=== PATIENT | male | born 1965 | race Caucasian/White ===

== ENCOUNTER 2022-09-15 15:39 | Inpatient (IN) | payer MEDICARE, MEDICAID, SELFPAY ==
[2022-09-15 15:40] VITALS: BP 145/93; PULSE 87; RESP 16; TEMP 35.6; O2SAT 96; BMI 23.2
--- NOTE | 2022-09-15 15:55 | CT_ITS ---
EXAM: CT ABDOMEN AND PELVIS WITH INTRAVENOUS CONTRAST CLINICAL INDICATION: Pain TECHNIQUE: Helically acquired images were obtained of the abdomen and pelvis with intravenous contrast. This CT exam was performed using one or more of the following dose reduction techniques: automated exposure control, adjustment of the mA and/or kV according to patient size, and/or use of iterative reconstruction technique. This report was created using [employer] report generation technology. CONTRAST: IV 100mL Isovue-300 COMPARISON: None. FINDINGS: LOWER THORAX: Normal. Lung bases are clear. No cardiomegaly. No pericardial effusion. ABDOMEN: LIVER: Homogeneous. No focal mass. GALLBLADDER AND BILE DUCTS: Gallbladder is absent. No intra- or extrahepatic biliary ductal dilation. PANCREAS: Extensive changes of acute pancreatitis noted with 6 cm pseudocyst involving the neck and proximal body of the pancreas, prominent peripancreatic edema along the anterior pararenal space with extension into the duodenal ligament region. SPLEEN: Normal. Normal size without focal cystic or solid mass. ADRENALS: Normal. No nodules. KIDNEYS AND URETERS: 5.2 cm left renal cyst. Normal renal size and position. No hydronephrosis. STOMACH AND BOWEL: Gaseous distention of the transverse colon likely related to ileus from acute pancreatitis. PELVIS: APPENDIX: Surgical clips at the base of the cecum consistent with appendectomy. BLADDER: Normal. REPRODUCTIVE: Unremarkable as visualized. No mass. ABDOMEN and PELVIS: INTRAPERITONEAL SPACE: Small amount of ascites noted within the lesser sac. BONES/JOINTS: Normal. No suspicious lytic or blastic abnormality. SOFT TISSUES: Normal. No discrete abdominal or pelvic wall hernia. VASCULATURE: Normal. Abdominal aorta is non-dilated. LYMPH NODES: Fat stranding along the small bowel mesentery noted associated with mildly enlarged mesenteric lymph nodes consistent with panniculitis. CT/Abdomen/Pelvis W IV Cont ONLY IMPRESSION: Acute pancreatitis with 6 cm pseudocyst involving the neck and body of the pancreas. Electronically Signed: Jamel Johnston MD at 16:51 EST ,
--- NOTE | 2022-09-15 15:56 | ED.VIS.GI ---
HPI HPI - GI History of Present Illness Chief Complaint: Abd Pain Narrative Narrative: 56-year-old male presents with his because of abdominal pain and weight loss that he has had since August 28 18 days ago. They relate history that he had multiple issues going on at the time when he was transferred to [facility]. states that he had pancreatitis at the time, along with a bowel blockage. 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 They have placed him on medications, and he followed up with his seed packer yesterday. They state that he has had significant weight loss over the last few weeks. Additionally he has had continued abdominal pain, but states that it is getting worse. His past medical history does include diabetes and possibly coronary artery disease. Patient denies that ever since his discharge over a week ago that he has not had nausea or vomiting. No diarrhea, no problems with bowel movements. No dysuria or hematuria. No fevers or chills. He has continuous abdominal pain that he feels is getting worse. No exacerbating or alleviating factors. His states that the seed packer performed lab work yesterday, and he was told that his potassium was high but they were unsure if that was related to possible ongoing pancreatitis. [facility] Medical History (Updated 09/15/22 @ 18:[address] Lamberto Franco, DO) Hyperthyroidism Home Medications aspirin 81 mg chewable tablet 81 mg PO DAILY HEART HEALTH 09/15/22 [History Last Taken 09/15/22] atorvastatin 40 mg tablet 40 mg PO DAILY CHOLESTEROL 09/15/22 [History Last Taken 09/14/22] buspirone 5 mg tablet 5 mg PO TID ANXIETY 09/15/22 [History Last Taken 09/14/22] metformin 500 mg tablet 500 mg PO DAILY 09/15/22 [History Last Taken 09/14/22] methimazole 10 mg tablet 10 mg PO 5X/DAY thyroid 09/15/22 [History Last Taken 09/15/22] omeprazole 20 mg capsule,delayed release 20 mg PO DAILY ACID REFLUX 09/15/22 [History Last Taken Unknown] propranolol 40 mg tablet 40 mg PO 4X/DAY HEART 09/15/22 [History Last Taken 09/14/22] sertraline 100 mg tablet 200 mg PO DAILY depression/anxiety 09/15/22 [History Last Taken 09/14/22] trazodone 100 mg tablet 200 mg PO QHS PRN Insomnia 09/15/22 [History Last Taken 09/14/22] Allergy/AdvReac Type Severity Reaction Status Date / Time No Known Allergies Allergy Verified 09/15/22 15:42 Family History (Updated 09/15/22 @ 18:[address] Lamberto Franco DO) Father Graves disease Surgical History (Updated 09/15/22 @ 18:[address] Lamberto Franco DO) Hx of cholecystectomy Social History (Updated 09/15/22 @ 18:[address] Lamberto Franco DO) Smoking Status: Unknown if ever smoked alcohol intake: former substance use type: does not use ROS ROS ED ROS Narrative Constitutional: No fever, no chills. Significant weight loss over the last 3 weeks. HEENT: No sore throat. No neck pain. No loss of vision. No rhinorrhea. Cardiovascular: No chest pain. No palpitations. No pedal edema. Respiratory: No cough, no shortness of breath. Abdominal: Positive epigastric to periumbilical abdominal pain. No nausea. No vomiting. No diarrhea. Genitourinary: No dysuria. No hematuria. Musculoskeletal: No myalgias. No arthralgias. Neurologic: No headaches. No dizziness. No lightheadedness. Skin: No rash. No change in color. Psychiatric: No depression. No anxiety. EXAM Physical Exam Narrative Exam Narrative: Afebrile. Vital signs noted. HEENT: Normocephalic. Atraumatic. PERRL, EOMI. Neck soft and supple. No point tenderness or step off. Cardiovascular: Regular rate and rhythm. No murmurs, rubs, or gallops appreciated. Respiratory: No tachypnea. Lungs clear to auscultation bilaterally. Gastrointestinal: Abdomen soft, mild epigastric and periumbilical tenderness with normoactive bowel sounds. No rebound or guarding. Neurological: Awake. Alert. Nonfocal, nonlateralizing. Skin: No rash. Normal color. No pallor. Musculoskeletal: No pedal edema. Full range of motion extremities. Const Vital Signs: 09/15/22 15:40 09/15/22 18:00 09/15/22 18:00 Temperature 96.1 F L 98.8 F Temperature Source Temporal Temporal Pulse Rate 87 79 Respiratory Rate 16 16 Blood Pressure 145/93 H 127/66 H 127/66 H Blood Pressure Mean 110 86 86 Pulse Ox 96 98 Oxygen Delivery Method Room Air Room Air MDM MDM MDM Narrative Medical decision making narrative: Comprehensive work-up was pursued. He was bolused normal saline 1 L intravenously. I will obtain CBC, CMP, and lipase along with CT imaging and urinalysis. CBC shows leukocytosis of 28.9, hemoglobin normal at 12.7, hematocrit 38.6. CMP is consistent with dehydration with a hyponatremia of 123, mild hypokalemia 5.6. I do not feel that hyperkalemia protocol needs to be instituted. I did obtain an EKG and interpreted as normal sinus rhythm at 83 bpm without ectopy or acute ST changes. I do not see peaked T waves. I do not feel that calcium gluconate is currently indicated. Chloride is low at 88. He has a BUN of 47 and a slight elevation of his creatinine at 1.66. While glucose is elevated at 310, he has a normal anion gap of 10. AST and ALT are normal with a slightly elevated alk phos of 131. Lipase is elevated at 733. Urinalysis is negative for infection with 0-5 white cells. I do not feel antibiotics are indicated. His CT of the abdomen and pelvis with IV contrast shows acute pancreatitis with a 6 cm pseudocyst at the neck and body of the pancreas. At this point in time, I do feel that he requires admission. I discussed patient with Dr. Franco. Patient will be admitted to the PCU in stable condition. Lab Data Attestation: I reviewed the patient's lab results. Labs: Laboratory Results - last 24 hr 09/15/22 09/15/22 09/15/22 16:00 16:00 16:00 WBC 28.9 H RBC 4.51 Hgb 12.7 Hct 38.6 MCV 85.6 MCH 28.2 MCHC 32.9 RDW Std Deviation 38.7 RDW Coeff of Fili 12.3 Plt Count 343 MPV 11.6 Immature Gran % (Auto) 1.800 H Neut % (Auto) 88.2 H Lymph % (Auto) 5.3 L [place] % (Auto) 4.5 Eos % (Auto) 0.1 Baso % (Auto) 0.1 Absolute Neuts (auto) 25.5 H Absolute Lymphs (auto) 1.53 Nucleated RBC % 0 Differential Comment SCANNED Sodium 123 L Potassium 5.6 H Chloride 88 L Carbon Dioxide 25.0 Anion Gap 10 BUN 47 H Creatinine 1.66 H Estim Creat Clear Calc 38.83 Est GFR (MDRD) Af Amer 41 L Est GFR (MDRD) Non-Af 34 L BUN/Creatinine Ratio 28.3 H Glucose 310 H Calcium 9.3 Total Bilirubin 1.20 H AST 19 ALT 28 Alkaline Phosphatase 131 H Total Protein 8.2 Albumin 2.2 L Globulin 6.0 H Albumin/Globulin Ratio 0.4 L Lipase 733 H Free T4 2.60 H Urine Color Urine Clarity Urine pH Ur Specific [place] Urine Protein Urine Glucose (UA) Urine Ketones Urine Occult Blood Urine Nitrite Urine Bilirubin Urine Urobilinogen Ur Leukocyte Esterase Urine RBC Urine WBC Ur Squamous Epith Cells Urine Bacteria Hyaline Casts Fine Granular Casts Urine Mucus 09/15/22 16:40 WBC RBC Hgb Hct MCV MCH MCHC RDW Std Deviation RDW Coeff of Fili Plt Count MPV Immature Gran % (Auto) Neut % (Auto) Lymph % (Auto) [place] % (Auto) Eos % (Auto) Baso % (Auto) Absolute Neuts (auto) Absolute Lymphs (auto) Nucleated RBC % Differential Comment Sodium Potassium Chloride Carbon Dioxide Anion Gap BUN Creatinine Estim Creat Clear Calc Est GFR (MDRD) Af Amer Est GFR (MDRD) Non-Af BUN/Creatinine Ratio Glucose Calcium Total Bilirubin AST ALT Alkaline Phosphatase Total Protein Albumin Globulin Albumin/Globulin Ratio Lipase Free T4 Urine Color Rola Urine Clarity Cloudy Urine pH 5.0 Ur Specific [place] 1.020 Urine Protein 30 H Urine Glucose (UA) 250 H Urine Ketones 5 H Urine Occult Blood 25 H Urine Nitrite Negative Urine Bilirubin 1 H Urine Urobilinogen Normal Ur Leukocyte Esterase 25 H Urine RBC 0-5 SEEN Urine WBC 0-5 SEEN Ur Squamous Epith Cells 0-5 SEEN Urine Bacteria 4+ Hyaline Casts 0-5 SEEN Fine Granular Casts 0-5 SEEN Urine Mucus 0 SEEN Radiography Diagnostic Testing: Clinical Impression(s) from Imaging Studies Abdomen/Pelvis CT 09/15/22 15:55 IMPRESSION: Acute pancreatitis with 6 cm pseudocyst involving the neck and body of the pancreas. Electronically Signed: Jamel Johnston MD at 16:51 EST Reading Location ID and State: [facility] / [place] Tel , Service support , Discharge Plan Dx/Rx/DC Orders Clinical Impression: Pancreatitis, Pancreatic pseudocyst, Hyponatremia, Dehydration Disposition Disposition: Acute Care Hospital [facility] Discharge Date/Time: 09/15/22 21:51
[2022-09-15] MEDS: 0.9% Normal Saline 1,000 ML 1000 ML IV (16:04)
[2022-09-15 16:17] LABS: Absolute Lymphocyte Count 1.53 X10^3/uL (0.83-4.51); Absolute Neutrophil Count 25.5 X10^3/uL (2.0-7.7); Basophil# 0.04 X10^3/uL; Basophil% 0.1 % (0-1); Eosinophil# 0.03 X10^3/uL; Eosinophils% 0.1 % (0-5); Hematocrit 38.6 % (37-47); Hemoglobin 12.7 g/dL (12.0-15.0); Lymphocyte # 1.53 X10^3/ul (0.83-4.51); Lymphocyte % 5.3 % (19-41); Mean Corp Hgb Conc 32.9 g/dL (32-36); Mean Corpuscular Hgb 28.2 pg (27.0-32.0); Mean Corpuscular Volume 85.6 fL (81-99); Mean Platelet Vol. 11.6 fl (6.2-12.0); Monocyte# 1.29 X10^3/uL; Monocyte% 4.5 % (0-10); NRBC Flagged by Analyzer 0 % (0-5); Neutrophil # 25.49 X10^3/uL (2.7-7.7); Neutrophil % 88.2 % (47-70); POSITIVE DIFFERENTIAL YES; Platelet Count 343 K/mm3 (150-450); RBC Distribution Width CV 12.3 % (11.6-14.6); RBC Distribution Width SD 38.7 fl (35.1-43.9); Red Blood Count 4.51 M/mm3 (4.2-5.4); White Blood Count 28.9 K/mm3 (4.4-11.0)
[2022-09-15] MEDS: Morphine 4 MG/ML Syringe IV (16:17)
[2022-09-15 16:30] LABS: Differential Indicated SCAN CRITERIA MET
[2022-09-15 16:45] LABS: Mucous, Urine 0 SEEN /hpf (<or=2+)
[2022-09-15 16:46] LABS: Color, Urine Amber (Yellow); Glucose, Dipstick 250 mg/dl (Normal); Ketone-Dipstick 5 mg/dl (Negative); Leukocyte Esterase-Dipstick 25 /ul (Negative); Nitrite-Dipstick Negative (Negative); Occult Blood-Urine 25 /ul (Negative); Protein-Dipstick 30 mg/dl (Negative); Urine Clarity Cloudy (Clear); Urine Urobilinogen Normal (Normal)
[2022-09-15 16:47] LABS: Differential Comment SCANNED
[2022-09-15 16:50] LABS: ALB/GLOB Ratio 0.4 RATIO (0.9-2.4); AST(SGOT) 19 U/L (15-37); Alanine Aminotransfer ALT/SGPT 28 U/L (16-61); Albumin, Serum 2.2 g/dL (3.2-5.0); Alkaline Phosphatase 131 U/L (45-117); Anion Gap 10 (5-15); BUN 47 mg/dL (7-18); BUN/Creat Ratio 28.3 RATIO (10-20); Calcium,Total 9.3 mg/dL (8.5-10.1); Chloride 88 mmol/L (98-107); Creatinine, Serum 1.66 mg/dL (0.70-1.30); EST Glomerular Filtration Rate 34 mL/min (>60); Est Glom Filt Rate - Afr Amer 41 mL/min (>60); Estimated Creatinine Clearance 38.83 ml/min; Glucose 310 mg/dL (74-106); Lipase 733 U/L (73-393); Potassium 5.6 mmol/L (3.5-5.1); Protein, Total 8.2 g/dL (6.4-8.2); Sodium Level 123 mmol/L (136-145)
--- NOTE | 2022-09-15 16:56 | EKG12_ITS ---
Test Reason : ABD PAIN Blood Pressure : / mmHG Vent. Rate : 083 BPM Atrial Rate : 083 BPM P-R Int : 136 ms QRS Dur : 074 ms QT Int : 392 ms P-R-T Axes : 021 032 -32 degrees QTc Int : 460 ms Normal sinus rhythm Nonspecific ST and T wave abnormality Prolonged QT Abnormal ECG Confirmed by PETER DOBBS, ALICIA ([id number]), make up editor SHON DUBOIS ([id number]) on 09/16/2022 10:41:00 AM Referred By: Confirmed By:ALICIA GREEN MD
[2022-09-15 16:59] LABS: Urine Bilirubin Dipstick 1 mg/dL (Negative)
--- NOTE | 2022-09-15 17:10 | NURSING ---
NO OLD EKGS
[2022-09-15 17:15] LABS: Squamous Epithelial Cells - UA 0-5 SEEN /hpf (0-5); White Blood Cells 0-5 SEEN /hpf (0-5)
[2022-09-15 17:16] LABS: Bacteria 4+ /hpf (None Seen); Fine Granular Cast- Urine 0-5 SEEN /lpf (0-5); Hyaline Cast 0-5 SEEN /lpf (0-5)
[2022-09-15 17:17] LABS: Red Blood Cells-Urine 0-5 SEEN /hpf (0-5)
[2022-09-15 18:00] VITALS: BP 127/66; PULSE 79; RESP 16; TEMP 37.1; O2SAT 98
--- NOTE | 2022-09-15 18:01 | NURSING ---
MED SURG JOPPERI PANCREATITIS, HYPONATREMIA
--- NOTE | 2022-09-15 18:34 | MRI_ITS ---
EXAM: MR ABDOMEN WITHOUT INTRAVENOUS CONTRAST, MRCP PROTOCOL CLINICAL INDICATION: Pancreatitis TECHNIQUE: Multiplanar and multisequence MR images of the abdomen without intravenous contrast obtained with MRCP sequence. Three-dimensional post-processing reconstructions were performed. This report was created using [employer] report generation technology. COMPARISON: CT abdomen and pelvis 09/15/2022 FINDINGS: LOWER THORAX: Normal. No pleural effusion. LIVER: Edematous changes also extend along the hepatoduodenal ligament to the evert hepatis. GALLBLADDER AND BILE DUCTS: No dilatation of the biliary tree. Gallbladder is absent. No choledochal filling defect. PANCREAS: 6.6 cm pseudocyst again noted involving the head and uncinate process of the pancreas. Diffuse edema within the retroperitoneum adjacent to the pancreas. Pancreatic duct is nonvisualized. SPLEEN: Normal. Non-enlarged. ADRENALS: Normal. No nodules. KIDNEYS AND URETERS: 5 cm left renal cyst. Normal renal size and position. No hydronephrosis. INTRAPERITONEAL SPACE: Small volume ascites noted within the lesser sac engulfing the caudate lobe of the liver.. VASCULATURE: Normal. Abdominal aorta is non-dilated. LYMPH NODES: No enlarged lymph nodes. MRI/MRCP Abdomen without Contrast IMPRESSION: 1. 6.6 cm pseudocyst involving the head and uncinate process of the pancreas. 2. Peripancreatic edema consistent with acute pancreatitis with involvement of the evert hepatis and hepatoduodenal ligament. 3. Lesser sac ascites. 4. Normal biliary tree. Electronically Signed: Jamel Johnston MD at 11:06 EST ,
--- NOTE | 2022-09-15 18:34 | ECHOD_ITS ---
Reason For Study: Abn EKG Procedure This was a 2D Doppler, Color Flow transthoracic echocardiogram. Exam performed portable in patient room. Left Ventricle Normal left ventricle. The estimated ejection fraction is 55-60 %. Right Ventricle Normal right ventricle. Normal systolic function. Atria Normal left atrium. Normal right atrium. Mitral Valve The mitral valve is structurally normal. No prolapse or stenosis seen. Trivial mitral valve insufficiency. Tricuspid Valve Normal tricuspid valve. Mild eccentric tricuspid valve insufficiency. Trivial tricuspid valve insufficiency. Aortic Valve Normal aortic valve. Pulmonic Valve The pulmonic valve is not well visualized. Great Vessels Normal aortic root. Pericardium/Pleural No pericardial effusion. MMode/2D Measurements & Calculations LVIDd: 3.9 cm IVSd: 0.99 cm Ao root diam: 2.8 cm LVIDs: 2.1 cm LVPWd: 1.0 cm RVDd: 2.5 cm FS: 46.0 % LAV(MOD-bp): 19.5 ml LVAd ap4: 20.9 cm2 LVAd ap2: 22.3 cm2 LAV(MOD-bp) Indexed: 12.6 ml/m2 LVLd ap4: 7.4 cm LVLd ap2: 7.6 cm LAV(MOD-sp2): 15.3 ml EDV(MOD-sp4): 48.1 ml EDV(MOD-sp2): 55.2 ml LAV(MOD-sp4): 22.0 ml EDV(sp4-el): 49.8 ml EDV(sp2-el): 56.0 ml LVAs ap4: 10.3 cm2 LVAs ap2: 11.8 cm2 LVLs ap4: 6.2 cm LVLs ap2: 6.4 cm ESV(MOD-sp4): 14.9 ml ESV(MOD-sp2): 20.1 ml ESV(sp4-el): 14.4 ml ESV(sp2-el): 18.7 ml EF(MOD-sp4): 69.0 % EF(MOD-sp2): 63.5 % EF(sp4-el): 71.2 % SV(MOD-sp4): 33.2 ml SV(MOD-sp2): 35.0 ml SV(sp4-el): 35.5 ml LA dimension(2D): 2.7 cm LA A4 area: 11.6 cm2 RA A4 area: 8.5 cm2 Doppler Measurements & Calculations MV E max jose: 71.6 cm/sec Lat Peak E' Jose: 10.0 cm/sec Med Peak E' Jose: 9.8 cm/sec MV A max jose: 108.2 cm/sec E/E' lat: 7.2 E/E' med: 7.3 MV E/A: 0.66 Ao V2 max: 184.4 cm/sec LV V1 max: 131.7 cm/sec PA V2 max: 118.1 cm/sec Ao max P.6 mmHg LV V1 max P.9 mmHg ECHO/Echo Complete Interpretation Summary The estimated ejection fraction is 55-60 %. Over allNormal LV systolic function No previous study to compare Ordering Physician: Lamberto Franco Referring Physician: Cristopher Oliveros Performed By: Duyen Croft RDCS
--- NOTE | 2022-09-15 18:35 | PCM.HP.STD ---
HPI - General General Date of Admission: 09/15/22 Date of Service: 09/15/22 Chief Complaint: Abdominal pain HPI Narrative JAILYN HANNA, is a 56 M who presents with ongoing abdominal pain. Patient was admitted from August 28 through at [facility] for pancreatitis and thyroid storm. Patient has since been started on methimazole for his hyperthyroidism. Patient also had pancreatitis. Etiology of the pancreatitis was apparently not determined according the patient's spouse, who is at bedside. Since being discharged, patient has continued to have abdominal pain that goes into his back and. Since his hospitalization in August 28, the patient has lost 40 pounds. Patient has not drank alcohol in 4 years and has had his gallbladder removed. Patient while he was there was told he had a weak heart and was recommended follow-up with a last putter away as outpatient. The patient is a poor historian and the patient's spouse does not know what they did for his heart over there. [facility] Medical History (Updated 09/15/22 @ 18:[address] Lamberto Franco, ) Hyperthyroidism Home Medications aspirin 81 mg chewable tablet 81 mg PO DAILY HEART HEALTH 09/15/22 [History Last Taken 09/15/22] atorvastatin 40 mg tablet 40 mg PO DAILY CHOLESTEROL 09/15/22 [History Last Taken 09/14/22] buspirone 5 mg tablet 5 mg PO TID ANXIETY 09/15/22 [History Last Taken 09/14/22] metformin 500 mg tablet 500 mg PO DAILY 09/15/22 [History Last Taken 09/14/22] methimazole 10 mg tablet 10 mg PO 5X/DAY thyroid 09/15/22 [History Last Taken 09/15/22] omeprazole 20 mg capsule,delayed release 20 mg PO DAILY ACID REFLUX 09/15/22 [History Last Taken Unknown] propranolol 40 mg tablet 40 mg PO 4X/DAY HEART 09/15/22 [History Last Taken 09/14/22] sertraline 100 mg tablet 200 mg PO DAILY depression/anxiety 09/15/22 [History Last Taken 09/14/22] trazodone 100 mg tablet 200 mg PO QHS PRN Insomnia 09/15/22 [History Last Taken 09/14/22] Allergy/AdvReac Type Severity Reaction Status Date / Time No Known Allergies Allergy Verified 09/15/22 15:42 Family History (Updated 09/15/22 @ 18:[address] Lamberto Franco DO) Father Graves disease Surgical History (Updated 09/15/22 @ 18:[address] Lamberto Franco DO) Hx of cholecystectomy Social History (Updated 09/15/22 @ 18:[address] Lamberto Franco DO) Smoking Status: Unknown if ever smoked alcohol intake: former substance use type: does not use ROS ROS Narrative Patient is a poor historian and therefore much of the history is through the emergency room physician as well as the patient's spouse Vital Signs Vital Signs Vital Signs: 09/15/22 15:40 09/15/22 18:00 09/15/22 18:00 Temperature 35.6 C L 37.1 C Temperature Source Temporal Temporal Pulse Rate 87 79 Respiratory Rate 16 16 Blood Pressure 145/93 H 127/66 H 127/66 H Blood Pressure Mean 110 86 86 Pulse Ox 96 98 Oxygen Delivery Method Room Air Room Air Weight Weight: 57.606 kg Body Mass Index (BMI) 23.2 Physical Exam Const General Appearance: cooperative Orientation / Consciousness: confused HEENT normocephalic and head/scalp atraumatic Neck no lymphadenopathy Neck Narrative: Thyromegaly Resp normal respiratory effort, no retractions, no use of accessory muscles and clear to auscultation bilaterally Cardio regular rate, regular rhythm, S1 normal heart sound and S2 normal heart sound GI normal to inspection, nondistended, normoactive bowel sounds and non-distended GI Narrative: Epigastric abdominal pain Extremity normal to inspection and no clubbing, cyanosis or edema Neuro oriented x3 Results Lab / Micro Data Attestation: I reviewed the patient's lab results. Result Diagrams: 09/15/22 16:00 09/15/22 16:00 Labs: Laboratory Results - last 24 hr 09/15/22 16:00: WBC 28.9 H, RBC 4.51, Hgb 12.7, Hct 38.6, MCV 85.6, MCH 28.2, MCHC 32.9, RDW Std Deviation 38.7, RDW Coeff of Fili 12.3, Plt Count 343, MPV 11.6, Immature Gran % (Auto) 1.800 H, Neut % (Auto) 88.2 H, Lymph % (Auto) 5.3 L, [place] % (Auto) 4.5, Eos % (Auto) 0.1, Baso % (Auto) 0.1, Absolute Neuts (auto) 25.5 H, Absolute Lymphs (auto) 1.53, Nucleated RBC % 0, Differential Comment SCANNED 09/15/22 16:00: Sodium 123 L, Potassium 5.6 H, Chloride 88 L, Carbon Dioxide 25.0, Anion Gap 10, BUN 47 H, Creatinine 1.66 H, Estim Creat Clear Calc 38.83, Est GFR (MDRD) Af Amer 41 L, Est GFR (MDRD) Non-Af 34 L, BUN/Creatinine Ratio 28.3 H, Glucose 310 H, Calcium 9.3, Total Bilirubin 1.20 H, AST 19, ALT 28, Alkaline Phosphatase 131 H, Total Protein 8.2, Albumin 2.2 L, Globulin 6.0 H, Albumin/Globulin Ratio 0.4 L, Lipase 733 H 09/15/22 16:40: Urine Color Rola, Urine Clarity Cloudy, Urine pH 5.0, Ur Specific [place] 1.020, Urine Protein 30 H, Urine Glucose (UA) 250 H, Urine Ketones 5 H, Urine Occult Blood 25 H, Urine Nitrite Negative, Urine Bilirubin 1 H, Urine Urobilinogen Normal, Ur Leukocyte Esterase 25 H, Urine RBC 0-5 SEEN, Urine WBC 0-5 SEEN, Ur Squamous Epith Cells 0-5 SEEN, Urine Bacteria 4+, Hyaline Casts 0-5 SEEN, Fine Granular Casts 0-5 SEEN, Urine Mucus 0 SEEN EKG Initial EKG: Attestation: I personally reviewed and interpreted this EKG as follows: Prior EKG tracings: available for review EKG Rhythm Intrepretation: Sinus Rhythm (ST depressions in the anterior and lateral leads) Radiology Impression Abdomen/Pelvis CT 09/15/22 15:55 IMPRESSION: Acute pancreatitis with 6 cm pseudocyst involving the neck and body of the pancreas. Electronically Signed: Jamel Johnston MD at 16:51 EST , Assessment & Plan Assessment/Plan (1) Pancreatitis: QUALIFIERS: Acute pancreatitis complication: no infection or necrosis Chronicity: acute Pancreatitis type: unspecified pancreatitis type Qualified Code(s): K85.90 - Acute pancreatitis without necrosis or infection, unspecified PLAN: Patient is status postcholecystectomy and has not had alcohol in 4 years Has evidence of a pancreatic pseudocyst Plan is for an MRCP Consult gastroenterology for further recommendations. (2) Hyperthyroidism: PLAN: Patient had thyroid storm during his last hospitalization at [facility] this month Continue with methimazole Check TSH and free T4 (3) Abnormal EKG: PLAN: was told the patient has a cardiomyopathy during the last hospitalization but did not see cardiology. They were waiting on seeing cardiology as outpatient Patient does have ST depressions in the anterior lateral leads. Check echocardiogram (4) Hyperkalemia: PLAN: No EKG changes consistent with hyperkalemia IV fluids and monitor (5) Pancreatic pseudocyst: PLAN: Secondary to pancreatitis Cannot rule out being infected. Very concerning is the patient's white count is extremely high. Start meropenem check blood cultures (6) Weight loss: PLAN: Unclear etiology. showed me a picture of him before and patient. And a 40 pound weight loss that he is experienced over the past month appears not to be an exaggeration. He was obese at that time and now is very emaciated. Consult nutrition (7) Encephalopathy: PLAN: Unclear baseline. Check ammonia Also evaluate thyroid function PLAN: Plan VTE prophylaxis with enoxaparin Case discussed with the patient's at bedside. Charges/Coding Visit Charges Inpatient E&M: 20337 Init Hosp L3
[2022-09-15 18:49] VITALS: BP 127/66; PULSE 79; RESP 16; TEMP 37.1; O2SAT 98
[2022-09-15 19:15] LABS: Ammonia < 10.0 umol/L (11-32)
--- NOTE | 2022-09-15 20:17 | ED.RN ---
Pt in MRI unable to lay flat. 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 TORB. Dr. Franco 0.5mg Dilaudid IV.
[2022-09-15] MEDS: HYDROmorphone 0.5 MG/0.5 ML SYRINGE IV (20:26)
[2022-09-15] MEDS: 0.9% Normal Saline 1,000 ML 150 ML IV (21:47)
--- NOTE | 2022-09-15 21:51 | ED.RN ---
declines pain meds at this time
[2022-09-15] MEDS: Acetaminophen 500 MG Tablet 1000 MG PO (22:15)
[2022-09-15 22:18] VITALS: BMI 22.3
[2022-09-15 22:25] VITALS: BP 151/80; PULSE 83; RESP 20; TEMP 36.6; O2SAT 100
[2022-09-15 22:59] VITALS: PULSE 88
[2022-09-15 23:09] LABS: Troponin-I HS 11 pg/mL (3.0-78.0)
[2022-09-16] VITALS (14 sets, daily range): BP systolic 147–179; BP diastolic 89–103; PULSE 86–107; RESP 16–19; TEMP 36.4–37.2; O2SAT 96–100
[2022-09-16] MEDS: Acetaminophen 500 MG Tablet 1000 MG PO ×3 (05:31→21:56)
[2022-09-16] MEDS: oxyCODONE 5 MG Tablet PO ×3 (05:31→14:04)
[2022-09-16 05:58] LABS: Absolute Lymphocyte Count 1.24 X10^3/uL (0.83-4.51); Absolute Neutrophil Count 22.6 X10^3/uL (2.0-7.7); Basophil# 0.04 X10^3/uL; Basophil% 0.2 % (0-1); Eosinophil# 0.02 X10^3/uL; Eosinophils% 0.1 % (0-5); Hematocrit 33.4 % (40-54); Hemoglobin 10.9 g/dL (13.0-16.5); Lymphocyte # 1.24 X10^3/ul (0.83-4.51); Lymphocyte % 4.9 % (19-41); Mean Corp Hgb Conc 32.6 g/dL (32-36); Mean Corpuscular Hgb 28.2 pg (27.0-32.0); Mean Corpuscular Volume 86.3 fL (80-94); Mean Platelet Vol. 11.2 fl (6.2-12.0); Monocyte# 1.18 X10^3/uL; Monocyte% 4.7 % (0-10); NRBC Flagged by Analyzer 0 % (0-5); Neutrophil # 22.56 X10^3/uL (2.7-7.7); Neutrophil % 88.8 % (47-70); POSITIVE DIFFERENTIAL YES; Platelet Count 255 K/mm3 (150-450); RBC Distribution Width CV 12.2 % (11.6-14.6); RBC Distribution Width SD 38.8 fl (35.1-43.9); Red Blood Count 3.87 M/mm3 (4.6-6.2); White Blood Count 25.4 K/mm3 (4.4-11.0)
[2022-09-16 06:03] LABS: Differential Indicated SCAN CRITERIA MET
[2022-09-16 06:20] LABS: Differential Comment SCANNED
[2022-09-16 06:57] LABS: ALB/GLOB Ratio 0.3 RATIO (0.9-2.4); AST(SGOT) 16 U/L (15-37); Alanine Aminotransfer ALT/SGPT 23 U/L (16-61); Albumin, Serum 1.8 g/dL (3.2-5.0); Alkaline Phosphatase 103 U/L (45-117); Anion Gap 9 (5-15); BUN 41 mg/dL (7-18); Calcium,Total 8.9 mg/dL (8.5-10.1); Chloride 95 mmol/L (98-107); Creatinine, Serum 1.08 mg/dL (0.70-1.30); EST Glomerular Filtration Rate 75 mL/min (>60); Est Glom Filt Rate - Afr Amer 91 mL/min (>60); Estimated Creatinine Clearance 59.68 ml/min; Globulin 5.2 g/dL (2.2-4.2); Glucose 219 mg/dL (74-106); Potassium 4.7 mmol/L (3.5-5.1); Sodium Level 124 mmol/L (136-145); Thyroid Stim Hormone (TSH) < 0.01 uIU/mL (0.358-3.74)
--- NOTE | 2022-09-16 07:53 | PCM.PN.HOSP ---
Subjective Subjective Follow-up for acute pancreatitis Patient is a poor historian and for most part of the history, abdominal pain he is not specific and not descriptive Objective Data Objective Data Vital Signs: Vital Signs Temp Pulse Resp BP Pulse Ox O2 Del Method 97.8 F 86 18 166/89 H 97 Room Air 09/16/22 05:34 09/16/22 05:34 09/16/22 05:34 09/16/22 05:34 09/16/22 05:34 09/16/22 05:34 Oxygen Delivery Method Room Air Weight: 122 lb 2.177 oz Body Mass Index (BMI) 22.3 Intake & Output: Intake and Output for Last 24 Hours 09/14/22 09/15/22 09/16/22 23:59 23:59 23:59 Intake Total 1000 / 1000 1360 / 1360 Output Total 300 / 300 Balance 1000 / 1000 1060 / 1060 Lab / Micro Data Result Diagrams: 09/16/22 05:49 09/16/22 05:49 Labs: Laboratory Results - last 24 hr 09/15/22 16:00: WBC 28.9 H, RBC 4.51, Hgb 12.7, Hct 38.6, MCV 85.6, MCH 28.2, MCHC 32.9, RDW Std Deviation 38.7, RDW Coeff of Fili 12.3, Plt Count 343, MPV 11.6, Immature Gran % (Auto) 1.800 H, Neut % (Auto) 88.2 H, Lymph % (Auto) 5.3 L, [place] % (Auto) 4.5, Eos % (Auto) 0.1, Baso % (Auto) 0.1, Absolute Neuts (auto) 25.5 H, Absolute Lymphs (auto) 1.53, Nucleated RBC % 0, Differential Comment SCANNED 09/15/22 16:00: Sodium 123 L, Potassium 5.6 H, Chloride 88 L, Carbon Dioxide 25.0, Anion Gap 10, BUN 47 H, Creatinine 1.66 H, Estim Creat Clear Calc 38.83, Est GFR (MDRD) Af Amer 41 L, Est GFR (MDRD) Non-Af 34 L, BUN/Creatinine Ratio 28.3 H, Glucose 310 H, Calcium 9.3, Total Bilirubin 1.20 H, AST 19, ALT 28, Alkaline Phosphatase 131 H, Total Protein 8.2, Albumin 2.2 L, Globulin 6.0 H, Albumin/Globulin Ratio 0.4 L, Lipase 733 H 09/15/22 16:00: Free T4 2.60 H 09/15/22 16:40: Urine Color Rola, Urine Clarity Cloudy, Urine pH 5.0, Ur Specific [place] 1.020, Urine Protein 30 H, Urine Glucose (UA) 250 H, Urine Ketones 5 H, Urine Occult Blood 25 H, Urine Nitrite Negative, Urine Bilirubin 1 H, Urine Urobilinogen Normal, Ur Leukocyte Esterase 25 H, Urine RBC 0-5 SEEN, Urine WBC 0-5 SEEN, Ur Squamous Epith Cells 0-5 SEEN, Urine Bacteria 4+, Hyaline Casts 0-5 SEEN, Fine Granular Casts 0-5 SEEN, Urine Mucus 0 SEEN 09/15/22 18:40: Ammonia < 10.0 L 09/15/22 22:35: Troponin I High Sens 11 09/16/22 05:49: WBC 25.4 H, RBC 3.87 L, Hgb 10.9 L, Hct 33.4 L, MCV 86.3, MCH 28.2, MCHC 32.6, RDW Std Deviation 38.8, RDW Coeff of Fili 12.2, Plt Count 255, MPV 11.2, Immature Gran % (Auto) 1.300 H, Neut % (Auto) 88.8 H, Lymph % (Auto) 4.9 L, [place] % (Auto) 4.7, Eos % (Auto) 0.1, Baso % (Auto) 0.2, Absolute Neuts (auto) 22.6 H, Absolute Lymphs (auto) 1.24, Nucleated RBC % 0, Differential Comment SCANNED 09/16/22 05:49: Sodium 124 L, Potassium 4.7, Chloride 95 L, Carbon Dioxide 20.0 L, Anion Gap 9, BUN 41 H, Creatinine 1.08, Estim Creat Clear Calc 59.68, Est GFR (MDRD) Af Amer 91, Est GFR (MDRD) Non-Af 75, BUN/Creatinine Ratio 38.0 H, Glucose 219 H, Calcium 8.9, Total Bilirubin 0.90, AST 16, ALT 23, Alkaline Phosphatase 103, Total Protein 7.0, Albumin 1.8 L, Globulin 5.2 H, Albumin/Globulin Ratio 0.3 L, TSH < 0.01 L Radiography Diagnostic Testing: Radiology Impression Abdomen/Pelvis CT 09/15/22 15:55 IMPRESSION: Acute pancreatitis with 6 cm pseudocyst involving the neck and body of the pancreas. Electronically Signed: Jamel Johnston MD at 16:51 EST , Physical Exam Narrative Physical exam General: Alert, Oriented x3, Cooperative HEENT: Atraumatic, PERRLA, EOMI, Normocephalic Oral: No Gingival or Mucosal Lesions/ Ulcerations Neck: Supple, No JVD, Negative Carotid Bruits Lungs: Air entry diminished in bilateral lung bases. No crepitation/rhonchi Cardiovascular: Regular rate, Regular Rhythm, Normal S1, Normal S2, No murmurs Abdomen: Mild tenderness present around the central abdomen, umbilical area. Bowel Sounds Present, Soft, Non-Distended : No renal angle tenderness. No suprapubic tenderness. Extremities: No edema, Capillary Refill Less than 3 Seconds Skin: No rashes, No breakdown Musculoskeletal: No Tenderness to Palpation of Joints or Extremities Neurological: Cranial nerves II-XII grossly intact, DTR 2+/4 and Symmetrical, Neuro grossly intact Psych/Mental Status: Normal Affect, Appropriate. Assessment & Plan Assessment/Plan (1) Pancreatitis: QUALIFIERS: Acute pancreatitis complication: no infection or necrosis Chronicity: acute Pancreatitis type: unspecified pancreatitis type Qualified Code(s): K85.90 - Acute pancreatitis without necrosis or infection, unspecified PLAN: 56-year-old is being admitted with abdominal pain and weight loss since August 28, 18 days ago. Patient was admitted between August 28 to in [facility] record pancreatitis was diagnosed with bowel blockage as per . He was discharged about a week ago with patient continued to have constant abdominal pain and weight loss about 40 pounds since August 28. Patient is status postcholecystectomy and has not had alcohol in 4 years. MRCP shows 6.6 cm pseudocyst involving head and uncinate process of pancreas. Peripancreatic edema consistent with acute pancreatitis involving evert hepatis and hepatoduodenal ligament. Lesser sac ascites. Normal biliary tree. CT abdomen earlier also showed pseudocyst. Liver chemistry at admission shows mildly elevated alkaline phosphatase and TB 1.2 which today became normal. Consult gastroenterology for further recommendations. Clinical Impression(s) from Imaging Studies Abdomen/Pelvis CT 09/15/22 15:55 IMPRESSION: Acute pancreatitis with 6 cm pseudocyst involving the neck and body of the pancreas. MRCP 09/15/22 18:34 IMPRESSION: 1. 6.6 cm pseudocyst involving the head and uncinate process of the pancreas. 2. Peripancreatic edema consistent with acute pancreatitis with involvement of the evert hepatis and hepatoduodenal ligament. 3. Lesser sac ascites. 4. Normal biliary tree. (2) Hyperthyroidism: PLAN: Patient had thyroid storm during his last hospitalization at [place] this month Continue with methimazole TSH less than 0.01. Free T4 2.6 high. I will increase the dose of methimazole Laboratory Results 09/15/22 16:00: WBC 28.9 H, RBC 4.51, Hgb 12.7, Hct 38.6, MCV 85.6, MCH 28.2, MCHC 32.9, RDW Std Deviation 38.7, RDW Coeff of Fili 12.3, Plt Count 343, MPV 11.6, Immature Gran % (Auto) 1.800 H, Neut % (Auto) 88.2 H, Lymph % (Auto) 5.3 L, [place] % (Auto) 4.5, Eos % (Auto) 0.1, Baso % (Auto) 0.1, Absolute Neuts (auto) 25.5 H, Absolute Lymphs (auto) 1.53, Nucleated RBC % 0, Differential Comment SCANNED 09/15/22 16:00: Sodium 123 L, Potassium 5.6 H, Chloride 88 L, Carbon Dioxide 25.0, Anion Gap 10, BUN 47 H, Creatinine 1.66 H, Estim Creat Clear Calc 38.83, Est GFR (MDRD) Af Amer 41 L, Est GFR (MDRD) Non-Af 34 L, BUN/Creatinine Ratio 28.3 H, Glucose 310 H, Calcium 9.3, Total Bilirubin 1.20 H, AST 19, ALT 28, Alkaline Phosphatase 131 H, Total Protein 8.2, Albumin 2.2 L, Globulin 6.0 H, Albumin/Globulin Ratio 0.4 L, Lipase 733 H 09/15/22 16:00: Free T4 2.60 H 09/15/22 16:40: Urine Color Rola, Urine Clarity Cloudy, Urine pH 5.0, Ur Specific [place] 1.020, Urine Protein 30 H, Urine Glucose (UA) 250 H, Urine Ketones 5 H, Urine Occult Blood 25 H, Urine Nitrite Negative, Urine Bilirubin 1 H, Urine Urobilinogen Normal, Ur Leukocyte Esterase 25 H, Urine RBC 0-5 SEEN, Urine WBC 0-5 SEEN, Ur Squamous Epith Cells 0-5 SEEN, Urine Bacteria 4+, Hyaline Casts 0-5 SEEN, Fine Granular Casts 0-5 SEEN, Urine Mucus 0 SEEN 09/15/22 18:40: Ammonia < 10.0 L 09/15/22 22:35: Troponin I High Sens 11 09/16/22 05:49: WBC 25.4 H, RBC 3.87 L, Hgb 10.9 L, Hct 33.4 L, MCV 86.3, MCH 28.2, MCHC 32.6, RDW Std Deviation 38.8, RDW Coeff of Fili 12.2, Plt Count 255, MPV 11.2, Immature Gran % (Auto) 1.300 H, Neut % (Auto) 88.8 H, Lymph % (Auto) 4.9 L, [place] % (Auto) 4.7, Eos % (Auto) 0.1, Baso % (Auto) 0.2, Absolute Neuts (auto) 22.6 H, Absolute Lymphs (auto) 1.24, Nucleated RBC % 0, Differential Comment SCANNED 09/16/22 05:49: Sodium 124 L, Potassium 4.7, Chloride 95 L, Carbon Dioxide 20.0 L, Anion Gap 9, BUN 41 H, Creatinine 1.08, Estim Creat Clear Calc 59.68, Est GFR (MDRD) Af Amer 91, Est GFR (MDRD) Non-Af 75, BUN/Creatinine Ratio 38.0 H, Glucose 219 H, Calcium 8.9, Total Bilirubin 0.90, AST 16, ALT 23, Alkaline Phosphatase 103, Total Protein 7.0, Albumin 1.8 L, Globulin 5.2 H, Albumin/Globulin Ratio 0.3 L, TSH < 0.01 L (3) Abnormal EKG: PLAN: was told the patient has a cardiomyopathy during the last hospitalization but did not see cardiology. They were waiting on seeing cardiology as outpatient Patient does have ST depressions in the anterior lateral leads. Echo is completed not reported yet (4) Hyperkalemia: PLAN: No EKG changes consistent with hyperkalemia IV fluids and monitor (5) Pancreatic pseudocyst: PLAN: Secondary to pancreatitis Cannot rule out being infected. Very concerning is the patient's white count is extremely high. Patient on IV meropenem. (6) Weight loss: PLAN: Unclear etiology. showed me a picture of him before and patient. And a 40 pound weight loss that he is experienced over the past month appears not to be an exaggeration. He was obese at that time and now is very emaciated. Consult nutrition (7) Encephalopathy: PLAN: Unclear baseline. Ammonia level normal. I think patient is chronically mental health problem rather than acute. PLAN: Plan VTE prophylaxis with enoxaparin Case discussed with the patient's at bedside. Charges/Coding Visit Charges Inpatient E&M: 21964 Subs Hosp L2
[2022-09-16] MEDS: Enoxaparin 40 MG/0.4 ML Syringe SC (09:36)
[2022-09-16] MEDS: 0.9% Normal Saline 1,000 ML 100 ML IV (10:48)
--- NOTE | 2022-09-16 12:45 | CM.UR ---
MARCK FLORES Assessment: Face to Face with pt for initial transition planning/care coordination assessment. RN MARK introduced self and role at [facility], pt voices understanding and consents to assessment. Pt in bed. Family into the room after assessment. Pt is A/O and answers all questions appropriately at this time. Care providers, pharmacy, and demographics verified/updated. Admitting Dx: Pancreatitis. PCP: [facility]. Specialists: None. Preferred Pharmacy: [facility]. Insurance: Medicare Part A B, Medicaid [employer]. Prescription Benefit: Yes. LW/HPOA: Pt denies having a LW/DPOA and denies need for info regarding AD. LNOK: Patti Jones- . Living Arrangements: Pt lives with his and two children in a mobile home. Pt can't recall the number of steps, with a railing, to enter. Pt reports difficulty sometimes navigating the stairs. Pt calls his live-in dtr to assist. Pt reports being I of ADL's. Pt states he hasn't drank since April 20, four years ago. Pt stopped smoking cigarettes this month. Transportation: Pt's and [id number] transport. DME/HHC/SNF: Pt reports having a walker and shower chair. Pt denies any HHC currently or in the past. Pt denies any SNF stays. Pt states he may need HHC upon DC but he wants to see how he's doing closer to DC. CM to follow. Advised pt to ask CM if any further question/concerns/needs arise, voices understanding. Pt Goal: Home. Open to HHC if needed. Plan:?TBD.
[2022-09-16] MEDS: Propranolol 40 MG Tablet PO ×2 (16:42→22:00)
--- NOTE | 2022-09-16 17:01 | CON.PCM.GI_ITS ---
HPI Consult Data Date of Consult: 09/16/22 HPI Narrative Reason for Consultation: Pancreatitis HPI Narrative: JAILYN HANNA, is a 56 M who presents from home with worsening abdominal pain.? Patient was admitted from August 28 through at [place] for pancreatitis and thyroid storm.? Patient has since been started on methimazole for his hyperthyroidism.? Patient also had pancreatitis.? Etiology of the pancreatitis was apparently not determined according the patient's spouse, who is at bedside. ? Since being discharged, patient has continued to have abdominal pain that goes into his back and.? Since his hospitalization in August 28, the patient has lost 40 pounds.? Patient has not drank alcohol in 4 years and has had his gal lbladder removed.? After talking to him it really seems like he had a real issue with alcohol. His son said that if he did not stop drinking he was not going to talk to them anymore. The patient is a poor historian. He does not know if he has had pancreatitis in the past. His biochemical profile did show an elevated amylase lipase and mildly elevated white blood cell count. His bilirubin was mildly elevated at 1.2 which was unfractionated. His alkaline phosphatase was normal at 75, AST 16 and ALT of 60. CT scan of the abdomen and pelvis: GALLBLADDER AND BILE DUCTS:? Gallbladder is absent.? No intra- or extrahepatic biliary ductal dilation. PANCREAS:? Extensive changes of acute pancreatitis noted with 6 cm pseudocyst involving the neck and proximal body of the pancreas, prominent peripancreatic edema along the anterior pararenal space with extension into the duodenal ligament region. MRCP: 6.6 cm pseudocyst involving the head and uncinate process of the pancreas. ? Peripancreatic edema consistent with acute pancreatitis with involvement of the evert hepatis and hepatoduodenal ligament. ? Lesser sac ascites. ? REPLACED BY [facility] Medical History (Updated 09/15/22 @ 18:[address] Lamberto Franco, DO) Hyperthyroidism Home Medications aspirin 81 mg chewable tablet 81 mg PO DAILY HEART HEALTH 09/15/22 [History Last Taken 09/15/22] atorvastatin 40 mg tablet 40 mg PO DAILY CHOLESTEROL 09/15/22 [History Last Taken 09/14/22] buspirone 5 mg tablet 5 mg PO TID ANXIETY 09/15/22 [History Last Taken 09/14/22] metformin 500 mg tablet 500 mg PO DAILY 09/15/22 [History Last Taken 09/14/22] methimazole 10 mg tablet 10 mg PO 5X/DAY thyroid 09/15/22 [History Last Taken 09/15/22] omeprazole 20 mg capsule,delayed release 20 mg PO DAILY ACID REFLUX 09/15/22 [History Last Taken Unknown] propranolol 40 mg tablet 40 mg PO 4X/DAY HEART 09/15/22 [History Last Taken 09/14/22] sertraline 100 mg tablet 200 mg PO DAILY depression/anxiety 09/15/22 [History Last Taken 09/14/22] trazodone 100 mg tablet 200 mg PO QHS PRN Insomnia 09/15/22 [History Last Taken 09/14/22] Allergy/AdvReac Type Severity Reaction Status Date / Time No Known Allergies Allergy Verified 09/15/22 15:42 Family History (Updated 09/15/22 @ 18:[address] Lamberto Franco DO) Father Graves disease Surgical History (Updated 09/15/22 @ 18:[address] Lamberto Franco DO) Hx of cholecystectomy Social History (Updated 09/15/22 @ 18:[address] Lamberto Franco DO) Smoking Status: Former smoker alcohol intake: former substance use type: does not use ROS ROS Narrative Patient is a poor historian and therefore much of the history is through the emergency room physician as well as the patient's spouse Physical Exam Narrative Physical exam General: Alert, Oriented x3, Cooperative HEENT: Atraumatic, PERRLA, EOMI, Normocephalic Oral: No Gingival or Mucosal Lesions/ Ulcerations Neck: Supple, No JVD, Negative Carotid Bruits Lungs: Air entry diminished in bilateral lung bases. No crepitation/rhonchi Cardiovascular: Regular rate, Regular Rhythm, Normal S1, Normal S2, No murmurs Abdomen: Mild tenderness present around the central abdomen, umbilical area. Bowel Sounds Present, Soft, Non-Distended : No renal angle tenderness. No suprapubic tenderness. Extremities: No edema, Capillary Refill Less than 3 Seconds Skin: No rashes, No breakdown Musculoskeletal: No Tenderness to Palpation of Joints or Extremities Neurological: Cranial nerves II-XII grossly intact, DTR 2+/4 and Symmetrical, Neuro grossly intact Psych/Mental Status: Normal Affect, Appropriate. Medical Records Data Medical Nutrition Assessment Dietitian: Malnutrition Criteria Met Start: 09/16/22 14:13 Freq: Status: Active Protocol: Document 09/16/22 14:13 RIN (Rec: 09/16/22 14:13 [id number]) Nutrition Malnutrition Evidence of Malnutrition Exists Yes Malnutrition (severe): Acute Illness/Injury Evidenced By Suboptimal Energy Intake ( Severe),Weight Loss (Severe), Physical Changes (Severe) Clinical Problem Acute Disease or Injury Related Malnutrition Etiology severe, acute malnutrition related to inadequate energy intake d/t GI dysfunction Signs/Symptoms as evidenced by unintentional 45#/27% wt loss < 1 month; estimated PO intake meeting < 50% of estimated energy needs >5 days; severe muscle wasting /fat loss per physical exam Status Active Problem Recommendation Dietitian Recommendations/Changes recommend advance diet as tolerated to regular/fat restricted; will add 8oz ensure clear w/ meals and d/c ensure compact Lab / Micro Data Result Diagrams: 09/16/22 05:49 09/16/22 05:49 Labs: Laboratory Results - last 24 hr 09/15/22 16:00: Free T4 2.60 H 09/15/22 16:40: Urine RBC 0-5 SEEN, Urine WBC 0-5 SEEN, Ur Squamous Epith Cells 0-5 SEEN, Urine Bacteria 4+, Hyaline Casts 0-5 SEEN, Fine Granular Casts 0-5 SEEN, Urine Mucus 0 SEEN 09/15/22 18:40: Ammonia < 10.0 L 09/15/22 22:35: Troponin I High Sens 11 09/16/22 05:49: WBC 25.4 H, RBC 3.87 L, Hgb 10.9 L, Hct 33.4 L, MCV 86.3, MCH 28.2, MCHC 32.6, RDW Std Deviation 38.8, RDW Coeff of Fili 12.2, Plt Count 255, MPV 11.2, Immature Gran % (Auto) 1.300 H, Neut % (Auto) 88.8 H, Lymph % (Auto) 4.9 L, [place] % (Auto) 4.7, Eos % (Auto) 0.1, Baso % (Auto) 0.2, Absolute Neuts (auto) 22.6 H, Absolute Lymphs (auto) 1.24, Nucleated RBC % 0, Differential Comment SCANNED 09/16/22 05:49: Sodium 124 L, Potassium 4.7, Chloride 95 L, Carbon Dioxide 20.0 L, Anion Gap 9, BUN 41 H, Creatinine 1.08, Estim Creat Clear Calc 59.68, Est GFR (MDRD) Af Amer 91, Est GFR (MDRD) Non-Af 75, BUN/Creatinine Ratio 38.0 H, Glucos e 219 H, Calcium 8.9, Total Bilirubin 0.90, AST 16, ALT 23, Alkaline Phosphatase 103, Total Protein 7.0, Albumin 1.8 L, Globulin 5.2 H, Albumin/Globulin Ratio 0.3 L, TSH < 0.01 L Radiology Impression MRCP 09/15/22 18:34 IMPRESSION: 1. 6.6 cm pseudocyst involving the head and uncinate process of the pancreas. 2. Peripancreatic edema consistent with acute pancreatitis with involvement of the evert hepatis and hepatoduodenal ligament. 3. Lesser sac ascites. 4. Normal biliary tree. Electronically Signed: Jamel Johnston MD at 11:06 EST , Assessment & Plan Assessment/Plan (1) Pancreatitis: QUALIFIERS: Chronicity: acute Pancreatitis type: unspecified pancreatitis type Acute pancreatitis complication: no infection or necrosis Qualified Code(s): K85.90 - Acute pancreatitis without necrosis or infection, unspecified PLAN: Acute pancreatitis unlikely chronic pancreatitis due to the fact that he has pseudocyst. He could be experiencing signs of gastric outlet obstruction secondary to inflammation in the pancreas and enlarged pancreatic head with a pseudocyst. Since he does not drink any alcohol his risk for recurrent pancreatitis would be chronic pancreatitis, weight loss, less likely autoimmune pancreatitis or medications. Recommendations continue IV fluids at current dosage and pain medication at current interval. He can have his diet advanced tomorrow. I would make sure he can tolerate a diet in that he is not having any signs of obstruction. He is experiencing some signs of pancreatitis associated ileus which is to be expected. He may need Reglan therapy on a scheduled basis over the next 7 days along with PPI therapy and protein supplementation. (2) Pancreatic pseudocyst: PLAN: It takes like 6 weeks to form a pseudocyst in the pancreas. So I suspect this is not the first time this happened to him. I cannot see any parenchymal changes consistent with chronic pancreatitis on the current imaging modalities that we have ordered for him. He will need endoscopic ultrasound. After this bout of pancreatitis is over we can check a CA 19-9 and get an endoscopic ultrasound. Charges/Coding Visit Charges Inpatient E&M: 86196 Init Hosp L3
[2022-09-16] MEDS: Methimazole 5 MG Tablet 20 MG PO (21:56)
[2022-09-16] MEDS: Atorvastatin Calcium 40 MG Tablet PO (22:00)
[2022-09-17] VITALS (11 sets, daily range): BP systolic 138–164; BP diastolic 69–85; PULSE 71–86; RESP 16–19; TEMP 36.4–36.7; O2SAT 97–99
[2022-09-17] MEDS: 0.9% Normal Saline 1,000 ML 125 ML IV ×2 (02:25→16:47)
[2022-09-17] MEDS: Acetaminophen 500 MG Tablet 1000 MG PO ×3 (05:03→20:53)
[2022-09-17] MEDS: Methimazole 5 MG Tablet 20 MG PO (05:03)
[2022-09-17] MEDS: Propranolol 40 MG Tablet PO ×3 (05:07→20:53)
[2022-09-17] MEDS: busPIRone 5 MG Tablet PO (09:03)
[2022-09-17] MEDS: Enoxaparin 40 MG/0.4 ML Syringe SC (09:03)
[2022-09-17] MEDS: oxyCODONE 5 MG Tablet PO ×2 (09:03→14:27)
[2022-09-17] MEDS: Sertraline 100 MG Tablet PO (09:03)
[2022-09-17] MEDS: Aspirin 81 MG TAB.CHEW PO (09:03)
[2022-09-17] MEDS: Pantoprazole Sodium 40 MG Tablet PO (09:03)
[2022-09-17] MEDS: Metoclopramide 5 MG TABLET PO ×2 (12:21→16:46)
[2022-09-17] MEDS: methIMAzole 10 MG TABLET 20 MG PO ×2 (15:37→20:52)
--- NOTE | 2022-09-17 16:25 | PN.HOSP_ITS ---
Subjective Subjective Follow-up for nausea vomiting and abdominal pain. Patient on clear liquid. Abdominal pain is much improved, 3 is 2/10 intensity. Objective Data Objective Data Vital Signs: Vital Signs Temp Pulse Resp BP Pulse Ox O2 Del Method 97.7 F L 78 18 164/74 H 97 Room Air 09/17/22 14:25 09/17/22 15:54 09/17/22 14:25 09/17/22 14:25 09/17/22 14:25 09/17/22 14:25 Oxygen Delivery Method Room Air Weight: 122 lb 2.177 oz Body Mass Index (BMI) 22.3 Intake & Output: Intake and Output for Last 24 Hours 09/15/22 09/16/22 09/17/22 23:59 23:59 23:59 Intake Total 1000 / 1000 3200.00 / 3200.00 1240.00 / 1240.00 Output Total 550 / 550 Balance 1000 / 1000 2650.00 / 2650.00 1240.00 / 1240.00 Medical Nutrition Assessment Dietitian: Malnutrition Criteria Met Start: 09/16/22 14:13 Freq: Status: Active Protocol: Document 09/16/22 14:13 AG (Rec: 09/16/22 14:13 AG [id number]) Nutrition Malnutrition Evidence of Malnutrition Exists Yes Malnutrition (severe): Acute Illness/Injury Evidenced By Suboptimal Energy Intake ( Severe),Weight Loss (Severe), Physical Changes (Severe) Clinical Problem Acute Disease or Injury Related Malnutrition Etiology severe, acute malnutrition related to inadequate energy intake d/t GI dysfunction Signs/Symptoms as evidenced by unintentional 45#/27% wt loss < 1 month; estimated PO intake meeting < 50% of estimated energy needs >5 days; severe muscle wasting /fat loss per physical exam Status Active Problem Recommendation Dietitian Recommendations/Changes recommend advance diet as tolerated to regular/fat restricted; will add 8oz ensure clear w/ meals and d/c ensure compact Lab / Micro Data Result Diagrams: 09/16/22 05:49 09/16/22 05:49 Radiography Diagnostic Testing: Radiology Impression Echocardiogram 09/15/22 18:34 Interpretation Summary The estimated ejection fraction is 55-60 %. Over allNormal LV systolic function No previous study to compare Ordering Physician: Lamberto Franco Referring Physician: Cristopher Oliveros Performed By: Duyen Croft, JOVANNA Physical Exam Narrative Physical exam General: Alert, Oriented x3, Cooperative HEENT: Atraumatic, PERRLA, EOMI, Normocephalic Oral: No Gingival or Mucosal Lesions/ Ulcerations Neck: Supple, No JVD, Negative Carotid Bruits Lungs: Air entry diminished in bilateral lung bases. No crepitation/rhonchi Cardiovascular: Regular rate, Regular Rhythm, Normal S1, Normal S2, No murmurs Abdomen: No tenderness. Bowel Sounds Present, Soft, Non-Distended : No renal angle tenderness. No suprapubic tenderness. Extremities: No edema, Capillary Refill Less than 3 Seconds Skin: No rashes, No breakdown Musculoskeletal: No Tenderness to Palpation of Joints or Extremities Neurological: Cranial nerves II-XII grossly intact, DTR 2+/4 and Symmetrical, Neuro grossly intact Psych/Mental Status: Flat affect. Assessment & Plan Assessment/Plan (1) Pancreatitis: QUALIFIERS: Chronicity: acute Pancreatitis type: unspecified pancreatitis type Acute pancreatitis complication: no infection or necrosis Qualified Code(s): K85.90 - Acute pancreatitis without necrosis or infection, unspecified PLAN: 56-year-old is being admitted with abdominal pain and weight loss since August 28, 18 days ago. Patient was admitted between August 28 to in [facility] record pancreatitis was diagnosed with bowel blockage as per wi fe. He was discharged about a week ago with patient continued to have constant abdominal pain and weight loss about 40 pounds since August 28. Patient is status postcholecystectomy and has not had alcohol in 4 years. MRCP shows 6.6 cm pseudocyst involving head and uncinate process of pancreas. Peripancreatic edema consistent with acute pancreatitis involving evert hepatis and hepatoduodenal ligament. Lesser sac ascites. Normal biliary tree. CT abdomen earlier also showed pseudocyst. Liver chemistry at admission shows mildly elevated alkaline phosphatase and TB 1.2 which today became normal. 09/17: Patient has about 6.5 cm pseudocyst which might be pressing gastric outlet/duodenal causing gastric outlet obstruction. Patient on clear liquid diet advanced to full liquid as per tolerated. If patient tolerates diet can be discharged. Leukocytosis improving.As patient is still in mild pain therefore I would not discharge today but continue IV fluid to correct hyponatremia and d ehydration and possible discharge tomorrow. Clinical Impression(s) from Imaging Studies Abdomen/Pelvis CT 09/15/22 15:55 IMPRESSION: Acute pancreatitis with 6 cm pseudocyst involving the neck and body of the pancreas. MRCP 09/15/22 18:34 IMPRESSION: 1. 6.6 cm pseudocyst involving the head and uncinate process of the pancreas. 2. Peripancreatic edema consistent with acute pancreatitis with involvement of the evert hepatis and hepatoduodenal ligament. 3. Lesser sac ascites. 4. Normal biliary tree. (2) Hyperthyroidism: PLAN: Patient had thyroid storm during his last hospitalization at [facility] this month Continue with methimazole TSH less than 0.01. Free T4 2.6 high. I will increase the dose of methimazole (3) Abnormal EKG: PLAN: was told the patient has a cardiomyopathy during the last hospitalization but did not see cardiology. They were waiting on seeing cardiology as outpatient Patient does have ST depressions in the anterior lateral leads. Echo is completed not reported yet (4) Hyperkalemia: PLAN: No EKG changes consistent with hyperkalemia IV fluids and monitor (5) Pancreatic pseudocyst: PLAN: Secondary to pancreatitis Cannot rule out being infected. Very concerning is the patient's white count is extremely high. Patient on IV meropenem. (6) Weight loss: PLAN: Unclear etiology. showed me a picture of him before and patient. And a 40 pound weight loss that he is experienced over the past month appears not to be an exaggeration. He was obese at that time and now is very emaciated. Consult nutrition (7) Encephalopathy: PLAN: Unclear baseline. Ammonia level normal. I think patient is chronically mental health problem rather than acute. PLAN: Plan VTE prophylaxis with enoxaparin Case discussed with the patient's at bedside. Charges/Coding Visit Charges Inpatient E&M: 45346 Subs Hosp L2
--- NOTE | 2022-09-17 16:34 | PN_ITS ---
Subjective Subjective Patient is not eating much and still having some epigastric pain radiating to the back. He denied any fever or chills. He denies any night sweats. He does have some nausea. But it is better than yesterday. Objective Data Objective Data Vital Signs: Vital Signs Temp Pulse Resp BP Pulse Ox O2 Del Method 97.7 F L 78 18 164/74 H 97 Room Air 09/17/22 14:25 09/17/22 15:54 09/17/22 14:25 09/17/22 14:25 09/17/22 14:25 09/17/22 14:25 Oxygen Delivery Method Room Air Weight: 122 lb 2.177 oz Body Mass Index (BMI) 22.3 Intake & Output: Intake and Output for Last 24 Hours 09/15/22 09/16/22 09/17/22 23:59 23:59 23:59 Intake Total 1000 / 1000 3200.00 / 3200.00 1240.00 / 1240.00 Output Total 550 / 550 Balance 1000 / 1000 2650.00 / 2650.00 1240.00 / 1240.00 Medical Nutrition Assessment Dietitian: Malnutrition Criteria Met Start: 09/16/22 14:13 Freq: Status: Active Protocol: Document 09/16/22 14:13 AG (Rec: 09/16/22 14:13 [id number]) Nutrition Malnutrition Evidence of Malnutrition Exists Yes Malnutrition (severe): Acute Illness/Injury Evidenced By Suboptimal Energy Intake ( Severe),Weight Loss (Severe), Physical Changes (Severe) Clinical Problem Acute Disease or Injury Related Malnutrition Etiology severe, acute malnutrition related to inadequate energy intake d/t GI dysfunction Signs/Symptoms as evidenced by unintentional 45#/27% wt loss < 1 month; estimated PO intake meeting < 50% of estimated energy needs >5 days; severe muscle wasting /fat loss per physical exam Status Active Problem Recommendation Dietitian Recommendations/Changes recommend advance diet as tolerated to regular/fat restricted; will add 8oz ensure clear w/ meals and d/c ensure compact Lab / Micro Data Result Diagrams: 09/16/22 05:49 09/16/22 05:49 Radiography Diagnostic Testing: Radiology Impression Echocardiogram 09/15/22 18:34 Interpretation Summary The estimated ejection fraction is 55-60 %. Over allNormal LV systolic function No previous study to compare Ordering Physician: Lamberto Franco Referring Physician: Cristopher Oliveros Performed By: Duyen Croft RDCS Physical Exam Const alert, oriented x3, no apparent distress, healthy appearing and well nourished General Appearance: cooperative, comfortable, well kempt and well developed Orientation / Consciousness: awake and oriented to person HEENT Head and Scalp: normocephalic and atraumatic Face and Sinus: normal facial exam Mouth: oral and palatal mucosa normal Eyes General Eye: normal appearance of both eyes Neck full ROM Lymph Lymphatic: no lymphadenopathy noted Chest inspection of chest normal Resp normal respiratory effort and no use of accessory muscles Cardio regular rate and regular rhythm GI normal to inspection, nondistended, normoactive bowel sounds, soft to palpation, non-tender, non-distended and no masses Auscultation: normoactive bowel sounds Palpation: soft Percussion: normal to percussion Rectal Exam: visual inspection normal and normal sphincter tone no CVA tenderness Back/Spine no CVA tenderness and normal ROM Extremity normal to inspection Peripheral Pulses: Yes pulses 2+ throughout Skin no rashes or lesions noted General Skin Exam: no breakdown, elasticity normal and turgor normal Neuro oriented x3 Motor Exam: strength 5/5 throughout Psych mental status grossly normal Appearance: grossly normal Attitude: calm Activity / Motor Behavior: appropriate eye contact Speech: normal speech Thought Process: normal thought process Thought Content: normal thought content Attention / Concentration: attention grossly intact Memory / Cognition: memory grossly intact Insight: insight good Judgement: judgement good Assessment & Plan Assessment/Plan (1) Weight loss: PLAN: I think his weight loss is likely secondary to a partial outlet obstructi on and possible chronic pancreatitis. He should be on pancreatic enzymes with each meal. (2) Pancreatitis: QUALIFIERS: Chronicity: acute Pancreatitis type: unspecified pancreatitis type Acute pancreatitis complication: no infection or necrosis Qualified Code(s): K85.90 - Acute pancreatitis without necrosis or infection, unspecified PLAN: Acute pancreatitis unlikely chronic pancreatitis due to the fact that he has pseudocyst.? He could be experiencing signs of gastric outlet obstruction secondary to inflammation in the pancreas and enlarged pancreatic head with a pseudocyst.? Since he does not drink any alcohol his risk for recurrent pancreatitis would be chronic pancreatitis, weight loss, less likely autoimmune pancreatitis or medications.? Recommendations continue IV fluids at current dosage and pain medication at current interval.? He can have his diet advanced tomorrow.? I would make sure he can tolerate a diet in that he is not having any signs of obstruction.? He is experiencing some signs of pancreatitis associated ileus which is to be expected.? Continue Reglan therapy on a scheduled basis over the next 7 days along with PPI therapy and protein supplementation. I do not suspect he has pancreatic necrosis at this time however I will repeat the CT scan abdomen pelvis to see if there is any progression of his pancreatitis that would contribute to his white blood cell count being so high. (3) Pancreatic pseudocyst: PLAN: It takes like 6 weeks to form a pseudocyst in the pancreas.? So I suspect this is not the first time this happened to him.? I cannot see any parenchymal changes consistent with chronic pancreatitis on the current imaging modalities that we have ordered for him.? He will need endoscopic ultrasound.? After this bout of pancreatitis is over we can check a CA 19-9 and get an endoscopic ultrasound. Charges/Coding Visit Charges Inpatient E&M: 01175 Subs Hosp L3
--- NOTE | 2022-09-17 16:36 | CT_ITS ---
We are attempting to reach an attending provider to discuss findings. An addendum with communication details will be sent when the communication is complete. STUDY: CT ABDOMEN AND PELVIS WITH CONTRAST REASON FOR EXAM: Male, 56 years old. pancreatitis RADIATION DOSAGE (If Supplied By Facility): CTDIvol = ( 12.82 ) mGy, DLP = ( 496.81 ) mGycm TECHNIQUE: Transaxial images were obtained from the dome of the diaphragm to the symphysis pubis without oral contrast. IV 100mL Isovue-370 was administered. Sagittal and coronal images were reconstructed. Individualized dose optimization techniques were used for this CT. COMPARISON: 09/15/2022 FINDINGS: Small bilateral pleural effusions with bibasilar atelectasis. The visualized portions of the heart are within normal limits. Normal liver. There is non-visualization of the gallbladder, which may be secondary to either contraction or a prior cholecystectomy. Normal spleen. There is diffuse enlargement of the pancreas with chuy-pancreatic edema suggesting acute pancreatitis. No change in the surrounding inflammation extending into the evert hepatis. Also no change in the 6 cm fluid collection of the neck of the pancreas consistent with a pseudocyst or abscess. The remainder the pancreas demonstrates intact contrast enhancement. There are filling defects within the portal vein consistent with partial thrombosis. There is an increase in the ill-defined fluid within the retroperitoneum anterior to the left renal vein consistent with phlegmon. Normal bilateral adrenal glands. Normal right kidney. 5 cm cyst midsection left kidney. Normal visualized stomach. Normal small intestine. Normal colon. There are surgical clips in the region of the appendix consistent with a prior appendectomy. Normal abdominal aorta. Normal inferior vena cava. Normal retroperitoneum. Normal urinary bladder. Small amount of ascites in the pelvis. Normal abdominal wall. Normal osseous structures. CT/Abdomen/Pelvis W IV Cont ONLY IMPRESSION: Continued pancreatitis with a 6 cm pseudocyst or abscess with worsening phlegmon extending into the evert hepatis in the retroperitoneum and development of the small bilateral pleural effusions. Some thrombus noted in the portal vein. Electronically Signed: Jose Ag MD at 18:05 EST ,
--- NOTE | 2022-09-17 16:55 | CASEMGMT ---
MARCK FLORES NOTE: PT/OT notes have been reviewed. Additional therapy recommended and state pt can go home w/help. MARCK FLORES to room to discuss discharge planning. Pt states he is active w/HHC, but he is not sure of agency. He asked MARCK FLORES to call his . Call placed to pt's , Patti. Patti states pt is active w/[facility]. She would like pt to discharge home w/Resumption of service w/[facility] and she declines wanting list of other HHC choices. She states she just picked up a shower chair for pt this week and pt has a walker. She declines having any other discharge planning needs or concerns at this time. Call to Parvez, @ [facility], corporate. She was notified of pt admission to [facility]. She confirms pt is active w/them for SN and PT/OT. JOSE ANTONIO order placed. Green sheet placed on chart w/instructions for HHC JOSE ANTONIO, should pt discharge home over the weekend. Katya TOLLIVER RN, CM
[2022-09-17 17:10] LABS: Absolute Lymphocyte Count 1.35 X10^3/uL (0.83-4.51); Absolute Neutrophil Count 14.2 X10^3/uL (2.0-7.7); Basophil# 0.02 X10^3/uL; Basophil% 0.1 % (0-1); Eosinophil# 0.07 X10^3/uL; Eosinophils% 0.4 % (0-5); Hematocrit 29.7 % (40-54); Lymphocyte # 1.35 X10^3/ul (0.83-4.51); Mean Corp Hgb Conc 33.7 g/dL (32-36); Mean Corpuscular Hgb 29.3 pg (27.0-32.0); Mean Corpuscular Volume 87.1 fL (80-94); Mean Platelet Vol. 10.8 fl (6.2-12.0); Monocyte# 1.03 X10^3/uL; Monocyte% 6.1 % (0-10); NRBC Flagged by Analyzer 0 % (0-5); Neutrophil # 14.24 X10^3/uL (2.7-7.7); Neutrophil % 84.8 % (47-70); Platelet Count 251 K/mm3 (150-450); RBC Distribution Width CV 12.5 % (11.6-14.6); RBC Distribution Width SD 40.2 fl (35.1-43.9); Red Blood Count 3.41 M/mm3 (4.6-6.2); White Blood Count 16.8 K/mm3 (4.4-11.0)
[2022-09-17 17:43] LABS: ALB/GLOB Ratio 0.3 RATIO (0.9-2.4); AST(SGOT) 35 U/L (15-37); Alanine Aminotransfer ALT/SGPT 23 U/L (16-61); Albumin, Serum 1.6 g/dL (3.2-5.0); Alkaline Phosphatase 152 U/L (45-117); Anion Gap 6 (5-15); BUN 29 mg/dL (7-18); BUN/Creat Ratio 34.9 RATIO (10-20); Calcium,Total 8.3 mg/dL (8.5-10.1); Chloride 100 mmol/L (98-107); Creatinine, Serum 0.83 mg/dL (0.70-1.30); EST Glomerular Filtration Rate 102 mL/min (>60); Est Glom Filt Rate - Afr Amer 123 mL/min (>60); Estimated Creatinine Clearance 77.66 ml/min; Globulin 4.6 g/dL (2.2-4.2); Glucose 236 mg/dL (74-106); Potassium 4.3 mmol/L (3.5-5.1); Protein, Total 6.2 g/dL (6.4-8.2); Sodium Level 129 mmol/L (136-145)
[2022-09-17] MEDS: Atorvastatin Calcium 40 MG Tablet PO (20:54)
[2022-09-18] VITALS (14 sets, daily range): BP systolic 116–151; BP diastolic 70–100; PULSE 70–87; RESP 18; TEMP 36.4–36.7; O2SAT 97–100
[2022-09-18] MEDS: 0.9% Normal Saline 1,000 ML 125 ML IV (03:48)
[2022-09-18] MEDS: Acetaminophen 500 MG Tablet 1000 MG PO ×3 (05:16→21:00)
[2022-09-18] MEDS: methIMAzole 10 MG TABLET 20 MG PO ×3 (05:27→21:00)
[2022-09-18] MEDS: Propranolol 40 MG Tablet PO ×3 (05:27→21:01)
[2022-09-18 05:41] LABS: Absolute Lymphocyte Count 1.15 X10^3/uL (0.83-4.51); Absolute Neutrophil Count 10.7 X10^3/uL (2.0-7.7); Basophil# 0.01 X10^3/uL; Basophil% 0.1 % (0-1); Eosinophil# 0.04 X10^3/uL; Eosinophils% 0.3 % (0-5); Hematocrit 31.9 % (40-54); Hemoglobin 9.7 g/dL (13.0-16.5); Lymphocyte # 1.15 X10^3/ul (0.83-4.51); Lymphocyte % 8.9 % (19-41); Mean Corp Hgb Conc 30.4 g/dL (32-36); Mean Corpuscular Volume 91.9 fL (80-94); Monocyte# 0.84 X10^3/uL; Monocyte% 6.5 % (0-10); NRBC Flagged by Analyzer 0 % (0-5); Neutrophil % 83.1 % (47-70); Platelet Count 241 K/mm3 (150-450); RBC Distribution Width CV 12.7 % (11.6-14.6); RBC Distribution Width SD 42.1 fl (35.1-43.9); Red Blood Count 3.47 M/mm3 (4.6-6.2); White Blood Count 12.9 K/mm3 (4.4-11.0)
[2022-09-18 06:11] LABS: ALB/GLOB Ratio 0.3 RATIO (0.9-2.4); AST(SGOT) 32 U/L (15-37); Alanine Aminotransfer ALT/SGPT 22 U/L (16-61); Albumin, Serum 1.4 g/dL (3.2-5.0); Alkaline Phosphatase 147 U/L (45-117); Anion Gap 7 (5-15); BUN 23 mg/dL (7-18); BUN/Creat Ratio 29.5 RATIO (10-20); Calcium,Total 8.3 mg/dL (8.5-10.1); Chloride 100 mmol/L (98-107); Creatinine, Serum 0.78 mg/dL (0.70-1.30); EST Glomerular Filtration Rate 110 mL/min (>60); Est Glom Filt Rate - Afr Amer 133 mL/min (>60); Estimated Creatinine Clearance 82.64 ml/min; Globulin 4.7 g/dL (2.2-4.2); Glucose 203 mg/dL (74-106); Potassium 4.9 mmol/L (3.5-5.1); Protein, Total 6.1 g/dL (6.4-8.2); Sodium Level 130 mmol/L (136-145)
[2022-09-18] MEDS: Metoclopramide 5 MG TABLET PO ×3 (06:22→16:12)
[2022-09-18] MEDS: Sertraline 100 MG Tablet PO (09:26)
[2022-09-18] MEDS: Pantoprazole Sodium 40 MG Tablet PO (09:26)
[2022-09-18] MEDS: Aspirin 81 MG TAB.CHEW PO (09:26)
[2022-09-18] MEDS: Enoxaparin 40 MG/0.4 ML Syringe SC (09:26)
[2022-09-18 13:41] LABS: Partial Thromboplast Time 44.4 Seconds (24.1-36.2)
[2022-09-18] MEDS: oxyCODONE 5 MG Tablet PO ×2 (13:54→18:05)
[2022-09-18] MEDS: HEPARIN/D5w 25,000 UNITS 25,000 UNITS/250 ML IV.SOLN. 8 UNITS CONT INF (13:56)
[2022-09-18] MEDS: Heparin Injection (Vial) 5,000 UNIT/ML VIAL 4000 UNIT IV (14:07)
--- NOTE | 2022-09-18 16:46 | PN.HOSP_ITS ---
Subjective Subjective Reports feeling possibly slightly better today, tolerating food somewhat better. CT yesterday did show extension of phlegmon and thrombosis and portal vein. Denied other complaints at this time Objective Data Objective Data Vital Signs: Vital Signs Temp Pulse Resp BP Pulse Ox O2 Del Method 97.9 F 70 18 125/70 H 99 Room Air 09/18/22 16:05 09/18/22 16:05 09/18/22 16:05 09/18/22 16:05 09/18/22 16:05 09/18/22 16:05 Oxygen Delivery Method Room Air Weight: 55.4 kg Body Mass Index (BMI) 22.3 Intake & Output: Intake and Output for Last 24 Hours 09/16/22 09/17/22 09/18/22 23:59 23:59 23:59 Intake Total 3200.00 / 3200.00 2142.08 / 2142.08 1477.92 / 1477.92 Output Total 550 / 550 325 / 325 Balance 2650.00 / 2650.00 2142.08 / 2142.08 1152.92 / 1152.92 Medical Nutrition Assessment Dietitian: Malnutrition Criteria Met Start: 09/16/22 14:13 Freq: Status: Active Protocol: Document 09/16/22 14:13 AG (Rec: 09/16/22 14:13 AG [id number]) Nutrition Malnutrition Evidence of Malnutrition Exists Yes Malnutrition (severe): Acute Illness/Injury Evidenced By Suboptimal Energy Intake ( Severe),Weight Loss (Severe), Physical Changes (Severe) Clinical Problem Acute Disease or Injury Related Malnutrition Etiology severe, acute malnutrition related to inadequate energy intake d/t GI dysfunction Signs/Symptoms as evidenced by unintentional 45#/27% wt loss < 1 month; estimated PO intake meeting < 50% of estimated energy needs >5 days; severe muscle wasting /fat loss per physical exam Status Active Problem Recommendation Dietitian Recommendations/Changes recommend advance diet as tolerated to regular/fat restricted; will add 8oz ensure clear w/ meals and d/c ensure compact Lab / Micro Data Result Diagrams: 09/18/22 05:00 09/18/22 05:00 Labs: Laboratory Results - last 24 hr 09/17/22 16:40: WBC 16.8 H, RBC 3.41 L, Hgb 10.0 L, Hct 29.7 L, MCV 87.1, MCH 29.3, MCHC 33.7, RDW Std Deviation 40.2, RDW Coeff of Fili 12.5, Plt Count 251, MPV 10.8, Immature Gran % (Auto) 0.600, Neut % (Auto) 84.8 H, Lymph % (Auto) 8.0 L, [place] % (Auto) 6.1, Eos % (Auto) 0.4, Baso % (Auto) 0.1, Absolute Neuts (auto) 14.2 H, Absolute Lymphs (auto) 1.35, Nucleated RBC % 0 09/17/22 16:40: Sodium 129 L, Potassium 4.3, Chloride 100, Carbon Dioxide 23.0, Anion Gap 6, BUN 29 H, Creatinine 0.83, Estim Creat Clear Calc 77.66, Est GFR (MDRD) Af Amer 123, Est GFR (MDRD) Non-Af 102, BUN/Creatinine Ratio 34.9 H, Glucose 236 H, Calcium 8.3 L, Total Bilirubin 0.70, AST 35, ALT 23, Alkaline Phosphatase 152 H, Total Protein 6.2 L, Albumin 1.6 L, Globulin 4.6 H, Albumin/Globulin Ratio 0.3 L 09/18/22 05:00: WBC 12.9 H, RBC 3.47 L, Hgb 9.7 L, Hct 31.9 L, MCV 91.9 D, MCH 28.0, MCHC 30.4 L D, RDW Std Deviation 42.1, RDW Coeff of Fili 12.7, Plt Count 241, MPV 11.0, Immature Gran % (Auto) 1.100 H, Neut % (Auto) 83.1 H, Lymph % (Auto) 8.9 L, [place] % (Auto) 6.5, Eos % (Auto) 0.3, Baso % (Auto) 0.1, Absolute Neuts (auto) 10.7 H, Absolute Lymphs (auto) 1.15, Nucleated RBC % 0 09/18/22 05:00: Sodium 130 L, Potassium 4.9, Chloride 100, Carbon Dioxide 23.0, Anion Gap 7, BUN 23 H, Creatinine 0.78, Estim Creat Clear Calc 82.64, Est GFR (MDRD) Af Amer 133, Est GFR (MDRD) Non-Af 110, BUN/Creatinine Ratio 29.5 H, Glucose 203 H, Calcium 8.3 L, Total Bilirubin 0.70, AST 32, ALT 22, Alkaline Phosphatase 147 H, Total Protein 6.1 L, Albumin 1.4 L, Globulin 4.7 H, Albumin/Globulin Ratio 0.3 L 09/18/22 13:21: APTT 44.4 H Micro: Microbiology 09/15/22 21:55 Blood Culture (Wb) - Right Forearm Blood Culture - Preliminary No growth in 48 hours. 09/15/22 21:44 Blood Culture (Wb) - Anticubital Right Blood Culture - Preliminary No growth in 48 hours. Radiography Diagnostic Testing: Radiology Impression Abdomen/Pelvis CT 09/17/22 16:36 IMPRESSION: Continued pancreatitis with a 6 cm pseudocyst or abscess with worsening phlegmon extending into the evert hepatis in the retroperitoneum and development of the small bilateral pleural effusions. Some thrombus noted in the portal vein. Electronically Signed: Jose Ag MD at 18:05 EST , ADDENDUM: 09/17/22 1830 IMPRESSION: Continued pancreatitis with a 6 cm pseudocyst or abscess with worsening phlegmon extending into the evert hepatis in the retroperitoneum and development of the small bilateral pleural effusions. Some thrombus noted in the portal vein. N.B. : The above Results were Read Back by Jose Ag MD to Lorrie Agosto MD, and understanding confirmed on 09/17/2022 18:23:29 (ET). Electronically Signed: Jose Ag MD at 18:05 EST , Physical Exam Const Constitutional Narrative: Awake, answers questions mostly appropriately but still seems somewhat confused HEENT normocephalic and head/scalp atraumatic Eyes Eyes Narrative: EOM grossly intact Neck supple Resp normal respiratory effort and clear to auscultation bilaterally Cardio regular rate and regular rhythm GI soft to palpation GI Narrative: Is somewhat tender on palpation but no rebound, guarding, rigidity Extremity Extremity Narrative: No edema appreciated Neuro moves all extremities Neuro Narrative: No overt focal deficits appreciated Psych Psych Narrative: Cooperative Assessment & Plan Assessment/Plan (1) Pancreatitis: QUALIFIERS: Acute pancreatitis complication: no infection or necrosis Chronicity: acute Pancreatitis type: unspecified pancreatitis type Qualified Code(s): K85.90 - Acute pancreatitis without necrosis or infection, unspecified (2) Hyperthyroidism: (3) Abnormal EKG: (4) Hyperkalemia: (5) Pancreatic pseudocyst: (6) Weight loss: (7) Encephalopathy: PLAN: Plan #Acute pancreatitis MRCP showed 6.6 cm pseudocyst involving head and uncinate process of the pancreas and there was pancreatic edema consistent with acute pancreatitis involving the evert hepatis and hepatoduodenal ligament Pain is improving slowly tolerating p.o. GI following and obtained repeat CT which read as the 6 cm pseudocyst versus abscess with worsening phlegmon extending into the evert hepatis and retrop eritoneum and a portal vein thrombus. Discussed with GI, he is on Merrem On heparin drip, short acting agent given to monitor the risk for hemorrhagic transformation Ensure clear 3 times daily Pain control #Hypothyroidism Had recent hospitalization at [facility] for thyroid storm Continue methimazole, this dosage was increased on admission due to TSH less than 0.01 and free T4 of 2.6 #Abnormal EKG Planning on seeing cardiology as an outpatient Echo obtained and EF 55 to 60% with overall normal LV systolic function #DVT ppx: On heparin drip Elizabeth Roger MD Charges/Coding Visit Charges Inpatient E&M: 40433 Subs Hosp L2
[2022-09-18] MEDS: Ensure Clear 120 ML Liquid PO (17:23)
[2022-09-18] MEDS: 0.9% Normal Saline 1,000 ML 75 ML IV (18:36)
[2022-09-18 20:44] LABS: Partial Thromboplast Time 56.1 Seconds (24.1-36.2)
[2022-09-18] MEDS: MELATONIN 10 MG TABLET PO (21:00)
[2022-09-18] MEDS: Atorvastatin Calcium 40 MG Tablet PO (21:01)
[2022-09-18] MEDS: traZODone 100 MG Tablet 200 MG PO (21:01)
[2022-09-18] MEDS: busPIRone 5 MG Tablet PO (21:02)
[2022-09-19] VITALS (14 sets, daily range): BP systolic 99–132; BP diastolic 55–101; PULSE 64–87; RESP 18; TEMP 36.5–36.7; O2SAT 94–100
[2022-09-19 02:04] LABS: Absolute Lymphocyte Count 0.88 X10^3/uL (0.83-4.51); Absolute Neutrophil Count 7.5 X10^3/uL (2.0-7.7); Basophil# 0.02 X10^3/uL; Basophil% 0.2 % (0-1); Eosinophil# 0.02 X10^3/uL; Eosinophils% 0.2 % (0-5); Hematocrit 28.5 % (40-54); Hemoglobin 9.1 g/dL (13.0-16.5); Lymphocyte # 0.88 X10^3/ul (0.83-4.51); Lymphocyte % 9.6 % (19-41); Mean Corp Hgb Conc 31.9 g/dL (32-36); Mean Corpuscular Hgb 28.3 pg (27.0-32.0); Mean Corpuscular Volume 88.5 fL (80-94); Mean Platelet Vol. 10.7 fl (6.2-12.0); Monocyte% 6.6 % (0-10); NRBC Flagged by Analyzer 0 % (0-5); Neutrophil # 7.51 X10^3/uL (2.7-7.7); Neutrophil % 82.2 % (47-70); Platelet Count 217 K/mm3 (150-450); RBC Distribution Width CV 12.6 % (11.6-14.6); RBC Distribution Width SD 40.9 fl (35.1-43.9); Red Blood Count 3.22 M/mm3 (4.6-6.2); White Blood Count 9.1 K/mm3 (4.4-11.0)
[2022-09-19 02:20] LABS: Partial Thromboplast Time 55.2 Seconds (24.1-36.2)
[2022-09-19 02:28] LABS: ALB/GLOB Ratio 0.3 RATIO (0.9-2.4); AST(SGOT) 38 U/L (15-37); Alanine Aminotransfer ALT/SGPT 25 U/L (16-61); Albumin, Serum 1.4 g/dL (3.2-5.0); Alkaline Phosphatase 189 U/L (45-117); Anion Gap 7 (5-15); BUN 22 mg/dL (7-18); BUN/Creat Ratio 26.6 RATIO (10-20); Calcium,Total 7.7 mg/dL (8.5-10.1); Chloride 102 mmol/L (98-107); Creatinine, Serum 0.83 mg/dL (0.70-1.30); EST Glomerular Filtration Rate 102 mL/min (>60); Est Glom Filt Rate - Afr Amer 124 mL/min (>60); Estimated Creatinine Clearance 77.66 ml/min; Globulin 4.2 g/dL (2.2-4.2); Glucose 222 mg/dL (74-106); Potassium 4.3 mmol/L (3.5-5.1); Protein, Total 5.6 g/dL (6.4-8.2); Sodium Level 131 mmol/L (136-145)
[2022-09-19] MEDS: Acetaminophen 500 MG Tablet 1000 MG PO ×2 (05:16→13:56)
[2022-09-19] MEDS: methIMAzole 10 MG TABLET 20 MG PO ×3 (05:16→22:28)
[2022-09-19] MEDS: Propranolol 40 MG Tablet PO ×3 (05:16→22:28)
[2022-09-19] MEDS: Metoclopramide 5 MG TABLET PO ×3 (06:05→16:08)
[2022-09-19 08:56] LABS: Partial Thromboplast Time 67.1 Seconds (24.1-36.2)
[2022-09-19] MEDS: Ensure Clear 120 ML Liquid PO ×2 (09:43→11:24)
[2022-09-19] MEDS: Pantoprazole Sodium 40 MG Tablet PO (09:44)
[2022-09-19] MEDS: Aspirin 81 MG TAB.CHEW PO (09:44)
[2022-09-19] MEDS: Sertraline 100 MG Tablet PO (09:44)
[2022-09-19] MEDS: 0.9% Normal Saline 1,000 ML 75 ML IV (13:52)
[2022-09-19] MEDS: oxyCODONE 5 MG Tablet PO (13:56)
[2022-09-19 15:06] LABS: Partial Thromboplast Time 66.8 Seconds (24.1-36.2)
--- NOTE | 2022-09-19 16:17 | PN.HOSP_ITS ---
Subjective Subjective Today he was able to tell me he was 2021 and that he was in the hospital, slightly better than yesterday though still tired. Some diffuse abdominal tenderness which he reports is unchanged from yesterday. Did not voice other complaints this morning Objective Data Objective Data Vital Signs: Vital Signs Temp Pulse Resp BP Pulse Ox O2 Del Method 97.9 F 64 18 107/73 95 Room Air 09/19/22 16:15 09/19/22 16:15 09/19/22 16:15 09/19/22 16:15 09/19/22 16:15 09/19/22 16:15 Oxygen Delivery Method Room Air Weight: 55.4 kg Body Mass Index (BMI) 22.3 Intake & Output: Intake and Output for Last 24 Hours 09/17/22 09/18/22 09/19/22 23:59 23:59 23:59 Intake Total 2142.08 / 2142.08 3070.34 / 3070.34 1342.13 / 1342.13 Output Total 525 / 625 325 / 325 Balance 2142.08 / 2142.08 2545.34 / 2445.34 1017.13 / 1017.13 Medical Nutrition Assessment Dietitian: Malnutrition Criteria Met Start: 09/16/22 14:13 Freq: Status: Active Protocol: Document 09/16/22 14:13 AG (Rec: 09/16/22 14:13 AG [id number]) Nutrition Malnutrition Evidence of Malnutrition Exists Yes Malnutrition (severe): Acute Illness/Injury Evidenced By Suboptimal Energy Intake ( Severe),Weight Loss (Severe), Physical Changes (Severe) Clinical Problem Acute Disease or Injury Related Malnutrition Etiology severe, acute malnutrition related to inadequate energy intake d/t GI dysfunction Signs/Symptoms as evidenced by unintentional 45#/27% wt loss < 1 month; estimated PO intake meeting < 50% of estimated energy needs >5 days; severe muscle wasting /fat loss per physical exam Status Active Problem Recommendation Dietitian Recommendations/Changes recommend advance diet as tolerated to regular/fat restricted; will add 8oz ensure clear w/ meals and d/c ensure compact Lab / Micro Data Result Diagrams: 09/19/22 02:00 09/19/22 02:00 Labs: Laboratory Results - last 24 hr 09/18/22 20:10: APTT 56.1 H 09/19/22 02:00: WBC 9.1, RBC 3.22 L, Hgb 9.1 L, Hct 28.5 L, MCV 88.5, MCH 28.3, MCHC 31.9 L, RDW Std Deviation 40.9, RDW Coeff of Fili 12.6, Plt Count 217, MPV 10.7, Immature Gran % (Auto) 1.200 H, Neut % (Auto) 82.2 H, Lymph % (Auto) 9.6 L , [place] % (Auto) 6.6, Eos % (Auto) 0.2, Baso % (Auto) 0.2, Absolute Neuts (auto) 7.5, Absolute Lymphs (auto) 0.88, Nucleated RBC % 0 09/19/22 02:00: Sodium 131 L, Potassium 4.3, Chloride 102, Carbon Dioxide 22.0, Anion Gap 7, BUN 22 H, Creatinine 0.83, Estim Creat Clear Calc 77.66, Est GFR (MDRD) Af Amer 124, Est GFR (MDRD) Non-Af 102, BUN/Creatinine Ratio 26.6 H, Glucose 222 H, Calcium 7.7 L, Total Bilirubin 0.60, AST 38 H, ALT 25, Alkaline Phosphatase 189 H, Total Protein 5.6 L, Albumin 1.4 L, Globulin 4.2, Albumin/Globulin Ratio 0.3 L 09/19/22 02:00: Ammonia 19.0 09/19/22 02:00: APTT 55.2 H 09/19/22 08:21: APTT 67.1 H 09/19/22 14:45: APTT 66.8 H Micro: Microbiology 09/15/22 21:55 Blood Culture (Wb) - Right Forearm Blood Culture - Preliminary No growth in 48 hours. 09/15/22 21:44 Blood Culture (Wb) - Anticubital Right Blood Culture - Preliminary No growth in 48 hours. Physical Exam Const Constitutional Narrative: Awake, slightly tired, unable to answer that it was 2021 and he was in the hospital HEENT normocephalic and head/scalp atraumatic Eyes Eyes Narrative: EOM grossly intact Neck supple Resp normal respiratory effort and clear to auscultation bilaterally Cardio regular rate and regular rhythm GI soft to palpation GI Narrative: Is somewhat tender diffusely on palpation but no rebound, guarding, rigidity Extremity Extremity Narrative: No edema appreciated Neuro moves all extremities Neuro Narrative: No overt focal deficits appreciated Psych Psych Narrative: Cooperative Assessment & Plan Assessment/Plan (1) Pancreatitis: QUALIFIERS: Chronicity: acute Pancreatitis type: unspecified pancreatitis type Acute pancreatitis complication: no infection or necrosis Qualified Code(s): K85.90 - Acute pancreatitis without necrosis or infection, unspecified (2) Hyperthyroidism: (3) Abnormal EKG: (4) Hyperkalemia: (5) Pancreatic pseudocyst: (6) Weight loss: (7) Encephalopathy: PLAN: Plan #Acute pancreatitis MRCP showed 6.6 cm pseudocyst involving head and uncinate process of the pancreas and there was pancreatic edema consistent with acute pancreatitis involving the evert hepatis and hepatoduodenal ligament Pain is improving slowly tolerating p.o. GI following and obtained repeat CT which read as the 6 cm pseudocyst versus abscess with worsening phlegmon extending into the evert hepatis and retroperitoneum and a portal vein thrombus. Discussed with GI, he is on Merrem On heparin drip, short acting agent given to monitor the risk for hemorrhagic transformation Ensure clear 3 times daily Pain control 09/19: Still some tenderness, on fluids and Merrem. White blood cell count has normalized. Has had 2 contrasted [address]s and want to avoid overuse but pending progress/clinical status tomorrow we will consider repeating CT with contrast for reevaluation #Portal vein thrombosis On heparin drip, discussed with GI and they recommended short acting agent for 72 hours to monitor for hemorrhagic conversion prior to long-acting agent #Change in mental status reports he is not close to baseline, seems to be waxing and waning Ammonia is not elevated, only 19 at this time Was hyponatremic on admission and this has gradually been improving Suspect there could be hypoactive delirium Melatonin nightly, will try nonpharmacologic management first but can consider small dose of Abilify if compatible with other medications if he remains unchanged We will also decrease bedtime trazodone dose in the event that this is co ntributing ESR and CRP also ordered #Hypothyroidism Had recent hospitalization at [facility] for thyroid storm Continue methimazole, this dosage was increased on admission due to TSH less than 0.01 and free T4 of 2.6 #Abnormal EKG Planning on seeing cardiology as an outpatient Echo obtained and EF 55 to 60% with overall normal LV systolic function #DVT ppx: On heparin drip Elizabeth Roger MD Charges/Coding Visit Charges Inpatient E&M: 15917 Subs Hosp L2
--- NOTE | 2022-09-19 17:24 | PN_ITS ---
Subjective Subjective Patient complains of a little bit of abdominal pain. He has some mild nausea. He denies any chest pain or shortness of breath. Objective Data Objective Data Vital Signs: Vital Signs Temp Pulse Resp BP Pulse Ox O2 Del Method 97.9 F 64 18 107/73 95 Room Air 09/19/22 16:15 09/19/22 16:15 09/19/22 16:15 09/19/22 16:15 09/19/22 16:15 09/19/22 16:15 Oxygen Delivery Method Room Air Weight: 122 lb 2.177 oz Body Mass Index (BMI) 22.3 Intake & Output: Intake and Output for Last 24 Hours 09/17/22 09/18/22 09/19/22 23:59 23:59 23:59 Intake Total 2142.08 / 2142.08 3070.34 / 3070.34 1342.13 / 1342.13 Output Total 525 / 625 325 / 325 Balance 2142.08 / 2142.08 2545.34 / 2445.34 1017.13 / 1017.13 Medical Nutrition Assessment Dietitian: Malnutrition Criteria Met Start: 09/16/22 14:13 Freq: Status: Active Protocol: Document 09/16/22 14:13 AG (Rec: 09/16/22 14:13 AG [id number]) Nutrition Malnutrition Evidence of Malnutrition Exists Yes Malnutrition (severe): Acute Illness/Injury Evidenced By Suboptimal Energy Intake ( Severe),Weight Loss (Severe), Physical Changes (Severe) Clinical Problem Acute Disease or Injury Related Malnutrition Etiology severe, acute malnutrition related to inadequate energy intake d/t GI dysfunction Signs/Symptoms as evidenced by unintentional 45#/27% wt loss < 1 month; estimated PO intake meeting < 50% of estimated energy needs >5 days; severe muscle wasting /fat loss per physical exam Status Active Problem Recommendation Dietitian Recommendations/Changes recommend advance diet as tolerated to regular/fat restricted; will add 8oz ensure clear w/ meals and d/c ensure compact Lab / Micro Data Result Diagrams: 09/19/22 02:00 09/19/22 02:00 Labs: Laboratory Results - last 24 hr 09/18/22 20:10: APTT 56.1 H 09/19/22 02:00: WBC 9.1, RBC 3.22 L, Hgb 9.1 L, Hct 28.5 L, MCV 88.5, MCH 28.3, MCHC 31.9 L, RDW Std Deviation 40.9, RDW Coeff of Fili 12.6, Plt Count 217, MPV 10.7, Immature Gran % (Auto) 1.200 H, Neut % (Auto) 82.2 H, Lymph % (Auto) 9.6 L , [place] % (Auto) 6.6, Eos % (Auto) 0.2, Baso % (Auto) 0.2, Absolute Neuts (auto) 7.5, Absolute Lymphs (auto) 0.88, Nucleated RBC % 0 09/19/22 02:00: Sodium 131 L, Potassium 4.3, Chloride 102, Carbon Dioxide 22.0, Anion Gap 7, BUN 22 H, Creatinine 0.83, Estim Creat Clear Calc 77.66, Est GFR (MDRD) Af Amer 124, Est GFR (MDRD) Non-Af 102, BUN/Creatinine Ratio 26.6 H, Glucose 222 H, Calcium 7.7 L, Total Bilirubin 0.60, AST 38 H, ALT 25, Alkaline Phosphatase 189 H, Total Protein 5.6 L, Albumin 1.4 L, Globulin 4.2, Albumin/Globulin Ratio 0.3 L 09/19/22 02:00: Ammonia 19.0 09/19/22 02:00: APTT 55.2 H 09/19/22 08:21: APTT 67.1 H 09/19/22 14:45: APTT 66.8 H Micro: Microbiology 09/15/22 21:55 Blood Culture (Wb) - Right Forearm Blood Culture - Preliminary No growth in 48 hours. 09/15/22 21:44 Blood Culture (Wb) - Anticubital Right Blood Culture - Preliminary No growth in 48 hours. Physical Exam HEENT normocephalic and head/scalp atraumatic Eyes Eyes Narrative: EOM grossly intact Neck supple Resp normal respiratory effort and clear to auscultation bilaterally Cardio regular rate and regular rhythm GI soft to palpation GI Narrative: Tender in the epigastric region and left upper quadrant Extremity Extremity Narrative: No edema appreciated Neuro moves all extremities Neuro Narrative: No overt focal deficits appreciated Psych Psych Narrative: Cooperative Assessment & Plan Assessment/Plan (1) Pancreatitis: QUALIFIERS: Chronicity: acute Pancreatitis type: unspecified pancreatitis type Acute pancreatitis complication: no infection or necrosis Qualified Code(s): K85.90 - Acute pancreatitis without necrosis or infection, unspecified PLAN: Severe acute and possibly recurrent pancreatitis. Possible chronic pancreatitis. Recommend repeat CT scan abdomen pelvis tomorrow on 07/21/2022. Agree with checking ESR and CRP. Would also add LDH, lactate, INR, PT and PTT. Would encourage pancreatic enzymes. Continue scheduled Reglan therapy as he likely has a mild paralytic ileus with pancreatitis induced gastroparesis. Charges/Coding Visit Charges Inpatient E&M: 30256 Subs Hosp L2
[2022-09-19] MEDS: HEPARIN/D5w 25,000 UNITS 25,000 UNITS/250 ML IV.SOLN. 8 UNITS CONT INF (21:19)
[2022-09-19] MEDS: Atorvastatin Calcium 40 MG Tablet PO (22:28)
[2022-09-19] MEDS: Acetaminophen 500 MG Tablet PO (22:28)
[2022-09-19] MEDS: MELATONIN 10 MG TABLET PO (22:28)
[2022-09-20] VITALS (9 sets, daily range): BP systolic 100–126; BP diastolic 60–73; PULSE 68–83; RESP 14–18; TEMP 36.2–36.6; O2SAT 98–100
[2022-09-20] MEDS: methIMAzole 10 MG TABLET 20 MG PO ×3 (05:31→23:04)
[2022-09-20] MEDS: Propranolol 40 MG Tablet PO ×3 (05:31→23:05)
[2022-09-20] MEDS: Acetaminophen 500 MG Tablet PO ×3 (05:35→23:04)
[2022-09-20] MEDS: Metoclopramide 5 MG TABLET PO ×3 (06:30→16:05)
[2022-09-20 06:53] LABS: Erythrocyte Sedimentation Rate 65 mm/hr (0-20)
[2022-09-20 06:54] LABS: Absolute Lymphocyte Count 0.98 X10^3/uL (0.83-4.51); Absolute Neutrophil Count 4.6 X10^3/uL (2.0-7.7); Basophil# 0.02 X10^3/uL; Basophil% 0.3 % (0-1); Eosinophil# 0.04 X10^3/uL; Eosinophils% 0.6 % (0-5); Hematocrit 30.5 % (40-54); Hemoglobin 9.3 g/dL (13.0-16.5); Lymphocyte # 0.98 X10^3/ul (0.83-4.51); Lymphocyte % 15.8 % (19-41); Mean Corp Hgb Conc 30.5 g/dL (32-36); Mean Corpuscular Hgb 27.8 pg (27.0-32.0); Mean Platelet Vol. 10.8 fl (6.2-12.0); Monocyte# 0.53 X10^3/uL; Monocyte% 8.5 % (0-10); NRBC Flagged by Analyzer 0 % (0-5); Neutrophil # 4.57 X10^3/uL (2.7-7.7); Neutrophil % 73.7 % (47-70); POSITIVE MORPHOLOGY YES; Platelet Count 199 K/mm3 (150-450); RBC Distribution Width CV 12.7 % (11.6-14.6); RBC Distribution Width SD 41.9 fl (35.1-43.9); Red Blood Count 3.35 M/mm3 (4.6-6.2); White Blood Count 6.2 K/mm3 (4.4-11.0)
[2022-09-20 06:57] LABS: Differential Indicated SCAN CRITERIA MET
[2022-09-20 07:24] LABS: ALB/GLOB Ratio 0.3 RATIO (0.9-2.4); AST(SGOT) 37 U/L (15-37); Alanine Aminotransfer ALT/SGPT 27 U/L (16-61); Albumin, Serum 1.3 g/dL (3.2-5.0); Alkaline Phosphatase 191 U/L (45-117); Anion Gap 9 (5-15); BUN 17 mg/dL (7-18); Calcium,Total 7.7 mg/dL (8.5-10.1); Chloride 101 mmol/L (98-107); Creatinine, Serum 0.65 mg/dL (0.70-1.30); EST Glomerular Filtration Rate 134 mL/min (>60); Est Glom Filt Rate - Afr Amer 162 mL/min (>60); Estimated Creatinine Clearance 99.17 ml/min; Ferritin 1166 ng/mL (26-388); Globulin 4.5 g/dL (2.2-4.2); Glucose 204 mg/dL (74-106); Iron 20 ug/dL (65-175); Iron Binding Capacity,Total 246 ug/dL (250-450); Potassium 3.7 mmol/L (3.5-5.1); Protein, Total 5.8 g/dL (6.4-8.2); Sodium Level 130 mmol/L (136-145); T4 Free Direct 1.43 ng/dL (0.76-1.46); Thyroid Stim Hormone (TSH) < 0.01 uIU/mL (0.358-3.74)
--- NOTE | 2022-09-20 07:56 | CT_ITS ---
INDICATION: portal thrombosis, worsening pancreatitis EXAMINATION: CTA Abdomen and Pelvis WO/W Contrast Injection TECHNIQUE: Helically acquired images were obtained of the abdomen and pelvis after IV contrast. A radiation dose optimization technique was used for this scan. IV Contrast dosage and agent: 100 CC ISOVUE 370 Oral contrast: None. COMPARISON: 09/17/2022 FINDINGS: Visualized lung bases: Increased now moderate right and trace left pleural effusions. Liver: No change from prior. Gallbladder: Not visualized. Spleen: Enlarged measuring 14 cm in craniocaudal dimension. Pancreas: Redemonstration of enlarged and inflamed pancreas with multiple areas of necrosis. There are multiple acute necrotic collections, one of which is within the head/neck of the pancreas and is stable in size. There are several peripancreatic acute necrotic collections throughout the retroperitoneum as well as the right pararenal space which have slightly increased in size when compared to prior 3 days ago. For example, a 2.2 x 3.3 cm collection in the right lower abdominal quadrant (image 120, series 2), previously measuring 1.6 x 2.7 cm. Adrenal Glands: No change from prior. Kidneys: No change from prior. Vasculature: Due to inadequate opacification of the portal venous system, cannot assess for portal venous thrombosis. Moderate aortoiliac atherosclerotic disease. GI Tract: Scattered diverticula throughout the colon without evidence of inflammation. Lymphadenopathy: Extensive retroperitoneal lymphadenopathy. Peritoneum: See above. Bladder: Unremarkable Reproductive organs: Unremarkable Bones/Soft tissues: Mild scattered degenerative changes of the visualized spine. CT/CT ANGIO ABD&PEL W/O&W/DYE IMPRESSION: Due to inadequate opacification of the portal venous system, cannot assess for portal venous thrombosis. Redemonstration of acute necrotic pancreatitis with increase in size of peripancreatic acute necrotic collections extending inferiorly through the retroperitoneum and involving the right pararenal space and evert hepatis. Increased now moderate right and trace left pleural effusions. Mild splenomegaly. No other change from prior. Electronically Signed: Gee Roa MD at 17:48 EST ,
[2022-09-20 08:40] LABS: Prothrombin Time (Protime)PT. 15.4 SECONDS (11.7-14.9)
[2022-09-20 08:41] LABS: International Normalized Ratio 1.3
[2022-09-20 08:47] LABS: Amylase 170 U/L (25-115); LDH 168 U/L (87-241); Lipase 321 U/L (73-393)
[2022-09-20 09:15] LABS: Partial Thromboplast Time 59.7 Seconds (24.1-36.2)
[2022-09-20] MEDS: Aspirin 81 MG TAB.CHEW PO (09:49)
[2022-09-20] MEDS: Ensure Clear 120 ML Liquid PO (09:49)
[2022-09-20] MEDS: Pantoprazole Sodium 40 MG Tablet PO (09:54)
[2022-09-20] MEDS: Sertraline 100 MG Tablet PO (09:56)
[2022-09-20] MEDS: 0.9% Normal Saline 1,000 ML 75 ML IV (10:02)
[2022-09-20 10:03] LABS: Lactic Acid 1.6 mmol/L (0.4-1.9)
--- NOTE | 2022-09-20 14:47 | PCM.PROGNOTE ---
Subjective Subjective Patient is somewhat lethargic. He is not eating. He denies any chest pain or shortness of breath. He still complains of a little bit of abdominal pain in the epigastric region. He rates it at a 4 out of 10. Objective Data Objective Data Vital Signs: Vital Signs Temp Pulse Resp BP Pulse Ox O2 Del Method 97.8 F 75 18 100/60 100 Room Air 09/20/22 10:12 09/20/22 10:12 09/20/22 10:12 09/20/22 10:12 09/20/22 10:12 09/20/22 10:20 Oxygen Delivery Method Room Air Weight: 122 lb 2.177 oz Body Mass Index (BMI) 22.3 Intake & Output: Intake and Output for Last 24 Hours 09/18/22 09/19/22 09/20/22 23:59 23:59 23:59 Intake Total 3070.34 / 3070.34 2190.08 / 2190.08 1028.75 / 1028.75 Output Total 525 / 625 325 / 325 200 / 200 Balance 2545.34 / 2445.34 1865.08 / 1865.08 828.75 / 828.75 Medical Nutrition Assessment Dietitian: Malnutrition Criteria Met Start: 09/16/22 14:13 Freq: Status: Active Protocol: Document 09/16/22 14:13 RIN (Rec: 09/16/22 14:13 AG [id number]) Nutrition Malnutrition Evidence of Malnutrition Exists Yes Malnutrition (severe): Acute Illness/Injury Evidenced By Suboptimal Energy Intake ( Severe),Weight Loss (Severe), Physical Changes (Severe) Clinical Problem Acute Disease or Injury Related Malnutrition Etiology severe, acute malnutrition related to inadequate energy intake d/t GI dysfunction Signs/Symptoms as evidenced by unintentional 45#/27% wt loss < 1 month; estimated PO intake meeting < 50% of estimated energy needs >5 days; severe muscle wasting /fat loss per physical exam Status Active Problem Recommendation Dietitian Recommendations/Changes recommend advance diet as tolerated to regular/fat restricted; will add 8oz ensure clear w/ meals and d/c ensure compact Lab / Micro Data Result Diagrams: 09/20/22 06:19 09/20/22 06:19 Labs: Laboratory Results - last 24 hr 09/19/22 14:45: APTT 66.8 H 09/20/22 06:19: WBC 6.2, RBC 3.35 L, Hgb 9.3 L, Hct 30.5 L, MCV 91.0, MCH 27.8, MCHC 30.5 L, RDW Std Deviation 41.9, RDW Coeff of Fili 12.7, Plt Count 199, MPV 10.8, Immature Gran % (Auto) 1.100 H, Neut % (Auto) 73.7 H, Lymph % (Auto) 15.8 L, Reynolds % (Auto) 8.5, Eos % (Auto) 0.6, Baso % (Auto) 0.3, Absolute Neuts (auto) 4.6, Absolute Lymphs (auto) 0.98, Nucleated RBC % 0, ESR 65 H 09/20/22 06:19: Sodium 130 L, Potassium 3.7, Chloride 101, Carbon Dioxide 20.0 L, Anion Gap 9, BUN 17, Creatinine 0.65 L, Estim Creat Clear Calc 99.17, Est GFR (MDRD) Af Amer 162, Est GFR (MDRD) Non-Af 134, BUN/Creatinine Ratio 26.0 H, Glucose 204 H, Calcium 7.7 L, Iron 20 L, TIBC 246 L, Ferritin 1166 H, Total Bilirubin 0.50, AST 37, ALT 27, Alkaline Phosphatase 191 H, C-React Prot Ext Range 220.00 H, Total Protein 5.8 L, Albumin 1.3 L, Globulin 4.5 H, Albumin/Globulin Ratio 0.3 L, TSH < 0.01 L, Free T4 1.43 09/20/22 06:19: Ammonia 20.0 09/20/22 06:19: Lactate Dehydrogenase 168, Amylase 170 H, Lipase 321 09/20/22 06:53: APTT 59.7 H 09/20/22 06:53: PT 15.4 H, INR 1.3 09/20/22 09:32: Lactic Acid 1.6 Micro: Microbiology 09/15/22 21:55 Blood Culture (Wb) - Right Forearm Blood Culture - Preliminary No growth in 48 hours. 09/15/22 21:44 Blood Culture (Wb) - Anticubital Right Blood Culture - Preliminary No growth in 48 hours. Physical Exam HEENT normocephalic and head/scalp atraumatic Eyes Eyes Narrative: EOM grossly intact Neck supple Resp normal respiratory effort and clear to auscultation bilaterally Cardio regular rate and regular rhythm GI soft to palpation GI Narrative: Tender in the epigastric region and left upper quadrant Extremity Extremity Narrative: No edema appreciated Neuro moves all extremities Neuro Narrative: No overt focal deficits appreciated Psych Psych Narrative: Cooperative Assessment & Plan Assessment/Plan (1) Portal vein thrombosis: PLAN: Awaiting results of his CTA. Continue current management with anticoagulation. His hemoglobin seems stable at this time.? He will likely need an upper endoscopy on Tuesday pending his CT angiography of the abdomen pelvis to look for any signs of varices in his stomach.? IF there is any sign of ascites I would stop anticoagulation because that could indicate hemorrhagic ascites or hemorrhagic transformation of his pancreatitis.? (2) Pancreatitis: QUALIFIERS: Chronicity: acute Pancreatitis type: unspecified pancreatitis type Acute pancreatitis complication: no infection or necrosis Qualified Code(s): K85.90 - Acute pancreatitis without necrosis or infection, unspecified PLAN: Severe idiopathic pancreatitis with possible pancreatic necrosis in the setting of possible chronic pancreatitis or acute recurrent pancreatitis with pseudocyst formation. Awaiting repeat CT scan of the abdomen pelvis. Repeat ESR, CRP, amylase, lipase, lactate, LDH. Continue Reglan therapy. Encourage protein supplementation. Charges/Coding Visit Charges Inpatient E&M: 40121 Subs Hosp L3
--- NOTE | 2022-09-20 18:37 | PCM.PN.HOSP ---
Subjective Subjective Reports feeling roughly the same, abdominal pain mild to moderate and he reports this is possibly better than it had been, has had some pain in his back. Has not had a bowel movement yet today. Trying to increase his oral intake. Denied other complaints today Objective Data Objective Data Vital Signs: Vital Signs Temp Pulse Resp BP Pulse Ox O2 Del Method 97.9 F 76 14 104/62 98 Room Air 09/20/22 16:10 09/20/22 16:10 09/20/22 16:10 09/20/22 16:10 09/20/22 16:10 09/20/22 16:10 Oxygen Delivery Method Room Air Weight: 55.4 kg Body Mass Index (BMI) 22.3 Intake & Output: Intake and Output for Last 24 Hours 09/18/22 09/19/22 09/20/22 23:59 23:59 23:59 Intake Total 3070.34 / 3070.34 2190.08 / 2190.08 2331.25 / 2331.25 Output Total 525 / 625 325 / 325 200 / 200 Balance 2545.34 / 2445.34 1865.08 / 1865.08 2131.25 / 2131.25 Medical Nutrition Assessment Dietitian: Malnutrition Criteria Met Start: 09/16/22 14:13 Freq: Status: Active Protocol: Document 09/20/22 14:55 RMA (Rec: 09/20/22 14:55 RMA [id number]) Nutrition Malnutrition Evidence of Malnutrition Exists Yes Malnutrition (severe): Acute Illness/Injury Evidenced By Suboptimal Energy Intake ( Severe),Weight Loss (Severe), Physical Changes (Severe) Clinical Problem Acute Disease or Injury Related Malnutrition Etiology severe, acute malnutrition related to inadequate energy intake d/t GI dysfunction Signs/Symptoms as evidenced by unintentional 45#/27% wt loss < 1 month; estimated PO intake meeting < 50% of estimated energy needs >5 days; severe muscle wasting /fat loss per physical exam Status Active Problem Recommendation Dietitian Recommendations/Changes Recommend advance diet as tolerated to regular/fat restricted. Will d/c 8oz ensure clear w/ meals and d/c ensure clear with medpass. Will add 120 ml ensure plus high protein TID w/ meals for tolerance. Adjust ONS as needed to optimize oral intake at meals and promote weight gain. Lab / Micro Data Result Diagrams: 09/20/22 06:19 09/20/22 06:19 Labs: Laboratory Results - last 24 hr 09/20/22 06:19: WBC 6.2, RBC 3.35 L, Hgb 9.3 L, Hct 30.5 L, MCV 91.0, MCH 27.8, MCHC 30.5 L, RDW Std Deviation 41.9, RDW Coeff of Fili 12.7, Plt Count 199, MPV 10.8, Immature Gran % (Auto) 1.100 H, Neut % (Auto) 73.7 H, Lymph % (Auto) 15.8 L, [place] % (Auto) 8.5, Eos % (Auto) 0.6, Baso % (Auto) 0.3, Absolute Neuts (auto) 4.6, Absolute Lymphs (auto) 0.98, Nucleated RBC % 0, ESR 65 H 09/20/22 06:19: Sodium 130 L, Potassium 3.7, Chloride 101, Carbon Dioxide 20.0 L, Anion Gap 9, BUN 17, Creatinine 0.65 L, Estim Creat Clear Calc 99.17, Est GFR (MDRD) Af Amer 162, Est GFR (MDRD) Non-Af 134, BUN/Creatinine Ratio 26.0 H, Glucose 204 H, Calcium 7.7 L, Iron 20 L, TIBC 246 L, Ferritin 1166 H, Total Bilirubin 0.50, AST 37, ALT 27, Alkaline Phosphatase 191 H, C-React Prot Ext Range 220.00 H, Total Protein 5.8 L, Albumin 1.3 L, Globulin 4.5 H, Albumin/Globulin Ratio 0.3 L, TSH < 0.01 L, Free T4 1.43 09/20/22 06:19: Ammonia 20.0 09/20/22 06:19: Lactate Dehydrogenase 168, Amylase 170 H, Lipase 321 09/20/22 06:53: APTT 59.7 H 09/20/22 06:53: PT 15.4 H, INR 1.3 09/20/22 09:32: Lactic Acid 1.6 Micro: Microbiology 09/15/22 21:55 Blood Culture (Wb) - Right Forearm Blood Culture - Preliminary No growth in 48 hours. 09/15/22 21:44 Blood Culture (Wb) - Anticubital Right Blood Culture - Preliminary No growth in 48 hours. Radiography Diagnostic Testing: Radiology Impression Abdomen/Pelvis CTA 09/20/22 07:56 IMPRESSION: Due to inadequate opacification of the portal venous system, cannot assess for portal venous thrombosis. Redemonstration of acute necrotic pancreatitis with increase in size of peripancreatic acute necrotic collections extending inferiorly through the retroperitoneum and involving the right pararenal space and evert hepatis. Increased now moderate right and trace left pleural effusions. Mild splenomegaly. No other change from prior. Electronically Signed: Gee Roa MD at 17:48 EST , Physical Exam Const Constitutional Narrative: More awake and up in chair HEENT normocephalic and head/scalp atraumatic Eyes Eyes Narrative: EOM grossly intact Neck supple Resp normal respiratory effort and clear to auscultation bilaterally Cardio regular rate and regular rhythm GI soft to palpation GI Narrative: Still somewhat tender diffusely on palpation but no rebound, guarding, rigidity Extremity Extremity Narrative: No edema appreciated Neuro moves all extremities Neuro Narrative: No overt focal deficits appreciated Psych Psych Narrative: Cooperative Assessment & Plan Assessment/Plan (1) Pancreatitis: QUALIFIERS: Chronicity: acute Pancreatitis type: unspecified pancreatitis type Acute pancreatitis complication: no infection or necrosis Qualified Code(s): K85.90 - Acute pancreatitis without necrosis or infection, unspecified (2) Hyperthyroidism: (3) Abnormal EKG: (4) Hyperkalemia: (5) Pancreatic pseudocyst: (6) Weight loss: (7) Encephalopathy: PLAN: Plan #Acute pancreatitis MRCP showed 6.6 cm pseudocyst involving head and uncinate process of the pancreas and there was pancreatic edema consistent with acute pancreatitis involving the evert hepatis and hepatoduodenal ligament Pain is improving slowly tolerating p.o. GI following and obtained repeat CT which read as the 6 cm pseudocyst versus abscess with worsening phlegmon extending into the evert hepatis and retroperitoneum and a portal vein thrombus. Discussed with GI, he is on Merrem On heparin drip, short acting agent given to monitor the risk for hemorrhagic transformation Ensure clear 3 times daily Pain control 09/19: Still some tenderness, on fluids and Merrem. White blood cell count has normalized. Has had 2 contrasted [address]s and want to avoid overuse but pending progress/clinical status tomorrow we will consider repeating CT with contrast for reevaluation 09/20: CTA obtained this morning resulted this evening, CT reported inadequate opacification of the portal venous system so unable to assess for thrombosis but it does redemonstrate what it reports is acute necrotic pancreatitis with increased size of peripancreatic acute necrotic collections extending inferiorly throughout the retroperitoneum and involving the right pararenal space and evert hepatis. Discussed with GI recs were to increase the fluids, add albumin, check lactate, and also for a surgery consult to be placed as well as an order for PICC as he may likely need TPN. We will continue Merrem. Will trend ESR and CRP as they are elevated. Of note his white count has improved and returned to normal, afebrile and vitals have remained stable. #Portal vein thrombosis On heparin drip, discussed with GI and they recommended short acting agent for 72 hours to monitor for hemorrhagic conversion prior to long-acting agent. Hemoglobin has remained stable #Change in mental status reports he is not close to baseline, seems to be waxing and waning Ammonia is not elevated, only 19 at this time Was hyponatremic on admission and this has gradually been improving Suspect there could be hypoactive delirium Melatonin nightly, will try nonpharmacologic management first but can consider small dose of Abilify if compatible with other medications if he remains unchanged We will also decrease bedtime trazodone dose in the event that this is contributing ESR and CRP also ordered 09/20/2022: Has seemed more awake and conversational though still somewhat confused, trending ESR and CRP #Hypothyroidism Had recent hospitalization at [place] for thyroid storm Continue methimazole, this dosage was increased on admission due to TSH less than 0.01 and free T4 of 2.6 #Abnormal EKG Planning on seeing cardiology as an outpatient Echo obtained and EF 55 to 60% with overall normal LV systolic function #DVT ppx: On heparin drip Elizabeth Roger MD Charges/Coding Visit Charges Inpatient E&M: 52100 Subs Hosp L2
[2022-09-20 19:32] LABS: Lactic Acid 1.6 mmol/L (0.4-1.9)
[2022-09-20] MEDS: 0.9% Normal Saline 1,000 ML 150 ML IV (21:05)
[2022-09-20] MEDS: MELATONIN 10 MG TABLET PO (23:05)
[2022-09-20] MEDS: Atorvastatin Calcium 40 MG Tablet PO (23:05)
[2022-09-20] MEDS: Insulin Lispro 100 UNIT/ML INSULN.PEN SC (23:10)
[2022-09-20 23:35] LABS: Bedside Glucose 267 mg/dL (74-106)
[2022-09-20] MEDS: Albumin Human 25% (100 mL) 25 GM/100 ML BAG IV (23:43)
[2022-09-21] VITALS (17 sets, daily range): BP systolic 97–142; BP diastolic 36–81; PULSE 66–87; RESP 16–18; TEMP 36.4–37.1; O2SAT 95–99
[2022-09-21] MEDS: HEPARIN/D5w 25,000 UNITS 25,000 UNITS/250 ML IV.SOLN. 8 UNITS CONT INF (01:28)
[2022-09-21] MEDS: 0.9% Normal Saline 1,000 ML 150 ML IV ×4 (03:30→21:20)
[2022-09-21] MEDS: Acetaminophen 500 MG Tablet PO ×3 (05:47→21:39)
[2022-09-21] MEDS: methIMAzole 10 MG TABLET 20 MG PO ×2 (05:47→21:38)
[2022-09-21] MEDS: Propranolol 40 MG Tablet PO ×3 (05:48→21:39)
[2022-09-21] MEDS: Metoclopramide 5 MG TABLET PO ×2 (05:48→17:00)
[2022-09-21] MEDS: Insulin Lispro 100 UNIT/ML INSULN.PEN SC ×3 (06:20→21:39)
[2022-09-21 06:45] LABS: Bedside Glucose 183 mg/dL (74-106)
[2022-09-21 07:11] LABS: Erythrocyte Sedimentation Rate 52 mm/hr (0-20)
[2022-09-21 07:13] LABS: Absolute Lymphocyte Count 0.95 X10^3/uL (0.83-4.51); Absolute Neutrophil Count 4.9 X10^3/uL (2.0-7.7); Basophil# 0.01 X10^3/uL; Basophil% 0.2 % (0-1); Eosinophil# 0.05 X10^3/uL; Eosinophils% 0.8 % (0-5); Hematocrit 29.4 % (40-54); Hemoglobin 9.1 g/dL (13.0-16.5); Lymphocyte # 0.95 X10^3/ul (0.83-4.51); Lymphocyte % 14.4 % (19-41); Mean Corpuscular Hgb 28.1 pg (27.0-32.0); Mean Corpuscular Volume 90.7 fL (80-94); Mean Platelet Vol. 10.7 fl (6.2-12.0); Monocyte# 0.55 X10^3/uL; Monocyte% 8.3 % (0-10); NRBC Flagged by Analyzer 0 % (0-5); Neutrophil # 4.94 X10^3/uL (2.7-7.7); Neutrophil % 74.5 % (47-70); POSITIVE MORPHOLOGY YES; Platelet Count 231 K/mm3 (150-450); RBC Distribution Width CV 12.7 % (11.6-14.6); RBC Distribution Width SD 41.9 fl (35.1-43.9); Red Blood Count 3.24 M/mm3 (4.6-6.2); White Blood Count 6.6 K/mm3 (4.4-11.0)
[2022-09-21 07:30] LABS: Differential Indicated SCAN CRITERIA MET
[2022-09-21 07:32] LABS: ALB/GLOB Ratio 0.4 RATIO (0.9-2.4); AST(SGOT) 43 U/L (15-37); Alanine Aminotransfer ALT/SGPT 29 U/L (16-61); Albumin, Serum 1.8 g/dL (3.2-5.0); Alkaline Phosphatase 257 U/L (45-117); Anion Gap 7 (5-15); BUN 10 mg/dL (7-18); BUN/Creat Ratio 15.8 RATIO (10-20); Calcium,Total 7.9 mg/dL (8.5-10.1); Chloride 104 mmol/L (98-107); Creatinine, Serum 0.63 mg/dL (0.70-1.30); EST Glomerular Filtration Rate 139 mL/min (>60); Est Glom Filt Rate - Afr Amer 168 mL/min (>60); Estimated Creatinine Clearance 102.31 ml/min; Globulin 4.2 g/dL (2.2-4.2); Glucose 168 mg/dL (74-106); Potassium 3.4 mmol/L (3.5-5.1); Sodium Level 133 mmol/L (136-145)
[2022-09-21 07:41] LABS: Thyroid Stim Hormone (TSH) < 0.01 uIU/mL (0.358-3.74)
[2022-09-21] MEDS: Pantoprazole Sodium 40 MG Tablet PO (08:16)
[2022-09-21] MEDS: Sertraline 100 MG Tablet PO (08:16)
[2022-09-21 08:53] LABS: Hemoglobin A1c 7.4 % (3.8-5.6)
[2022-09-21 09:24] LABS: Differential Comment SCANNED
--- NOTE | 2022-09-21 09:41 | CON.PCM.SX_ITS ---
Assessment & Plan Assessment/Plan (1) Pancreatitis: QUALIFIERS: Chronicity: acute Pancreatitis type: unspecified pancreatitis type Acute pancreatitis complication: no infection or necrosis Qualified Code(s): K85.90 - Acute pancreatitis without necrosis or infection, unspecified PLAN: This is a 56-year-old male, who appears clinically older than stated age, currently under treatment for diagnosis of pancreatic necrosis with pseudocyst. Patient reports symptomatic improvements with improved p.o. tolerance and more regular bowel function as well as decreased pain. Surgery was asked to consult on patient for additional clinical evaluation. With patient's reported improvements, I do not find cause for any acute surgical intervention. Agree with aggressive IV fluid resuscitation and encouraging p.o. intake. Should patient face a heightened clinical suspicion for gastric outlet obstruction, could consider endoscopically placed Dobbhoff tube. Alternatively, patient's pseudocyst abuts the posterior gastric wall and would be well positioned for cystgastrostomy. Unfortunately, I do not believe this institution has capabilities for endoscopic ultrasound so he may require transfer to a tertiary facility. Concerning patient's management with empiric IV antibiotic therapy, may consider discontinuation without clinical evidence for infected pancreatic necrosis so as to mitigate patient's risk for opportunistic infection. We will continue to follow. (2) Pancreatic pseudocyst: HPI Consult Data Date of Consult: 09/21/22 HPI Narrative HPI Narrative: JAILYN HANNA, is a 56 M who presented to [facility] on 09/15/2022 after abdominal pain he began experiencing that the beginning of the month failed to remit. Patient is somewhat of a poor historian, but I gather from the chart that he was previously admitted at [place] with pancreatitis, bowel obstruction, and thyroid storm. Since his hospitalization here in [place], GI has been on consult and providing clinical guidance recommending aggressive fluid resuscitation, anticoagulation, and IV antibiotic therapy. From his admitting CT, patient has been monitored for evolution of a pancreatic pseudocyst with evidence of pancreatic necrosis. Today patient reports that he is overall feeling better. He states that he has much less pain and has been able to tolerate some of his diet, but feels full quickly. He estimates that he is taking approximately 40% of his trays. Additionally, he reports that his bowels have been moving more reliably over the last couple of days. Patient admits to a history of alcohol abuse, but states that he will be 4 years abstinent in March 2023. He reports tobacco use up until his admission and estimates that he has 20 years at at least 10 cigarettes a day. He has a history of cholecystectomy, but is unsure of the year this was performed. Concerning a history of thyroid disease, patient reports awareness of his mother being diagnosed with Graves'. Personally, he reports fatigue leading up to his admission, occasional sweating, and occasional tremor. He additionally reports blurry vision and dry eyes. [facility] Medical History (Updated 09/19/22 @ 17:[address] Huber Magdaleno, ) Hyperthyroidism Home Medications aspirin 81 mg chewable tablet 81 mg PO DAILY HEART HEALTH 09/15/22 [History Last Taken 09/15/22] atorvastatin 40 mg tablet 40 mg PO DAILY CHOLESTEROL 09/15/22 [History Last Taken 09/14/22] buspirone 5 mg tablet 5 mg PO TID ANXIETY 09/15/22 [History Last Taken 09/14/22] metformin 500 mg tablet 500 mg PO DAILY 09/15/22 [History Last Taken 09/14/22] methimazole 10 mg tablet 10 mg PO 5X/DAY thyroid 09/15/22 [History Last Taken 09/15/22] omeprazole 20 mg capsule,delayed release 20 mg PO DAILY ACID REFLUX 09/15/22 [History Last Taken Unknown] propranolol 40 mg tablet 40 mg PO 4X/DAY HEART 09/15/22 [History Last Taken 09/14/22] sertraline 100 mg tablet 200 mg PO DAILY depression/anxiety 09/15/22 [History Last Taken 09/14/22] trazodone 100 mg tablet 200 mg PO QHS PRN Insomnia 09/15/22 [History Last Taken 09/14/22] Allergy/AdvReac Type Severity Reaction Status Date / Time No Known Allergies Allergy Verified 09/15/22 15:42 Family History (Updated 09/15/22 @ 18:[address] Lamberto Franco DO) Father Graves disease Surgical History (Updated 09/15/22 @ 18:[address] Lamberto Franco DO) Hx of cholecystectomy Social History (Updated 09/15/22 @ 18:[address] Lamberto Franco DO) Smoking Status: Former smoker alcohol intake: former substance use type: does not use Physical Exam Const alert General Appearance: frail and appears older than stated age Orientation / Consciousness: oriented to person and oriented to place Resp normal respiratory effort GI GI Narrative: Moderately distended, tender outpatient over the epigastrium, contusion to left lower quadrant Medical Records Data Medical Nutrition Assessment Dietitian: Malnutrition Criteria Met Start: 09/16/22 14:13 Freq: Status: Active Protocol: Document 09/20/22 14:55 RMA (Rec: 09/20/22 14:55 RMA [id number]) Nutrition Malnutrition Evidence of Malnutrition Exists Yes Malnutrition (severe): Acute Illness/Injury Evidenced By Suboptimal Energy Intake ( Severe),Weight Loss (Severe), Physical Changes (Severe) Clinical Problem Acute Disease or Injury Related Malnutrition Etiology severe, acute malnutrition related to inadequate energy intake d/t GI dysfunction Signs/Symptoms as evidenced by unintentional 45#/27% wt loss < 1 month; estimated PO intake meeting < 50% of estimated energy needs >5 days; severe muscle wasting /fat loss per physical exam Status Active Problem Recommendation Dietitian Recommendations/Changes Recommend advance diet as tolerated to regular/fat restricted. Will d/c 8oz ensure clear w/ meals and d/c ensure clear with medpass. Will add 120 ml ensure plus high protein TID w/ meals for tolerance. Adjust ONS as needed to optimize oral intake at meals and promote weight gain. Lab / Micro Data Result Diagrams: 09/21/22 05:20 09/21/22 05:20 Labs: Laboratory Results - last 24 hr 09/20/22 09:32: Lactic Acid 1.6 09/20/22 19:00: Lactic Acid 1.6 09/20/22 23:02: POC Glucose 267 H 09/21/22 05:20: APTT 47.0 H 09/21/22 05:20: WBC 6.6, RBC 3.24 L, Hgb 9.1 L, Hct 29.4 L, MCV 90.7, MCH 28.1, MCHC 31.0 L, RDW Std Deviation 41.9, RDW Coeff of Fili 12.7, Plt Count 231, MPV 10.7, Immature Gran % (Auto) 1.800 H, Neut % (Auto) 74.5 H, Lymph % (Auto) 14.4 L, [place] % (Auto) 8.3, Eos % (Auto) 0.8, Baso % (Auto) 0.2, Absolute Neuts (auto) 4.9, Absolute Lymphs (auto) 0.95, Nucleated RBC % 0, Differential Comment SCANNED, ESR 52 H 09/21/22 05:20: Sodium 133 L, Potassium 3.4 L, Chloride 104, Carbon Dioxide 22.0, Anion Gap 7, BUN 10, Creatinine 0.63 L, Estim Creat Clear Calc 102.31, Est GFR (MDRD) Af Amer 168, Est GFR (MDRD) Non-Af 139, BUN/Creatinine Ratio 15.8, Glucose 168 H, Calcium 7.9 L, Total Bilirubin 0.60, AST 43 H, ALT 29, Alkaline Phosphatase 257 H, C-React Prot Ext Range 149.00 H, Total Protein 6.0 L, Albumin 1.8 L, Globulin 4.2, Albumin/Globulin Ratio 0.4 L 09/21/22 05:20: TSH < 0.01 L 09/21/22 05:20: Hemoglobin A1c 7.4 H 09/21/22 06:19: POC Glucose 183 H Micro: Microbiology 09/15/22 21:55 Blood Culture (Wb) - Right Forearm Blood Culture - Final No growth in 5 days. 09/15/22 21:44 Blood Culture (Wb) - Anticubital Right Blood Culture - Final No growth in 5 days. Radiology Impression Abdomen/Pelvis CTA 09/20/22 07:56 IMPRESSION: Due to inadequate opacification of the portal venous system, cannot assess for portal venous thrombosis. Redemonstration of acute necrotic pancreatitis with increase in size of peripancreatic acute necrotic collections extending inferiorly through the retroperitoneum and involving the right pararenal space and evert hepatis. Increased now moderate right and trace left pleural effusions. Mild splenomegaly. No other change from prior. Electronically Signed: Gee Roa MD at 17:48 EST , Charges/Coding Visit Charges Inpatient E&M: 23382 Init Hosp L2
[2022-09-21] MEDS: Potassium Chloride Oral Tablet 20 MEQ 40 MEQ PO (09:42)
[2022-09-21] MEDS: oxyCODONE 5 MG Tablet PO ×2 (09:42→14:36)
[2022-09-21] MEDS: Albumin Human 25% (100 mL) 25 GM/100 ML BAG IV ×2 (10:57→21:24)
--- NOTE | 2022-09-21 11:36 | PN.HOSP_ITS ---
Subjective Subjective Still reports he is feeling his abdominal pain is better than it had been, has remained confused however. Did have EGD which showed erosive esophagitis and nonbleeding duodenal ulcer but no varices Objective Data Objective Data Vital Signs: Vital Signs Temp Pulse Resp BP Pulse Ox O2 Del Method 97.6 F L 71 18 142/81 H 98 Room Air 09/21/22 11:10 09/21/22 11:10 09/21/22 11:10 09/21/22 11:10 09/21/22 11:10 09/21/22 11:10 Oxygen Delivery Method Room Air Weight: 55.4 kg Body Mass Index (BMI) 22.3 Intake & Output: Intake and Output for Last 24 Hours 09/19/22 09/20/22 09/21/22 23:59 23:59 23:59 Intake Total 2190.08 / 2190.08 2698.75 / 2818.75 2776.63 / 2776.63 Output Total 325 / 325 200 / 350 150 / 150 Balance 1865.08 / 1865.08 2498.75 / 2468.75 2626.63 / 2626.63 Medical Nutrition Assessment Dietitian: Malnutrition Criteria Met Start: 09/16/22 14:13 Freq: Status: Active Protocol: Document 09/20/22 14:55 RMA (Rec: 09/20/22 14:55 RMA [id number]) Nutrition Malnutrition Evidence of Malnutrition Exists Yes Malnutrition (severe): Acute Illness/Injury Evidenced By Suboptimal Energy Intake ( Severe),Weight Loss (Severe), Physical Changes (Severe) Clinical Problem Acute Disease or Injury Related Malnutrition Etiology severe, acute malnutrition related to inadequate energy intake d/t GI dysfunction Signs/Symptoms as evidenced by unintentional 45#/27% wt loss < 1 month; estimated PO intake meeting < 50% of estimated energy needs >5 days; severe muscle wasting /fat loss per physical exam Status Active Problem Recommendation Dietitian Recommendations/Changes Recommend advance diet as tolerated to regular/fat restricted. Will d/c 8oz ensure clear w/ meals and d/c ensure clear with medpass. Will add 120 ml ensure plus high protein TID w/ meals for tolerance. Adjust ONS as needed to optimize oral intake at meals and promote weight gain. Lab / Micro Data Result Diagrams: 09/21/22 05:20 09/21/22 05:20 Labs: Laboratory Results - last 24 hr 09/20/22 19:00: Lactic Acid 1.6 09/20/22 23:02: POC Glucose 267 H 09/21/22 05:20: APTT 47.0 H 09/21/22 05:20: WBC 6.6, RBC 3.24 L, Hgb 9.1 L, Hct 29.4 L, MCV 90.7, MCH 28.1, MCHC 31.0 L, RDW Std Deviation 41.9, RDW Coeff of Fili 12.7, Plt Count 231, MPV 10.7, Immature Gran % (Auto) 1.800 H, Neut % (Auto) 74.5 H, Lymph % (Auto) 14.4 L, [place] % (Auto) 8.3, Eos % (Auto) 0.8, Baso % (Auto) 0.2, Absolute Neuts (auto) 4.9, Absolute Lymphs (auto) 0.95, Nucleated RBC % 0, Differential Comment SCANNED, ESR 52 H 09/21/22 05:20: Sodium 133 L, Potassium 3.4 L, Chloride 104, Carbon Dioxide 22.0, Anion Gap 7, BUN 10, Creatinine 0.63 L, Estim Creat Clear Calc 102.31, Est GFR (MDRD) Af Amer 168, Est GFR (MDRD) Non-Af 139, BUN/Creatinine Ratio 15.8, Glucose 168 H, Calcium 7.9 L, Total Bilirubin 0.60, AST 43 H, ALT 29, Alkaline Phosphatase 257 H, C-React Prot Ext Range 149.00 H, Total Protein 6.0 L, Albumin 1.8 L, Globulin 4.2, Albumin/Globulin Ratio 0.4 L 09/21/22 05:20: TSH < 0.01 L 09/21/22 05:20: Hemoglobin A1c 7.4 H 09/21/22 06:19: POC Glucose 183 H Micro: Microbiology 09/15/22 21:55 Blood Culture (Wb) - Right Forearm Blood Culture - Final No growth in 5 days. 09/15/22 21:44 Blood Culture (Wb) - Anticubital Right Blood Culture - Final No growth in 5 days. Radiography Diagnostic Testing: Radiology Impression Abdomen/Pelvis CTA 09/20/22 07:56 IMPRESSION: Due to inadequate opacification of the portal venous system, cannot assess for portal venous thrombosis. Redemonstration of acute necrotic pancreatitis with increase in size of peripancreatic acute necrotic collections extending inferiorly through the retroperitoneum and involving the right pararenal space and evert hepatis. Increased now moderate right and trace left pleural effusions. Mild splenomegaly. No other change from prior. Electronically Signed: Gee Roa MD at 17:48 EST , Physical Exam Const Constitutional Narrative: Resting comfortably in bed, still somewhat confused HEENT normocephalic and head/scalp atraumatic Eyes Eyes Narrative: EOM grossly intact Neck supple Resp normal respiratory effort and clear to auscultation bilaterally Cardio regular rate and regular rhythm GI soft to palpation GI Narrative: Still somewhat tender diffusely on palpation but no rebound, guarding, rigidity Extremity Extremity Narrative: No edema appreciated Neuro moves all extremities Neuro Narrative: No overt focal deficits appreciated Psych Psych Narrative: Cooperative Assessment & Plan Assessment/Plan (1) Pancreatitis: QUALIFIERS: Chronicity: acute Pancreatitis type: unspecified panc reatitis type Acute pancreatitis complication: no infection or necrosis Qualified Code(s): K85.90 - Acute pancreatitis without necrosis or infection, unspecified (2) Hyperthyroidism: (3) Abnormal EKG: (4) Hyperkalemia: (5) Pancreatic pseudocyst: (6) Weight loss: (7) Encephalopathy: PLAN: Plan #Acute pancreatitis MRCP showed 6.6 cm pseudocyst involving head and uncinate process of the pancreas and there was pancreatic edema consistent with acute pancreatitis involving the evert hepatis and hepatoduodenal ligament Pain is improving slowly tolerating p.o. GI following and obtained repeat CT which read as the 6 cm pseudocyst versus abscess with worsening phlegmon extending into the evert hepatis and retroperitoneum and a portal vein thrombus. Discussed with GI, he is on Merrem On heparin drip, short acting agent given to monitor the risk for hemorrhagic transformation Ensure clear 3 times daily Pain control 09/19: Still some tenderness, on fluids and Merrem. White blood cell count has normalized. Has had 2 contrasted [address]s and want to avoid overuse but pending progress/clinical status tomorrow we will consider repeating CT with contrast for reevaluation 09/20: CTA obtained this morning resulted this evening, CT reported inadequate opacification of the portal venous system so unable to assess for thrombosis but it does redemonstrate what it reports is acute necrotic pancreatitis with in creased size of peripancreatic acute necrotic collections extending inferiorly throughout the retroperitoneum and involving the right pararenal space and evert hepatis. Discussed with GI recs were to increase the fluids, add albumin, check lactate, and also for a surgery consult to be placed as well as an order for PICC as he may likely need TPN. We will continue Merrem. Will trend ESR and CRP as they are elevated. Of note his white count has improved and returned to normal, afebrile and vitals have remained stable. 09/21: EGD performed today by Dr. Magdaleno and showed esophagitis and nonbleeding duodenal ulcer but no varices. Also was evaluated by surgery today and given the fact that he has decreased pain surgery does not feel there needs to be any acute intervention. If intervention does need to be performed may need to be transferred to tertiary facility. Surgery also said to consider discontinuation of antibiotics if there is no clinical evidence of infected pancreatic necrosis. He did have white count of 25,000 prior to meropenem being started and it did improve white count from there, still given current status improvement will consider discontinuing #Portal vein thrombosis On heparin drip, discussed with GI and they recommended short acting agent for 72 hours to monitor for hemorrhagic conversion prior to long-acting agent. Hemoglobin has remained stable #Change in mental status reports he is not close to baseline, seems to be waxing and waning Ammonia is not elevated, only 19 at this time Was hyponatremic on admission and this has gradually been improving Suspect there could be hypoactive delirium Melatonin nightly, will try nonpharmacologic management first but can consider small dose of Abilify if compatible with other medications if he remains unchanged We will also decrease bedtime trazodone dose in the event that this is contributing ESR and CRP also ordered 09/20/2022: Has seemed more awake and conversational though still somewhat confused, trending ESR and CRP #Hypothyroidism Had recent hospitalization at [facility] for thyroid storm Continue methimazole, this dosage was increased on admission due to TSH less than 0.01 and free T4 of 2.6 #Abnormal EKG Planning on seeing cardiology as an outpatient Echo obtained and EF 55 to 60% with overall normal LV systolic function #DVT ppx: On heparin drip Elizabeth Roger MD Charges/Coding Visit Charges Inpatient E&M: 54457 Subs Hosp L2
[2022-09-21 11:40] LABS: Bedside Glucose 143 mg/dL (74-106)
--- NOTE | 2022-09-21 12:29 | OP.CCLET_ITS ---
09/21/2022 Cristopher Oliveros [address] [place] [address] Re : Upper GI endoscopy procedure for Hemant Jones Dear Dr. Oliveros This procedure was performed on Wednesday, September 21, 2022. My impressions and recommendations are as follows: Impressions : - LA Grade B erosive esophagitis. - Gastric antral vascular ectasia without bleeding. - One non-bleeding duodenal ulcer with no stigmata of bleeding. Biopsied. -There were no gastric varices seen as a result of the severe pancreatitis Recommendations : - [facility]. -Continue PPI therapy -Continue supportive care - Continue present medications. My findings are described in the full procedure note, which is enclosed. If I can be of further assistance, please feel free to contact me at . Sincerely, Huber Magdaleno, 09/21/2022 12:28:37 PM This report has been signed electronically.
--- NOTE | 2022-09-21 12:29 | OP.EGD_ITS ---
Patient Name: Hemant Jones Procedure Date: 09/21/2022 11:57 AM Date of : 1965 Age: 56 Procedure: Upper GI endoscopy Indications: Iron deficiency anemia, Failure to respond to medical treatment Providers: Huber Magdaleno DO Medicines: Monitored Anesthesia Care Patient Profile: This is a 56 year old male. Refer to note in patient chart for documentation of history and physical. Patient has symptoms of acute epigastric abdominal pain. Complications: No immediate complications. Procedure: Pre-Anesthesia Assessment: - Prior to the procedure, a History and Physical was performed, and patient medications and allergies were reviewed. The risks and benefits of the procedure and the sedation options and risks were discussed with the patient. All questions were answered and informed consent was obtained. Patient identification and proposed procedure were verified by the physician in the pre-procedure area. Mental Status Examination: alert and oriented. Airway Examination: normal oropharyngeal airway and neck mobility. Respiratory Examination: clear to auscultation. CV Examination: normal. Prophylactic Antibiotics: The patient does not require prophylactic antibiotics. Prior Anticoagulants: The patient has taken no previous anticoagulant or antiplatelet agents. ASA Grade Assessment: III - A patient with severe systemic disease. After reviewing the risks and benefits, the patient was deemed in satisfactory condition to undergo the procedure. The anesthesia plan was to use monitored anesthesia care (MAC). Immediately prior to administration of medications, the patient was re-assessed for adequacy to receive sedatives. The heart rate, respiratory rate, oxygen saturations, blood pressure, adequacy of pulmonary ventilation, and response to care were monitored throughout the procedure. The physical status of the patient was re-assessed after the procedure. After obtaining informed consent, the endoscope was passed under direct vision. Throughout the procedure, the patient's blood pressure, pulse, and oxygen saturations were monitored continuously. The gastroscope was introduced through the mouth, and advanced to the second part of duodenum. The upper GI endoscopy was accomplished without difficulty. The patient tolerated the procedure well. Scope In: 12:12:01 PM Scope Out: 12:16:39 PM Total Procedure Duration Time 0 hours 4 minutes 38 seconds Findings: LA Grade B (one or more mucosal breaks greater than 5 mm, not extending between the tops of two mucosal folds) esophagitis with no bleeding was found 37 to 39 cm from the incisors. Severe gastric antral vascular ectasia without bleeding was present in the gastric antrum. One non-bleeding cratered duodenal ulcer with no stigmata of bleeding was found in the third portion of the duodenum. The lesion was 6 mm in largest dimension. Biopsies were taken with a cold forceps for histology. Verification of patient identification for the specimen was done. Estimated blood loss was minimal. Impression: - LA Grade B erosive esophagitis. - Gastric antral vascular ectasia without bleeding. - One non-bleeding duodenal ulcer with no stigmata of bleeding. Biopsied. -There were no gastric varices seen as a result of the severe pancreatitis Recommendation: - [facility] care. -Continue PPI therapy -Continue supportive care - Continue present medications. Procedure Code(s): --- Professional --- 25290, Esophagogastroduodenoscopy, flexible, transoral; with biopsy, single or multiple CPT copyright 2017 [employer]. All rights reserved. The codes documented in this report are preliminary and upon production team leader review may be revised to meet current compliance requirements. Huber Magdaleno DO 09/21/2022 12:28:37 PM This report has been signed electronically. Number of Addenda: 0 Note Initiated On: 09/21/2022 11:57 AM
[2022-09-21] MEDS: rifAXIMin 550 MG Tablet PO ×2 (14:37→21:39)
[2022-09-21] MEDS: 0.9% Saline Lock 10 ML Syringe IV (14:37)
[2022-09-21] MEDS: Lactulose 20 GM/30 ML UDC PO ×2 (14:37→21:39)
--- NOTE | 2022-09-21 15:00 | EGD_PTH ---
PATIENT: JAILYN HANNA LOC: PCU U#:[id number] AGE/SX: 56/M ROOM: [facility] RE09/15/[address]: Dr. Josi Hernandez MD : 1965 BED: 1 DIS: 10/02/2022 SPEC #: [id number] RECD: 09/21/22 16:18 STATUS: KIRK SHEARER #: [id number] BEN: 09/21/22 15:[address]: Huber Magdaleno DEPT: SURGICAL PATHOLOGY RECD BY: Sharath Cope ENTERED: 09/22/22 12:30 SP TYPE: EGD BIOPSY OT DR: DO Dr. Cristopher Mott DO Dr. Michael Bortz, MD Dr. Prakash Chand, MD Dr. Paige Pierce, MD Tissues: Duodenum, NOS Procedures: Surgery Specimen Level IV HEADER OPERATION: EGD ([facility]), biopsy PRE-OP DIAGNOSIS: Portal vein thrombosis, pancreatitis TISSUE SUBMITTED: Duodenal ulcer biopsy MICROSCOPIC DIAGNOSIS Duodenal ulcer, biopsy: Mild nonspecific chronic inflammation. Fibrinopurulent material. AM:kristyn 09/23/2022 MICROSCOPIC DESCRIPTION Slides are reviewed. GROSS DESCRIPTION Received in fixative is one container labeled with the patient's name and designated duodenal ulcer biopsy. The specimen consists of multiple irregular fragments of light aggarwal soft tissue that in aggregate measure 0.8 x .3 x 0.1 cm. The specimen is totally submitted in one cassette. / MAGO:kristyn 09/22/2022 TC:2 CPT: 69649
[2022-09-21] MEDS: Creon 12,000 unit DR CapSULE 2 CAP PO (17:01)
[2022-09-21 17:30] LABS: Bedside Glucose 163 mg/dL (74-106)
[2022-09-21] MEDS: Atorvastatin Calcium 40 MG Tablet PO (21:39)
[2022-09-21] MEDS: MELATONIN 10 MG TABLET PO (21:39)
[2022-09-21 22:55] LABS: Bedside Glucose 156 mg/dL (74-106)
[2022-09-22] VITALS (10 sets, daily range): BP systolic 126–173; BP diastolic 69–79; PULSE 68–81; RESP 16–18; TEMP 36.5–36.7; O2SAT 94–98
[2022-09-22] MEDS: 0.9% Normal Saline 1,000 ML 150 ML IV ×2 (03:56→09:55)
[2022-09-22] MEDS: oxyCODONE 5 MG Tablet PO (05:14)
[2022-09-22] MEDS: Propranolol 40 MG Tablet PO ×2 (05:16→13:17)
[2022-09-22] MEDS: Lactulose 20 GM/30 ML UDC PO ×3 (05:17→21:06)
[2022-09-22] MEDS: methIMAzole 10 MG TABLET 20 MG PO ×3 (05:17→21:06)
[2022-09-22] MEDS: Acetaminophen 500 MG Tablet PO ×3 (05:18→21:06)
[2022-09-22] MEDS: Insulin Lispro 100 UNIT/ML INSULN.PEN SC ×3 (06:48→21:16)
[2022-09-22] MEDS: Metoclopramide 5 MG TABLET PO ×3 (06:48→16:43)
[2022-09-22 07:12] LABS: Absolute Lymphocyte Count 0.93 X10^3/uL (0.83-4.51); Absolute Neutrophil Count 6.3 X10^3/uL (2.0-7.7); Basophil# 0.01 X10^3/uL; Basophil% 0.1 % (0-1); Eosinophil# 0.04 X10^3/uL; Eosinophils% 0.5 % (0-5); Hematocrit 25.5 % (40-54); Hemoglobin 8.1 g/dL (13.0-16.5); Lymphocyte # 0.93 X10^3/ul (0.83-4.51); Lymphocyte % 11.7 % (19-41); Mean Corp Hgb Conc 31.8 g/dL (32-36); Mean Corpuscular Hgb 28.6 pg (27.0-32.0); Mean Corpuscular Volume 90.1 fL (80-94); Mean Platelet Vol. 10.2 fl (6.2-12.0); Monocyte# 0.64 X10^3/uL; NRBC Flagged by Analyzer 0 % (0-5); Neutrophil # 6.26 X10^3/uL (2.7-7.7); Neutrophil % 78.7 % (47-70); POSITIVE MORPHOLOGY YES; Platelet Count 221 K/mm3 (150-450); RBC Distribution Width CV 12.8 % (11.6-14.6); RBC Distribution Width SD 42.4 fl (35.1-43.9); Red Blood Count 2.83 M/mm3 (4.6-6.2)
[2022-09-22 07:19] LABS: Differential Indicated SCAN CRITERIA MET
[2022-09-22 07:20] LABS: Bedside Glucose 188 mg/dL (74-106)
[2022-09-22 07:22] LABS: Partial Thromboplast Time 60.3 Seconds (24.1-36.2)
[2022-09-22 08:08] LABS: Differential Comment SCANNED; Erythrocyte Sedimentation Rate 28 mm/hr (0-20)
[2022-09-22 08:14] LABS: ALB/GLOB Ratio 0.6 RATIO (0.9-2.4); AST(SGOT) 153 U/L (15-37); Alanine Aminotransfer ALT/SGPT 67 U/L (16-61); Alkaline Phosphatase 475 U/L (45-117); Anion Gap 9 (5-15); BUN 7 mg/dL (7-18); BUN/Creat Ratio 11.7 RATIO (10-20); Calcium,Total 7.6 mg/dL (8.5-10.1); Chloride 109 mmol/L (98-107); EST Glomerular Filtration Rate 148 mL/min (>60); Est Glom Filt Rate - Afr Amer 179 mL/min (>60); Estimated Creatinine Clearance 107.43 ml/min; Globulin 3.4 g/dL (2.2-4.2); Glucose 203 mg/dL (74-106); Potassium 3.4 mmol/L (3.5-5.1); Protein, Total 5.4 g/dL (6.4-8.2); Sodium Level 137 mmol/L (136-145)
--- NOTE | 2022-09-22 08:35 | NURSING ---
Emergency Documentation 09/22/2022 0700
[2022-09-22] MEDS: Albumin Human 25% (100 mL) 25 GM/100 ML BAG IV ×2 (09:50→21:17)
[2022-09-22] MEDS: 0.9% Saline Lock 10 ML Syringe IV (09:50)
[2022-09-22] MEDS: Sertraline 100 MG Tablet PO (09:51)
[2022-09-22] MEDS: Pantoprazole Sodium 40 MG Tablet PO (09:51)
[2022-09-22] MEDS: rifAXIMin 550 MG Tablet PO ×2 (09:51→21:06)
[2022-09-22] MEDS: Creon 12,000 unit DR CapSULE 2 CAP PO ×3 (09:52→16:43)
[2022-09-22] MEDS: Aspirin 81 MG TAB.CHEW PO (09:52)
--- NOTE | 2022-09-22 09:52 | PCM.PN.HOSP ---
Subjective Subjective Confused this morning but does feel like his abdomen is improving. Objective Data Objective Data Vital Signs: Vital Signs Temp Pulse Resp BP Pulse Ox O2 Del Method 98.0 F 68 16 136/79 H 96 Room Air 09/22/22 09:45 09/22/22 09:45 09/22/22 09:45 09/22/22 09:45 09/22/22 09:45 09/22/22 09:45 Oxygen Delivery Method Room Air Weight: 55.4 kg Body Mass Index (BMI) 22.3 Intake & Output: Intake and Output for Last 24 Hours 09/20/22 09/21/22 09/22/22 23:59 23:59 23:59 Intake Total 2698.75 / 2818.75 4596.63 / 4596.63 1560 / 1560 Output Total 200 / 350 150 / 150 Balance 2498.75 / 2468.75 4446.63 / 4446.63 1560 / 1560 Medical Nutrition Assessment Dietitian: Malnutrition Criteria Met Start: 09/16/22 14:13 Freq: Status: Active Protocol: Document 09/20/22 14:55 RMA (Rec: 09/20/22 14:55 RMA [id number]) Nutrition Malnutrition Evidence of Malnutrition Exists Yes Malnutrition (severe): Acute Illness/Injury Evidenced By Suboptimal Energy Intake ( Severe),Weight Loss (Severe), Physical Changes (Severe) Clinical Problem Acute Disease or Injury Related Malnutrition Etiology severe, acute malnutrition related to inadequate energy intake d/t GI dysfunction Signs/Symptoms as evidenced by unintentional 45#/27% wt loss < 1 month; estimated PO intake meeting < 50% of estimated energy needs >5 days; severe muscle wasting /fat loss per physical exam Status Active Problem Recommendation Dietitian Recommendations/Changes Recommend advance diet as tolerated to regular/fat restricted. Will d/c 8oz ensure clear w/ meals and d/c ensure clear with medpass. Will add 120 ml ensure plus high protein TID w/ meals for tolerance. Adjust ONS as needed to optimize oral intake at meals and promote weight gain. Lab / Micro Data Result Diagrams: 09/22/22 06:46 09/22/22 06:46 Labs: Laboratory Results - last 24 hr 09/21/22 11:10: POC Glucose 143 H 09/21/22 16:57: POC Glucose 163 H 09/21/22 21:38: POC Glucose 156 H 09/22/22 06:44: POC Glucose 188 H 09/22/22 06:46: WBC 8.0, RBC 2.83 L, Hgb 8.1 L, Hct 25.5 L, MCV 90.1, MCH 28.6, MCHC 31.8 L, RDW Std Deviation 42.4, RDW Coeff of Fili 12.8, Plt Count 221, MPV 10.2, Immature Gran % (Auto) 1.000 H, Neut % (Auto) 78.7 H, Lymph % (Auto) 11.7 L, [place] % (Auto) 8.0, Eos % (Auto) 0.5, Baso % (Auto) 0.1, Absolute Neuts (auto) 6.3, Absolute Lymphs (auto) 0.93, Nucleated RBC % 0, Differential Comment SCANNED, ESR 28 H 09/22/22 06:46: Sodium 137, Potassium 3.4 L, Chloride 109 H, Carbon Dioxide 19.0 L, Anion Gap 9, BUN 7, Creatinine 0.60 L, Estim Creat Clear Calc 107.43, Est GFR (MDRD) Af Amer 179, Est GFR (MDRD) Non-Af 148, BUN/Creatinine Ratio 11.7, Glucose 203 H, Calcium 7.6 L, Total Bilirubin 0.80, AST 153 H, ALT 67 H, Alkaline Phosphatase 475 H, C-React Prot Ext Range 130.00 H, Total Protein 5.4 L, Albumin 2.0 L, Globulin 3.4, Albumin/Globulin Ratio 0.6 L 09/22/22 06:46: APTT 60.3 H Micro: Microbiology 09/15/22 21:55 Blood Culture (Wb) - Right Forearm Blood Culture - Final No growth in 5 days. 09/15/22 21:44 Blood Culture (Wb) - Anticubital Right Blood Culture - Final No growth in 5 days. Physical Exam Const Constitutional Narrative: Pleasantly fused HEENT normocephalic and head/scalp atraumatic Eyes Eyes Narrative: EOM grossly intact Neck supple Resp normal respiratory effort and clear to auscultation bilaterally Cardio regular rate and regular rhythm GI soft to palpation GI Narrative: Minimal tenderness, no rebound, guarding, rigidity Extremity Extremity Narrative: No edema appreciated Neuro moves all extremities Neuro Narrative: No overt focal deficits appreciated Psych Psych Narrative: Cooperative Assessment & Plan Assessment/Plan (1) Pancreatitis: QUALIFIERS: Chronicity: acute Pancreatitis type: unspecified pancreatitis type Acute pancreatitis complication: no infection or necrosis Qualified Code(s): K85.90 - Acute pancreatitis without necrosis or infection, unspecified (2) Hyperthyroidism: (3) Abnormal EKG: (4) Hyperkalemia: (5) Pancreatic pseudocyst: (6) Weight loss: (7) Encephalopathy: PLAN: Plan #Acute pancreatitis MRCP showed 6.6 cm pseudocyst involving head and uncinate process of the pancreas and there was pancreatic edema consistent with acute pancreatitis involving the evert hepatis and hepatoduodenal ligament Pain is improving slowly tolerating p.o. GI following and obtained repeat CT which read as the 6 cm pseudocyst versus abscess with worsening phlegmon extending into the evert hepatis and retroperitoneum and a portal vein thrombus. Discussed with GI, he is on Merrem On heparin drip, short acting agent given to monitor the risk for hemorrhagic transformation Ensure clear 3 times daily Pain control 09/19: Still some tenderness, on fluids and Merrem. White blood cell count has normalized. Has had 2 contrasted [address]s and want to avoid overuse but pending progress/clinical status tomorrow we will consider repeating CT with contrast for reevaluation 09/20: CTA obtained this morning resulted this evening, CT reported inadequate opacification of the portal venous system so unable to assess for thrombosis but it does redemonstrate what it reports is acute necrotic pancreatitis with increased size of peripancreatic acute necrotic collections extending inferiorly throughout the retroperitoneum and involving the right pararenal space and evert hepatis. Discussed with GI recs were to increase the fluids, add albumin, check lactate, and also for a surgery consult to be placed as well as an order for PICC as he may likely need TPN. We will continue Merrem. Will trend ESR and CRP as they are elevated. Of note his white count has improved and returned to normal, afebrile and vitals have remained stable. 09/21: EGD performed today by Dr. Magdaleno and showed esophagitis and nonbleeding duodenal ulcer but no varices. Also was evaluated by surgery today and given the fact that he has decreased pain surgery does not feel there needs to be any acute intervention. If intervention does need to be performed may need to be transferred to tertiary facility. Surgery also said to consider discontinuation of antibiotics if there is no clinical evidence of infected pancreatic necrosis. He did have white count of 25,000 prior to meropenem being started and it did improve white count from there, still given current status improvement will consider discontinuing 09/22: Abdomen continues to improve, does have a bump in LFTs and ALP today but all inflammatory markers are downtrending. Given improvement in clinical status hopefully will be able to avoid surgery, GI following #Portal vein thrombosis On heparin drip, discussed with GI and they recommended short acting agent for 72 hours to monitor for hemorrhagic conversion prior to long-acting agent. Hemoglobin has remained stable #Change in mental status reports he is not close to baseline, seems to be waxing and waning Ammonia is not elevated, only 19 at this time Was hyponatremic on admission and this has gradually been improving Suspect there could be hypoactive delirium Melatonin nightly, will try nonpharmacologic management first but can consider small dose of Abilify if compatible with other medications if he remains unchanged We will also decrease bedtime trazodone dose in the event that this is contributing ESR and CRP also ordered 09/20/2022: Has seemed more awake and conversational though still somewhat confused, trending ESR and CRP 09/22: Confused, will attempt to reach out to 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
--- NOTE | 2022-09-22 11:08 | PCM.PN.SRG ---
Subjective Subjective Patient seen and examined at bedside. He reports just waking out of a nap. Being confused. Encouragingly he reports less abdominal pain and that he is having more regular bowel movements. He states that his diet intake is about the same with just under 50% of his trays. Objective Data Objective Data Vital Signs: Vital Signs Temp Pulse Resp BP Pulse Ox O2 Del Method 98.0 F 68 16 136/79 H 96 Room Air 09/22/22 09:45 09/22/22 09:45 09/22/22 09:45 09/22/22 09:45 09/22/22 09:59 09/22/22 09:59 Oxygen Delivery Method Room Air Weight: 122 lb 2.177 oz Body Mass Index (BMI) 22.3 Intake & Output: Intake and Output for Last 24 Hours 09/20/22 09/21/22 09/22/22 23:59 23:59 23:59 Intake Total 2698.75 / 2818.75 4596.63 / 4596.63 2577.5 / 2577.5 Output Total 200 / 350 150 / 150 Balance 2498.75 / 2468.75 4446.63 / 4446.63 2577.5 / 2577.5 Medical Nutrition Assessment Dietitian: Malnutrition Criteria Met Start: 09/16/22 14:13 Freq: Status: Active Protocol: Document 09/20/22 14:55 RMA (Rec: 09/20/22 14:55 RMA [id number]) Nutrition Malnutrition Evidence of Malnutrition Exists Yes Malnutrition (severe): Acute Illness/Injury Evidenced By Suboptimal Energy Intake ( Severe),Weight Loss (Severe), Physical Changes (Severe) Clinical Problem Acute Disease or Injury Related Malnutrition Etiology severe, acute malnutrition related to inadequate energy intake d/t GI dysfunction Signs/Symptoms as evidenced by unintentional 45#/27% wt loss < 1 month; estimated PO intake meeting < 50% of estimated energy needs >5 days; severe muscle wasting /fat loss per physical exam Status Active Problem Recommendation Dietitian Recommendations/Changes Recommend advance diet as tolerated to regular/fat restricted. Will d/c 8oz ensure clear w/ meals and d/c ensure clear with medpass. Will add 120 ml ensure plus high protein TID w/ meals for tolerance. Adjust ONS as needed to optimize oral intake at meals and promote weight gain. Lab / Micro Data Result Diagrams: 09/22/22 06:46 09/22/22 06:46 Labs: Laboratory Results - last 24 hr 09/21/22 11:10: POC Glucose 143 H 09/21/22 16:57: POC Glucose 163 H 09/21/22 21:38: POC Glucose 156 H 09/22/22 06:44: POC Glucose 188 H 09/22/22 06:46: WBC 8.0, RBC 2.83 L, Hgb 8.1 L, Hct 25.5 L, MCV 90.1, MCH 28.6, MCHC 31.8 L, RDW Std Deviation 42.4, RDW Coeff of Fili 12.8, Plt Count 221, MPV 10.2, Immature Gran % (Auto) 1.000 H, Neut % (Auto) 78.7 H, Lymph % (Auto) 11.7 L, [place] % (Auto) 8.0, Eos % (Auto) 0.5, Baso % (Auto) 0.1, Absolute Neuts (auto) 6.3, Absolute Lymphs (auto) 0.93, Nucleated RBC % 0, Differential Comment SCANNED, ESR 28 H 09/22/22 06:46: Sodium 137, Potassium 3.4 L, Chloride 109 H, Carbon Dioxide 19.0 L, Anion Gap 9, BUN 7, Creatinine 0.60 L, Estim Creat Clear Calc 107.43, Est GFR (MDRD) Af Amer 179, Est GFR (MDRD) Non-Af 148, BUN/Creatinine Ratio 11.7, Glucose 203 H, Calcium 7.6 L, Total Bilirubin 0.80, AST 153 H, ALT 67 H, Alkaline Phosphatase 475 H, C-React Prot Ext Range 130.00 H, Total Protein 5.4 L, Albumin 2.0 L, Globulin 3.4, Albumin/Globulin Ratio 0.6 L 09/22/22 06:46: APTT 60.3 H Micro: Microbiology 09/15/22 21:55 Blood Culture (Wb) - Right Forearm Blood Culture - Final No growth in 5 days. 09/15/22 21:44 Blood Culture (Wb) - Anticubital Right Blood Culture - Final No growth in 5 days. Physical Exam Const Constitutional Narrative: Oriented to person and place, but does require redirection Resp Resp Narrative: Unlabored breathing GI GI Narrative: Distended abdomen with focal tenderness to the epigastrium described as mild in intensity. Otherwise nontender. Assessment & Plan Assessment/Plan (1) Pancreatitis: QUALIFIERS: Chronicity: acute Pancreatitis type: unspecified pancreatitis type Acute pancreatitis complication: no infection or necrosis Qualified Code(s): K85.90 - Acute pancreatitis without necrosis or infection, unspecified PLAN: This is a 56-year-old male, who appears clinically older than stated age, currently under treatment for diagnosis of pancreatic necrosis with pseudocyst. Patient reports stable p.o. tolerance, regular bowel function, and further decreased pain. Patient is somewhat confused today and I have raised the blinds encouraging him to be out of bed as much as possible to avoid acute delirium. Patient appears adequately resuscitated and I believe it is time to now decrease IV fluid resuscitation while continuing to encourage p.o. intake. Per GI, EGD yesterday did not find any cause for concern regarding gastric outlet obstruction secondary to extrinsic compression from the pseudocyst. ? Decrease IV fluid resuscitation to no more than 1 times maintenance ? Obtain daily weights ? Try for more strict ins and outs accounting ? Recommending discontinuation of antibiotics if no further clinical concerns for infected pancreatic necrosis (patient's presenting leukocytosis is expected with acute pancreatitis sans infection) (2) Pancreatic pseudocyst: Charges/Coding Visit Charges Inpatient E&M: 21385 Subs Hosp L2
[2022-09-22] MEDS: Potassium Chloride Oral Tablet 20 MEQ 40 MEQ PO (11:21)
[2022-09-22 11:30] LABS: Bedside Glucose 143 mg/dL (74-106)
[2022-09-22] MEDS: HEPARIN/D5w 25,000 UNITS 25,000 UNITS/250 ML IV.SOLN. 8 UNITS CONT INF (13:18)
[2022-09-22 17:15] LABS: Bedside Glucose 176 mg/dL (74-106)
[2022-09-22] MEDS: Atorvastatin Calcium 40 MG Tablet PO (21:06)
[2022-09-22] MEDS: MELATONIN 10 MG TABLET PO (21:06)
[2022-09-22] MEDS: Propranolol 10 MG Tablet 20 MG PO (21:16)
[2022-09-22] MEDS: traZODone 100 MG Tablet PO (21:16)
[2022-09-22] MEDS: 0.9% Normal Saline 1,000 ML 50 ML IV (21:24)
[2022-09-22 23:00] LABS: Bedside Glucose 157 mg/dL (74-106)
[2022-09-23] VITALS (12 sets, daily range): BP systolic 120–154; BP diastolic 56–78; PULSE 57–77; RESP 18–20; TEMP 36.5–37.1; O2SAT 96–100
[2022-09-23] MEDS: Lactulose 20 GM/30 ML UDC PO ×2 (05:55→14:08)
[2022-09-23] MEDS: Propranolol 10 MG Tablet 20 MG PO ×2 (05:55→14:08)
[2022-09-23] MEDS: methIMAzole 10 MG TABLET 20 MG PO ×2 (05:56→14:08)
[2022-09-23] MEDS: Acetaminophen 500 MG Tablet PO ×3 (05:57→20:53)
[2022-09-23] MEDS: Metoclopramide 5 MG TABLET PO ×3 (06:00→17:14)
[2022-09-23 06:01] LABS: Absolute Lymphocyte Count 1.12 X10^3/uL (0.83-4.51); Absolute Neutrophil Count 7.4 X10^3/uL (2.0-7.7); Basophil# 0.01 X10^3/uL; Basophil% 0.1 % (0-1); Eosinophil# 0.07 X10^3/uL; Eosinophils% 0.8 % (0-5); Hematocrit 25.5 % (40-54); Hemoglobin 8.2 g/dL (13.0-16.5); Lymphocyte # 1.12 X10^3/ul (0.83-4.51); Lymphocyte % 12.1 % (19-41); Mean Corp Hgb Conc 32.2 g/dL (32-36); Mean Corpuscular Hgb 29.1 pg (27.0-32.0); Mean Corpuscular Volume 90.4 fL (80-94); Mean Platelet Vol. 9.8 fl (6.2-12.0); Monocyte% 6.5 % (0-10); NRBC Flagged by Analyzer 0 % (0-5); Neutrophil # 7.38 X10^3/uL (2.7-7.7); Neutrophil % 79.4 % (47-70); Platelet Count 227 K/mm3 (150-450); RBC Distribution Width SD 43.1 fl (35.1-43.9); Red Blood Count 2.82 M/mm3 (4.6-6.2); White Blood Count 9.3 K/mm3 (4.4-11.0)
[2022-09-23] MEDS: Insulin Lispro 100 UNIT/ML INSULN.PEN SC ×4 (06:02→20:56)
[2022-09-23 06:38] LABS: ALB/GLOB Ratio 0.7 RATIO (0.9-2.4); AST(SGOT) 64 U/L (15-37); Alanine Aminotransfer ALT/SGPT 55 U/L (16-61); Albumin, Serum 2.3 g/dL (3.2-5.0); Alkaline Phosphatase 428 U/L (45-117); Anion Gap 4 (5-15); BUN 6 mg/dL (7-18); BUN/Creat Ratio 10.5 RATIO (10-20); Calcium,Total 7.6 mg/dL (8.5-10.1); Chloride 110 mmol/L (98-107); Creatinine, Serum 0.57 mg/dL (0.70-1.30); EST Glomerular Filtration Rate 156 mL/min (>60); Est Glom Filt Rate - Afr Amer 189 mL/min (>60); Estimated Creatinine Clearance 113.08 ml/min; Globulin 3.2 g/dL (2.2-4.2); Glucose 171 mg/dL (74-106); Potassium 3.5 mmol/L (3.5-5.1); Protein, Total 5.5 g/dL (6.4-8.2); Sodium Level 136 mmol/L (136-145); T4 Free Direct 0.99 ng/dL (0.76-1.46); Thyroid Stim Hormone (TSH) < 0.01 uIU/mL (0.358-3.74)
[2022-09-23 06:55] LABS: Bedside Glucose 174 mg/dL (74-106)
[2022-09-23 08:08] LABS: Free T3 0.9 pg/mL (2.18-3.98)
[2022-09-23] MEDS: Sertraline 100 MG Tablet PO (08:47)
[2022-09-23] MEDS: Pantoprazole Sodium 40 MG Tablet PO (08:47)
[2022-09-23] MEDS: Aspirin 81 MG TAB.CHEW PO (08:47)
[2022-09-23] MEDS: Creon 12,000 unit DR CapSULE 2 CAP PO ×3 (08:47→17:14)
[2022-09-23] MEDS: rifAXIMin 550 MG Tablet PO ×2 (08:48→20:53)
[2022-09-23] MEDS: Albumin Human 25% (100 mL) 25 GM/100 ML BAG IV ×2 (08:52→20:42)
[2022-09-23] MEDS: 0.9% Saline Lock 10 ML Syringe IV (08:52)
--- NOTE | 2022-09-23 09:25 | PN.SURG_ITS ---
Subjective Subjective Patient seen and examined during AM rounds. He appears somewhat disoriented, but appropriately answers questions. He states that overall he is feeling better little by little and believes the medications he is receiving are helping. He is still working to advance his diet tolerance and estimates that he is taking about 50% of his trays only some of the time. Objective Data Objective Data Vital Signs: Vital Signs Temp Pulse Resp BP Pulse Ox O2 Del Method 98.0 F 57 L 18 120/56 L 100 Room Air 09/23/22 09:00 09/23/22 09:00 09/23/22 09:00 09/23/22 09:00 09/23/22 09:00 09/23/22 09:00 Oxygen Delivery Method Room Air Weight: 151 lb 10.848 oz Body Mass Index (BMI) 22.3 Intake & Output: Intake and Output for Last 24 Hours 09/21/22 09/22/22 09/23/22 23:59 23:59 23:59 Intake Total 4596.63 / 4596.63 4429.40 / 4789.40 720 / 720 Output Total 150 / 150 Balance 4446.63 / 4446.63 4429.40 / 4789.40 720 / 720 Medical Nutrition Assessment Dietitian: Malnutrition Criteria Met Start: 09/16/22 14:13 Freq: Status: Active Protocol: Document 09/20/22 14:55 RMA (Rec: 09/20/22 14:55 RMA [id number]) Nutrition Malnutrition Evidence of Malnutrition Exists Yes Malnutrition (severe): Acute Illness/Injury Evidenced By Suboptimal Energy Intake ( Severe),Weight Loss (Severe), Physical Changes (Severe) Clinical Problem Acute Disease or Injury Related Malnutrition Etiology severe, acute malnutrition related to inadequate energy intake d/t GI dysfunction Signs/Symptoms as evidenced by unintentional 45#/27% wt loss < 1 month; estimated PO intake meeting < 50% of estimated energy needs >5 days; severe muscle wasting /fat loss per physical exam Status Active Problem Recommendation Dietitian Recommendations/Changes Recommend advance diet as tolerated to regular/fat restricted. Will d/c 8oz ensure clear w/ meals and d/c ensure clear with medpass. Will add 120 ml ensure plus high protein TID w/ meals for tolerance. Adjust ONS as needed to optimize oral intake at meals and promote weight gain. Lab / Micro Data Result Diagrams: 09/23/22 05:45 09/23/22 05:45 Labs: Laboratory Results - last 24 hr 09/22/22 11:04: POC Glucose 143 H 09/22/22 16:33: POC Glucose 176 H 09/22/22 21:15: POC Glucose 157 H 09/23/22 05:45: WBC 9.3, RBC 2.82 L, Hgb 8.2 L, Hct 25.5 L, MCV 90.4, MCH 29.1, MCHC 32.2, RDW Std Deviation 43.1, RDW Coeff of Fili 13.0, Plt Count 227, MPV 9.8, Immature Gran % (Auto) 1.100 H, Neut % (Auto) 79.4 H, Lymph % (Auto) 12.1 L , [place] % (Auto) 6.5, Eos % (Auto) 0.8, Baso % (Auto) 0.1, Absolute Neuts (auto) 7.4, Absolute Lymphs (auto) 1.12, Nucleated RBC % 0 09/23/22 05:45: Sodium 136, Potassium 3.5, Chloride 110 H, Carbon Dioxide 22.0, Anion Gap 4 L, BUN 6 L, Creatinine 0.57 L, Estim Creat Clear Calc 113.08, Est GFR (MDRD) Af Amer 189, Est GFR (MDRD) Non-Af 156, BUN/Creatinine Ratio 10.5, Glucose 171 H, Calcium 7.6 L, Total Bilirubin 0.70, AST 64 H, ALT 55, Alkaline Phosphatase 428 H, C-React Prot Ext Range 118.00 H, Total Protein 5.5 L, Albumin 2.3 L, Globulin 3.2, Albumin/Globulin Ratio 0.7 L, TSH < 0.01 L, Free T4 0.99, Free T3 pg/dL 0.9 L 09/23/22 05:45: APTT 64.0 H 09/23/22 05:45: Ammonia 22.0 09/23/22 06:02: POC Glucose 174 H Micro: Microbiology 09/15/22 21:55 Blood Culture (Wb) - Right Forearm Blood Culture - Final No growth in 5 days. 09/15/22 21:44 Blood Culture (Wb) - Anticubital Right Blood Culture - Final No growth in 5 days. Physical Exam Const no apparent distress Resp normal respiratory effort GI GI Narrative: Mildly distended/protuberant abdomen, soft, mildly tender to palpation over the epigastrium Extremity Extremity Narrative: Extensive pitting edema General Extremity: edema bilateral lower extremity Assessment & Plan Assessment/Plan (1) Pancreatitis: QUALIFIERS: Chronicity: acute Pancreatitis type: unspecified pancreatitis type Acute pancreatitis complication: no infection or necrosis Qualified Code(s): K85.90 - Acute pancreatitis without necrosis or infection, unspecified PLAN: This is a 56-year-old male, who appears clinically older than stated age, currently under treatment for diagnosis of pancreatic necrosis with pseudocyst. Patient reports slightly improved p.o. tolerance, regular bowel function, and further decreased pain. Patient remains somewhat confused today and I have raised the blinds encouraging him to be out of bed as much as possible to avoid acute delirium. I also discussed with nursing the need to try to reestablish a diurnal cycle and place the patient out of bed in a chair for much of the day today. Patient appears volume overloaded with pitting edema and today's weight shows that he is up 29 pounds over his admit weight. Further his BUN and creatinine are quite low. Recommend further scaling back on IV fluids and consider beginning diuresis. ? Further decrease IV fluid resuscitation?could consider half maintenance and omission of albumin ? Consider gentle diuresis ? Continue to trend daily weights ? Try for more strict ins and outs accounting (2) Pancreatic pseudocyst: Charges/Coding Visit Charges Inpatient E&M: 72573 Subs Hosp L2
[2022-09-23 11:55] LABS: Bedside Glucose 204 mg/dL (74-106)
--- NOTE | 2022-09-23 16:24 | PCM.PROGNOTE ---
Subjective Subjective He denies any chest pain or shortness of breath.? He still complains of a little bit of abdominal pain in the epigastric region.? Objective Data Objective Data Vital Signs: Vital Signs Temp Pulse Resp BP Pulse Ox O2 Del Method 97.9 F 70 18 154/74 H 96 Room Air 09/23/22 14:57 09/23/22 14:57 09/23/22 14:57 09/23/22 14:57 09/23/22 15:42 09/23/22 14:57 Oxygen Delivery Method Room Air Weight: 151 lb 10.848 oz Body Mass Index (BMI) 22.3 Intake & Output: Intake and Output for Last 24 Hours 09/21/22 09/22/22 09/23/22 23:59 23:59 23:59 Intake Total 4596.63 / 4596.63 4429.40 / 4789.40 820 / 820 Output Total 150 / 150 Balance 4446.63 / 4446.63 4429.40 / 4789.40 820 / 820 Medical Nutrition Assessment Dietitian: Malnutrition Criteria Met Start: 09/16/22 14:13 Freq: Status: Active Protocol: Document 09/20/22 14:55 RMA (Rec: 09/20/22 14:55 RMA [id number]) Nutrition Malnutrition Evidence of Malnutrition Exists Yes Malnutrition (severe): Acute Illness/Injury Evidenced By Suboptimal Energy Intake ( Severe),Weight Loss (Severe), Physical Changes (Severe) Clinical Problem Acute Disease or Injury Related Malnutrition Etiology severe, acute malnutrition related to inadequate energy intake d/t GI dysfunction Signs/Symptoms as evidenced by unintentional 45#/27% wt loss < 1 month; estimated PO intake meeting < 50% of estimated energy needs >5 days; severe muscle wasting /fat loss per physical exam Status Active Problem Recommendation Dietitian Recommendations/Changes Recommend advance diet as tolerated to regular/fat restricted. Will d/c 8oz ensure clear w/ meals and d/c ensure clear with medpass. Will add 120 ml ensure plus high protein TID w/ meals for tolerance. Adjust ONS as needed to optimize oral intake at meals and promote weight gain. Lab / Micro Data Result Diagrams: 09/23/22 05:45 09/23/22 05:45 Labs: Laboratory Results - last 24 hr 09/22/22 16:33: POC Glucose 176 H 09/22/22 21:15: POC Glucose 157 H 09/23/22 05:45: WBC 9.3, RBC 2.82 L, Hgb 8.2 L, Hct 25.5 L, MCV 90.4, MCH 29.1, MCHC 32.2, RDW Std Deviation 43.1, RDW Coeff of Fili 13.0, Plt Count 227, MPV 9.8, Immature Gran % (Auto) 1.100 H, Neut % (Auto) 79.4 H, Lymph % (Auto) 12.1 L, [place] % (Auto) 6.5, Eos % (Auto) 0.8, Baso % (Auto) 0.1, Absolute Neuts (auto) 7.4, Absolute Lymphs (auto) 1.12, Nucleated RBC % 0 09/23/22 05:45: Sodium 136, Potassium 3.5, Chloride 110 H, Carbon Dioxide 22.0, Anion Gap 4 L, BUN 6 L, Creatinine 0.57 L, Estim Creat Clear Calc 113.08, Est GFR (MDRD) Af Amer 189, Est GFR (MDRD) Non-Af 156, BUN/Creatinine Ratio 10.5, Glucose 171 H, Calcium 7.6 L, Total Bilirubin 0.70, AST 64 H, ALT 55, Alkaline Phosphatase 428 H, C-React Prot Ext Range 118.00 H, Total Protein 5.5 L, Albumin 2.3 L, Globulin 3.2, Albumin/Globulin Ratio 0.7 L, TSH < 0.01 L, Free T4 0.99, Free T3 pg/dL 0.9 L 09/23/22 05:45: APTT 64.0 H 09/23/22 05:45: Ammonia 22.0 09/23/22 06:02: POC Glucose 174 H 09/23/22 11:23: POC Glucose 204 H Micro: Microbiology 09/15/22 21:55 Blood Culture (Wb) - Right Forearm Blood Culture - Final No growth in 5 days. 09/15/22 21:44 Blood Culture (Wb) - Anticubital Right Blood Culture - Final No growth in 5 days. Physical Exam Const no apparent distress Resp normal respiratory effort GI GI Narrative: Mildly distended/protuberant abdomen, soft, mildly tender to palpation over the epigastrium Extremity Extremity Narrative: Extensive pitting edema General Extremity: edema bilateral lower extremity Assessment & Plan Assessment/Plan (1) Portal vein thrombosis: PLAN: CTA :?Redemonstration of enlarged and inflamed pancreas with multiple areas of necrosis. There are multiple acute necrotic collections, one of which is within the head/neck of the pancreas and is stable in size. There are several peripancreatic acute necrotic collections throughout the retroperitoneum as well as the right pararenal space which have slightly increased in size when compared to prior 3 days ago. For example, a 2.2 x 3.3 cm collection in the right lower abdominal quadrant (image 120, series 2), previously measuring 1.6 x 2.7 cm. Continue current management with anticoagulation. His hemoglobin seems stable at this time.?There were no signs of hemorrhagic pancreatitis seen on imaging continue anticoagulation. His hemoglobin is 8.2. (2) Pancreatitis: Severe idiopathic pancreatitis with possible pancreatic necrosis in the setting of possible chronic pancreatitis or acute recurrent pancreatitis with pseudocyst formation.? Awaiting repeat CT scan of the abdomen pelvis.? Repeat ESR, CRP, amylase, lipase, lactate, LDH.? Continue Reglan therapy.? Encourage protein supplementation.I am okay with decreasing his fluid intake. (2) Encephalopathy: PLAN: Metabolic encephalopathy from an unknown source at this time. He is a little more coherent at this time. (3) Pancreatitis: QUALIFIERS: Acute pancreatitis complication: no infection or necrosis Chronicity: acute Pancreatitis type: unspecified pancreatitis type Qualified Code(s): K85.90 - Acute pancreatitis without necrosis or infection, unspecified PLAN: Severe idiopathic pancreatitis with possible pancreatic necrosis in the setting of possible chronic pancreatitis or acute recurrent pancreatitis with pseudocyst formation. No plan for surgery at this time. Appreciate surgical assistance. (4) Pancreatic pseudocyst: Charges/Coding Visit Charges Inpatient E&M: 61213 Subs Hosp L3
[2022-09-23] MEDS: 0.9% Normal Saline 1,000 ML 50 ML IV (17:12)
--- NOTE | 2022-09-23 17:16 | PN.HOSP_ITS ---
Subjective Subjective Resting comfortably in bed this morning, remains confused but continues to endorse abdomen is improving Objective Data Objective Data Vital Signs: Vital Signs Temp Pulse Resp BP Pulse Ox O2 Del Method 97.9 F 77 18 154/74 H 96 Room Air 09/23/22 14:57 09/23/22 16:32 09/23/22 14:57 09/23/22 14:57 09/23/22 15:42 09/23/22 14:57 Oxygen Delivery Method Room Air Weight: 68.8 kg Body Mass Index (BMI) 22.3 Intake & Output: Intake and Output for Last 24 Hours 09/21/22 09/22/22 09/23/22 23:59 23:59 23:59 Intake Total 4596.63 / 4596.63 4429.40 / 4789.40 820 / 820 Output Total 150 / 150 Balance 4446.63 / 4446.63 4429.40 / 4789.40 820 / 820 Medical Nutrition Assessment Dietitian: Malnutrition Criteria Met Start: 09/16/22 14:13 Freq: Status: Active Protocol: Document 09/20/22 14:55 RMA (Rec: 09/20/22 14:55 RMA [id number]) Nutrition Malnutrition Evidence of Malnutrition Exists Yes Malnutrition (severe): Acute Illness/Injury Evidenced By Suboptimal Energy Intake ( Severe),Weight Loss (Severe), Physical Changes (Severe) Clinical Problem Acute Disease or Injury Related Malnutrition Etiology severe, acute malnutrition related to inadequate energy intake d/t GI dysfunction Signs/Symptoms as evidenced by unintentional 45#/27% wt loss < 1 month; estimated PO intake meeting < 50% of estimated energy needs >5 days; severe muscle wasting /fat loss per physical exam Status Active Problem Recommendation Dietitian Recommendations/Changes Recommend advance diet as tolerated to regular/fat restricted. Will d/c 8oz ensure clear w/ meals and d/c ensure clear with medpass. Will add 120 ml ensure plus high protein TID w/ meals for tolerance. Adjust ONS as needed to optimize oral intake at meals and promote weight gain. Lab / Micro Data Result Diagrams: 09/23/22 05:45 09/23/22 05:45 Labs: Laboratory Results - last 24 hr 09/22/22 21:15: POC Glucose 157 H 09/23/22 05:45: WBC 9.3, RBC 2.82 L, Hgb 8.2 L, Hct 25.5 L, MCV 90.4, MCH 29.1, MCHC 32.2, RDW Std Deviation 43.1, RDW Coeff of Fili 13.0, Plt Count 227, MPV 9.8, Immature Gran % (Auto) 1.100 H, Neut % (Auto) 79.4 H, Lymph % (Auto) 12.1 L , [place] % (Auto) 6.5, Eos % (Auto) 0.8, Baso % (Auto) 0.1, Absolute Neuts (auto) 7.4, Absolute Lymphs (auto) 1.12, Nucleated RBC % 0 09/23/22 05:45: Sodium 136, Potassium 3.5, Chloride 110 H, Carbon Dioxide 22.0, Anion Gap 4 L, BUN 6 L, Creatinine 0.57 L, Estim Creat Clear Calc 113.08, Est GFR (MDRD) Af Amer 189, Est GFR (MDRD) Non-Af 156, BUN/Creatinine Ratio 10.5, Gl ucose 171 H, Calcium 7.6 L, Total Bilirubin 0.70, AST 64 H, ALT 55, Alkaline Phosphatase 428 H, C-React Prot Ext Range 118.00 H, Total Protein 5.5 L, Albumin 2.3 L, Globulin 3.2, Albumin/Globulin Ratio 0.7 L, TSH < 0.01 L, Free T4 0.99, Free T3 pg/dL 0.9 L 09/23/22 05:45: APTT 64.0 H 09/23/22 05:45: Ammonia 22.0 09/23/22 06:02: POC Glucose 174 H 09/23/22 11:23: POC Glucose 204 H Micro: Microbiology 09/15/22 21:55 Blood Culture (Wb) - Right Forearm Blood Culture - Final No growth in 5 days. 09/15/22 21:44 Blood Culture (Wb) - Anticubital Right Blood Culture - Final No growth in 5 days. Physical Exam Const Constitutional Narrative: Pleasantly confused HEENT normocephalic and head/scalp atraumatic Eyes Eyes Narrative: EOM grossly intact Neck supple Resp normal respiratory effort and clear to auscultation bilaterally Cardio regular rate and regular rhythm GI soft to palpation GI Narrative: Minimal tenderness, no rebound, guarding, rigidity Extremity Extremity Narrative: No edema appreciated Neuro moves all extremities Neuro Narrative: No overt focal deficits appreciated Psych Psych Narrative: Cooperative Assessment & Plan Assessment/Plan (1) Pancreatitis: QUALIFIERS: Chronicity: acute Pancreatitis type: unspecified pancreatitis type Acute pancreatitis complication: no infection or necrosis Qualified Code(s): K85.90 - Acute pancreatitis without necrosis or infection, unspecified (2) Hyperthyroidism: (3) Abnormal EKG: (4) Hyperkalemia: (5) Pancreatic pseudocyst: (6) Weight loss: (7) Encephalopathy: PLAN: Plan #Acute pancreatitis MRCP showed 6.6 cm pseudocyst involving head and uncinate process of the pancreas and there was pancreatic edema consistent with acute pancreatitis involving the evert hepatis and hepatoduodenal ligament Pain is improving slowly tolerating p.o. GI following and obtained repeat CT which read as the 6 cm pseudocyst versus abscess with worsening phlegmon extending into the evert hepatis and retroperitoneum and a portal vein thrombus. Discussed with GI, he is on Merrem On heparin drip, short acting agent given to monitor the risk for hemorrhagic transformation Ensure clear 3 times daily Pain control 09/19: Still some tenderness, on fluids and Merrem. White blood cell count has normalized. Has had 2 contrasted [address]s and want to avoid overuse but pending progress/clinical status tomorrow we will consider repeating CT with contrast for reevaluation 09/20: CTA obtained this morning resulted this evening, CT reported inadequate opacification of the portal venous system so unable to assess for thrombosis but it does redemonstrate what it reports is acute necrotic pancreatitis with increased size of peripancreatic acute necrotic collections extending inferiorly throughout the retroperitoneum and involving the right pararenal space and evert hepatis. Discussed with GI recs were to increase the fluids, add albumin, check lactate, and also for a surgery consult to be placed as well as an order for PICC as he may likely need TPN. We will continue Merrem. Will trend ESR and CRP as they are elevated. Of note his white count has improved and returned to normal, afebrile and vitals have remained stable. 09/21: EGD performed today by Dr. Magdaleno and showed esophagitis and nonbleeding duodenal ulcer but no varices. Also was evaluated by surgery today and given the fact that he has decreased pain surgery does not feel there needs to be any acute intervention. If intervention does need to be performed may need to be transferred to tertiary facility. Surgery also said to consider discontinuation of antibiotics if there is no clinical evidence of infected pancreatic necrosis. He did have white count of 25,000 prior to meropenem being started and it did improve white count from there, still given current status improvement will consider discontinuing 09/22: Abdomen continues to improve, does have a bump in LFTs and ALP today but all inflammatory markers are downtrending. Given improvement in clinical status hopefully will be able to avoid surgery, GI following 09/23: Pain continues to improve. Was cut back on fluids yesterday to 50, closely monitor fluid status and try for more strict I's and O's to assess for further fluid management #Portal vein thrombosis On heparin drip, discussed with GI and they recommended short acting agent for 72 hours to monitor for hemorrhagic conversion prior to long-acting agent. Hemoglobin has remained stable #Change in mental status reports he is not close to baseline, seems to be waxing and waning Ammonia is not elevated, only 19 at this time Was hyponatremic on admission and this has gradually been improving Suspect there could be hypoactive delirium Melatonin nightly, will try nonpharmacologic management first but can consider small dose of Abilify if compatible with other medications if he remains unchanged We will also decrease bedtime trazodone dose in the event that this is contributing ESR and CRP also ordered 09/20/2022: Has seemed more awake and conversational though still somewhat confused, trending ESR and CRP 09/22: Confused, will attempt to reach out to his contemporary or modern dancer regarding his medications 09/23: Spoke with his contemporary or modern dancer, medications likely not the cause of confusion but he was agreeable to stopping propranolol as he is no longer in thyroid storm sensitive free T4 and T3 are within normal limits can cut methimazole back to 30, free T4 within normal limits and free T3 actually low so change will be made for tomorrow. If he does not begin to improve may get head CT and EEG but given comorbidities and clinical status very likely may just be delirium, encourage nonpharmacologic measures #Hypothyroidism Had recent hospitalization at [facility] for thyroid storm Continue methimazole, this dosage was increased on admission due to TSH less than 0.01 and free T4 of 2.6 09/23: Spoke with his contemporary or modern dancer yesterday, checked labs, DC'd propranolol and decrease methimazole accordingly #Abnormal EKG Planning on seeing cardiology as an outpatient Echo obtained and EF 55 to 60% with overall normal LV systolic function #DVT ppx: On heparin drip Elizabeth Roger MD Charges/Coding Visit Charges Inpatient E&M: 50716 Subs Hosp L2
[2022-09-23 17:41] LABS: Bedside Glucose 172 mg/dL (74-106)
[2022-09-23] MEDS: HEPARIN/D5w 25,000 UNITS 25,000 UNITS/250 ML IV.SOLN. 8 UNITS CONT INF (20:41)
[2022-09-23] MEDS: oxyCODONE 5 MG Tablet PO (20:53)
[2022-09-23] MEDS: MELATONIN 10 MG TABLET PO (20:53)
[2022-09-23] MEDS: traZODone 100 MG Tablet PO (22:31)
[2022-09-24] VITALS (13 sets, daily range): BP systolic 146–175; BP diastolic 76–97; PULSE 65–84; RESP 14–18; TEMP 36.6–36.9; O2SAT 96–100
[2022-09-24] MEDS: Atorvastatin Calcium 40 MG Tablet PO (00:17)
[2022-09-24] MEDS: Lactulose 20 GM/30 ML UDC PO ×5 (00:17→20:55)
[2022-09-24 01:05] LABS: Bedside Glucose 160 mg/dL (74-106)
[2022-09-24] MEDS: Acetaminophen 500 MG Tablet PO ×3 (06:33→20:53)
[2022-09-24] MEDS: Metoclopramide 5 MG TABLET PO ×3 (06:33→16:50)
[2022-09-24] MEDS: 0.9% Saline Lock 10 ML Syringe IV (06:33)
[2022-09-24] MEDS: Ondansetron 4 MG/2 ML Vial IV (06:33)
[2022-09-24] MEDS: Insulin Lispro 100 UNIT/ML INSULN.PEN SC ×4 (06:41→22:17)
[2022-09-24 07:08] LABS: Absolute Lymphocyte Count 1.14 X10^3/uL (0.83-4.51); Absolute Neutrophil Count 7.4 X10^3/uL (2.0-7.7); Basophil# 0.01 X10^3/uL; Basophil% 0.1 % (0-1); Eosinophil# 0.09 X10^3/uL; Hematocrit 29.7 % (40-54); Lymphocyte # 1.14 X10^3/ul (0.83-4.51); Lymphocyte % 12.2 % (19-41); Mean Corp Hgb Conc 30.3 g/dL (32-36); Mean Corpuscular Hgb 27.6 pg (27.0-32.0); Mean Corpuscular Volume 91.1 fL (80-94); Mean Platelet Vol. 10.3 fl (6.2-12.0); Monocyte# 0.56 X10^3/uL; NRBC Flagged by Analyzer 0.2 % (0-5); Neutrophil # 7.43 X10^3/uL (2.7-7.7); Neutrophil % 79.5 % (47-70); Platelet Count 239 K/mm3 (150-450); RBC Distribution Width CV 13.2 % (11.6-14.6); Red Blood Count 3.26 M/mm3 (4.6-6.2); White Blood Count 9.3 K/mm3 (4.4-11.0)
[2022-09-24 07:40] LABS: Bedside Glucose 171 mg/dL (74-106)
[2022-09-24 07:45] LABS: ALB/GLOB Ratio 0.8 RATIO (0.9-2.4); AST(SGOT) 167 U/L (15-37); Alanine Aminotransfer ALT/SGPT 75 U/L (16-61); Albumin, Serum 2.8 g/dL (3.2-5.0); Alkaline Phosphatase 760 U/L (45-117); Anion Gap 7 (5-15); BUN 4 mg/dL (7-18); BUN/Creat Ratio 5.9 RATIO (10-20); Calcium,Total 7.8 mg/dL (8.5-10.1); Chloride 107 mmol/L (98-107); Creatinine, Serum 0.68 mg/dL (0.70-1.30); EST Glomerular Filtration Rate 128 mL/min (>60); Est Glom Filt Rate - Afr Amer 155 mL/min (>60); Estimated Creatinine Clearance 94.79 ml/min; Globulin 3.4 g/dL (2.2-4.2); Glucose 184 mg/dL (74-106); Potassium 3.1 mmol/L (3.5-5.1); Protein, Total 6.2 g/dL (6.4-8.2); Sodium Level 135 mmol/L (136-145)
--- NOTE | 2022-09-24 10:03 | NURSING ---
called for update on patient. Informed of patient's status. stated she will not be in today to see patient.
--- NOTE | 2022-09-24 10:51 | PN.SURG_ITS ---
Subjective Subjective Patient seen and examined during AM rounds. He appears more lucid this morning. He reports that he continues to feel better. He states that most of his abdominal discomfort feels muscular. He reports ongoing bowel movements. He states that his oral intake is stable taking 1/4-1/2 of his trays. Objective Data Objective Data Vital Signs: Vital Signs Temp Pulse Resp BP Pulse Ox O2 Del Method 97.8 F 74 18 151/76 H 100 Room Air 09/24/22 06:14 09/24/22 07:46 09/24/22 06:14 09/24/22 06:14 09/24/22 06:14 09/24/22 06:14 Oxygen Delivery Method Room Air Weight: 153 lb 3.54 oz Body Mass Index (BMI) 22.3 Intake & Output: Intake and Output for Last 24 Hours 09/22/22 09/23/22 09/24/22 23:59 23:59 23:59 Intake Total 4429.40 / 4789.40 2581.67 / 2701.67 170 / 170 Output Total 300 / 300 Balance 4429.40 / 4789.40 2581.67 / 2701.67 -130 / -130 Medical Nutrition Assessment Dietitian: Malnutrition Criteria Met Start: 09/16/22 14:13 Freq: Status: Active Protocol: Document 09/20/22 14:55 RMA (Rec: 09/20/22 14:55 RMA [id number]) Nutrition Malnutrition Evidence of Malnutrition Exists Yes Malnutrition (severe): Acute Illness/Injury Evidenced By Suboptimal Energy Intake ( Severe),Weight Loss (Severe), Physical Changes (Severe) Clinical Problem Acute Disease or Injury Related Malnutrition Etiology severe, acute malnutrition related to inadequate energy intake d/t GI dysfunction Signs/Symptoms as evidenced by unintentional 45#/27% wt loss < 1 month; estimated PO intake meeting < 50% of estimated energy needs >5 days; severe muscle wasting /fat loss per physical exam Status Active Problem Recommendation Dietitian Recommendations/Changes Recommend advance diet as tolerated to regular/fat restricted. Will d/c 8oz ensure clear w/ meals and d/c ensure clear with medpass. Will add 120 ml ensure plus high protein TID w/ meals for tolerance. Adjust ONS as needed to optimize oral intake at meals and promote weight gain. Lab / Micro Data Result Diagrams: 09/24/22 06:25 09/24/22 06:25 Labs: Laboratory Results - last 24 hr 09/23/22 11:23: POC Glucose 204 H 09/23/22 17:11: POC Glucose 172 H 09/23/22 20:55: POC Glucose 160 H 09/24/22 06:25: WBC 9.3, RBC 3.26 L, Hgb 9.0 L, Hct 29.7 L, MCV 91.1, MCH 27.6, MCHC 30.3 L D, RDW Std Deviation 44.0 H, RDW Coeff of Fili 13.2, Plt Count 239, MPV 10.3, Immature Gran % (Auto) 1.200 H, Neut % (Auto) 79.5 H, Lymph % (Auto) 12.2 L, [place] % (Auto) 6.0, Eos % (Auto) 1.0, Baso % (Auto) 0.1, Absolute Neuts (auto) 7.4, Absolute Lymphs (auto) 1.14, Nucleated RBC % 0.2 09/24/22 06:25: Sodium 135 L, Potassium 3.1 L, Chloride 107, Carbon Dioxide 21.0 , Anion Gap 7, BUN 4 L, Creatinine 0.68 L, Estim Creat Clear Calc 94.79, Est GFR (MDRD) Af Amer 155, Est GFR (MDRD) Non-Af 128, BUN/Creatinine Ratio 5.9 L, Glucose 184 H, Calcium 7.8 L, Total Bilirubin 1.70 H, AST 167 H, ALT 75 H, Alkaline Phosphatase 760 H, C-React Prot Ext Range 117.00 H, Total Protein 6.2 L , Albumin 2.8 L, Globulin 3.4, Albumin/Globulin Ratio 0.8 L 09/24/22 06:40: POC Glucose 171 H Micro: Microbiology 09/15/22 21:55 Blood Culture (Wb) - Right Forearm Blood Culture - Final No growth in 5 days. 09/15/22 21:44 Blood Culture (Wb) - Anticubital Right Blood Culture - Final No growth in 5 days. Physical Exam Const oriented x3 and no apparent distress Resp normal respiratory effort GI GI Narrative: Distended, protuberant abdomen. Soft, mildly tender to palpation across the epigastrium. Stable contusions to the left lower quadrant. Extremity Extremity Narrative: Persistent pitting edema of lower extremities Assessment & Plan Assessment/Plan (1) Pancreatitis: QUALIFIERS: Acute pancreatitis complication: no infection or necrosis Chronicity: acute Pancreatitis type: unspecified pancreatitis type Qualified Code(s): K85.90 - Acute pancreatitis without necrosis or infection, unspecified PLAN: This is a 56-year-old male, who appears clinically older than stated age, currently under treatment for diagnosis of pancreatic necrosis with pseudocyst. Patient reports stable p.o. tolerance, regular bowel function, and further decreased pain. Patient more lucid today. Patient appears volume up still today with persistent pitting edema and his daily weight is up an additional 2 pounds. Further his BUN and creatinine remain quite low. Recommend further s caling back on IV fluids (KVO rate) and consider beginning diuresis. ? Further decrease IV fluid resuscitation ? Consider gentle diuresis ? Continue to trend daily weights ? Continue to encourage protein supplementation (2) Pancreatic pseudocyst: PLAN: Does not appear to be clinically impacting patient. Could be followed up as an outpatient for consideration of possible transgastric drainage. This would require referral to outside facility. Charges/Coding Visit Charges Inpatient E&M: 12068 Subs Hosp L2
[2022-09-24] MEDS: Albumin Human 25% (100 mL) 25 GM/100 ML BAG IV (11:08)
[2022-09-24] MEDS: methIMAzole 10 MG TABLET 30 MG PO (11:19)
[2022-09-24] MEDS: Creon 12,000 unit DR CapSULE 2 CAP PO ×3 (11:20→16:51)
[2022-09-24] MEDS: Ensure Clear 120 ML Liquid PO ×2 (11:20→20:52)
[2022-09-24] MEDS: Pantoprazole Sodium 40 MG Tablet PO (11:21)
[2022-09-24] MEDS: Aspirin 81 MG TAB.CHEW PO (11:21)
[2022-09-24] MEDS: rifAXIMin 550 MG Tablet PO ×2 (11:22→20:54)
[2022-09-24] MEDS: Sertraline 100 MG Tablet PO (11:22)
[2022-09-24] MEDS: amLODIPine 5 MG Tablet PO (11:23)
[2022-09-24 13:10] LABS: Bedside Glucose 212 mg/dL (74-106)
[2022-09-24] MEDS: 0.9% Normal Saline 1,000 ML 50 ML IV (14:20)
--- NOTE | 2022-09-24 16:09 | PCM.PN.HOSP ---
Subjective Subjective Patient does seem somewhat more awake and alert today, abdomen not feeling too bad, reports he is trying to increase his food intake, is developing some edema Objective Data Objective Data Vital Signs: Vital Signs Temp Pulse Resp BP Pulse Ox O2 Del Method 98.1 F 71 14 154/79 H 96 Room Air 09/24/22 12:27 09/24/22 14:50 09/24/22 12:27 09/24/22 12:27 09/24/22 13:25 09/24/22 14:20 Oxygen Delivery Method Room Air Weight: 69.5 kg Body Mass Index (BMI) 22.3 Intake & Output: Intake and Output for Last 24 Hours 09/22/22 09/23/22 09/24/22 23:59 23:59 23:59 Intake Total 4429.40 / 4789.40 2581.67 / 2701.67 1357.5 / 1357.5 Output Total 300 / 300 Balance 4429.40 / 4789.40 2581.67 / 2701.67 1057.5 / 1057.5 Medical Nutrition Assessment Dietitian: Malnutrition Criteria Met Start: 09/16/22 14:13 Freq: Status: Active Protocol: Document 09/20/22 14:55 RMA (Rec: 09/20/22 14:55 RMA [id number]) Nutrition Malnutrition Evidence of Malnutrition Exists Yes Malnutrition (severe): Acute Illness/Injury Evidenced By Suboptimal Energy Intake ( Severe),Weight Loss (Severe), Physical Changes (Severe) Clinical Problem Acute Disease or Injury Related Malnutrition Etiology severe, acute malnutrition related to inadequate energy intake d/t GI dysfunction Signs/Symptoms as evidenced by unintentional 45#/27% wt loss < 1 month; estimated PO intake meeting < 50% of estimated energy needs >5 days; severe muscle wasting /fat loss per physical exam Status Active Problem Recommendation Dietitian Recommendations/Changes Recommend advance diet as tolerated to regular/fat restricted. Will d/c 8oz ensure clear w/ meals and d/c ensure clear with medpass. Will add 120 ml ensure plus high protein TID w/ meals for tolerance. Adjust ONS as needed to optimize oral intake at meals and promote weight gain. Lab / Micro Data Result Diagrams: 09/24/22 06:25 09/24/22 06:25 Labs: Laboratory Results - last 24 hr 09/23/22 17:11: POC Glucose 172 H 09/23/22 20:55: POC Glucose 160 H 09/24/22 06:25: WBC 9.3, RBC 3.26 L, Hgb 9.0 L, Hct 29.7 L, MCV 91.1, MCH 27.6, MCHC 30.3 L D, RDW Std Deviation 44.0 H, RDW Coeff of Fili 13.2, Plt Count 239, MPV 10.3, Immature Gran % (Auto) 1.200 H, Neut % (Auto) 79.5 H, Lymph % (Auto) 12.2 L, [place] % (Auto) 6.0, Eos % (Auto) 1.0, Baso % (Auto) 0.1, Absolute Neuts (auto) 7.4, Absolute Lymphs (auto) 1.14, Nucleated RBC % 0.2 09/24/22 06:25: Sodium 135 L, Potassium 3.1 L, Chloride 107, Carbon Dioxide 21.0, Anion Gap 7, BUN 4 L, Creatinine 0.68 L, Estim Creat Clear Calc 94.79, Est GFR (MDRD) Af Amer 155, Est GFR (MDRD) Non-Af 128, BUN/Creatinine Ratio 5.9 L, Glucose 184 H, Calcium 7.8 L, Total Bilirubin 1.70 H, AST 167 H, ALT 75 H, Alkaline Phosphatase 760 H, C-React Prot Ext Range 117.00 H, Total Protein 6.2 L, Albumin 2.8 L, Globulin 3.4, Albumin/Globulin Ratio 0.8 L 09/24/22 06:40: POC Glucose 171 H 09/24/22 11:03: POC Glucose 212 H Micro: Microbiology 09/15/22 21:55 Blood Culture (Wb) - Right Forearm Blood Culture - Final No growth in 5 days. 09/15/22 21:44 Blood Culture (Wb) - Anticubital Right Blood Culture - Final No growth in 5 days. Physical Exam Const Constitutional Narrative: More awake and alert HEENT normocephalic and head/scalp atraumatic Eyes Eyes Narrative: EOM grossly intact Neck supple Resp normal respiratory effort and clear to auscultation bilaterally Cardio regular rate and regular rhythm GI GI Narrative: Somewhat full, nontender, no rebound or rigidity Extremity Extremity Narrative: Does have some peripheral edema developing Neuro moves all extremities Neuro Narrative: No overt focal deficits appreciated Psych Psych Narrative: Cooperative Assessment & Plan Assessment/Plan (1) Pancreatitis: QUALIFIERS: Acute pancreatitis complication: no infection or necrosis Chronicity: acute Pancreatitis type: unspecified pancreatitis type Qualified Code(s): K85.90 - Acute pancreatitis without necrosis or infection, unspecified (2) Hyperthyroidism: (3) Abnormal EKG: (4) Hyperkalemia: (5) Pancreatic pseudocyst: (6) Weight loss: (7) Encephalopathy: PLAN: Plan #Acute pancreatitis MRCP showed 6.6 cm pseudocyst involving head and uncinate process of the pancreas and there was pancreatic edema consistent with acute pancreatitis involving the evert hepatis and hepatoduodenal ligament Pain is improving slowly tolerating p.o. GI following and obtained repeat CT which read as the 6 cm pseudocyst versus abscess with worsening phlegmon extending into the evert hepatis and retroperitoneum and a portal vein thrombus. Discussed with GI, he is on Merrem On heparin drip, short acting agent given to monitor the risk for hemorrhagic transformation Ensure clear 3 times daily Pain control 09/19: Still some tenderness, on fluids and Merrem. White blood cell count has normalized. Has had 2 contrasted [address]s and want to avoid overuse but pending progress/clinical status tomorrow we will consider repeating CT with contrast for reevaluation 09/20: CTA obtained this morning resulted this evening, CT reported inadequate opacification of the portal venous system so unable to assess for thrombosis but it does redemonstrate what it reports is acute necrotic pancreatitis with increased size of peripancreatic acute necrotic collections extending inferiorly throughout the retroperitoneum and involving the right pararenal space and evert hepatis. Discussed with GI recs were to increase the fluids, add albumin, check lactate, and also for a surgery consult to be placed as well as an order for PICC as he may likely need TPN. We will continue Merrem. Will trend ESR and CRP as they are elevated. Of note his white count has improved and returned to normal, afebrile and vitals have remained stable. 09/21: EGD performed today by Dr. Magdaleno and showed esophagitis and nonbleeding duodenal ulcer but no varices. Also was evaluated by surgery today and given the fact that he has decreased pain surgery does not feel there needs to be any acute intervention. If intervention does need to be performed may need to be transferred to tertiary facility. Surgery also said to consider discontinuation of antibiotics if there is no clinical evidence of infected pancreatic necrosis. He did have white count of 25,000 prior to meropenem being started and it did improve white count from there, still given current status improvement will consider discontinuing 09/22: Abdomen continues to improve, does have a bump in LFTs and ALP today but all inflammatory markers are downtrending. Given improvement in clinical status hopefully will be able to avoid surgery, GI following 09/23: Pain continues to improve. Was cut back on fluids yesterday to 50, closely monitor fluid status and try for more strict I's and O's to assess for further fluid management 09/24: Minimal if any pain, trying to increase p.o. intake, is becoming edematous and had to adjust fluids accordingly. Bili was somewhat up today as were LFTs, will repeat tomorrow, will also decrease statin #Portal vein thrombosis On heparin drip, discussed with GI and they recommended short acting agent for 72 hours to monitor for hemorrhagic conversion prior to long-acting agent. Hemoglobin has remained stable, will need to assess long-term plan discussed with family #Change in mental status reports he is not close to baseline, seems to be waxing and waning Ammonia is not elevated, only 19 at this time Was hyponatremic on admission and this has gradually been improving Suspect there could be hypoactive delirium Melatonin nightly, will try nonpharmacologic management first but can consider small dose of Abilify if compatible with other medications if he remains unchanged We will also decrease bedtime trazodone dose in the event that this is contributing ESR and CRP also ordered 09/20/2022: Has seemed more awake and conversational though still somewhat confused, trending ESR and CRP 09/22: Confused, will attempt to reach out to his microbiology analyst regarding his medications 09/23: Spoke with his microbiology analyst, medications likely not the cause of confusion but he was agreeable to stopping propranolol as he is no longer in thyroid storm sensitive free T4 and T3 are within normal limits can cut methimazole back to 30, free T4 within normal limits and free T3 actually low so change will be made for tomorrow. If he does not begin to improve may get head CT and EEG but given comorbidities and clinical status very likely may just be delirium, encourage nonpharmacologic measures 09/24: Is certainly improved today, may be due to medication changes. With mental status improving may be closer to discharge #Hypothyroidism Had recent hospitalization at [facility] for thyroid storm Continue methimazole, this dosage was increased on admission due to TSH less than 0.01 and free T4 of 2.6 09/23: Spoke with his microbiology analyst yesterday, checked labs, DC'd propranolol and decrease methimazole accordingly #Abnormal EKG Planning on seeing cardiology as an outpatient Echo obtained and EF 55 to 60% with overall normal LV systolic function #DVT ppx: On heparin drip Elizabeth Roger MD Charges/Coding Visit Charges Inpatient E&M: 76970 Subs Hosp L2
[2022-09-24] MEDS: Potassium Chloride Oral Tablet 20 MEQ 40 MEQ PO (16:50)
[2022-09-24 18:16] LABS: Bedside Glucose 162 mg/dL (74-106)
[2022-09-24] MEDS: MELATONIN 10 MG TABLET PO (20:54)
[2022-09-24] MEDS: Atorvastatin Calcium 20 MG Tablet PO (20:58)
[2022-09-24 23:05] LABS: Bedside Glucose 183 mg/dL (74-106)
[2022-09-25] VITALS (10 sets, daily range): BP systolic 117–169; BP diastolic 62–97; PULSE 79–102; RESP 16–18; TEMP 36.6–37.2; O2SAT 97–99
[2022-09-25] MEDS: oxyCODONE 5 MG Tablet PO ×2 (02:18→09:01)
[2022-09-25] MEDS: hydrALAZINE 20 MG/ML Vial 5 MG IV (02:18)
[2022-09-25] MEDS: HEPARIN/D5w 25,000 UNITS 25,000 UNITS/250 ML IV.SOLN. 8 UNITS CONT INF (03:29)
[2022-09-25] MEDS: Acetaminophen 500 MG Tablet PO (06:00)
[2022-09-25] MEDS: Insulin Lispro 100 UNIT/ML INSULN.PEN SC ×4 (06:47→22:34)
[2022-09-25] MEDS: Metoclopramide 5 MG TABLET PO ×3 (06:47→16:24)
[2022-09-25 07:10] LABS: Bedside Glucose 168 mg/dL (74-106)
[2022-09-25 07:30] LABS: Absolute Lymphocyte Count 1.53 X10^3/uL (0.83-4.51); Absolute Neutrophil Count 11.6 X10^3/uL (2.0-7.7); Basophil# 0.02 X10^3/uL; Basophil% 0.1 % (0-1); Eosinophil# 0.06 X10^3/uL; Eosinophils% 0.4 % (0-5); Hematocrit 30.9 % (40-54); Hemoglobin 9.9 g/dL (13.0-16.5); Lymphocyte # 1.53 X10^3/ul (0.83-4.51); Lymphocyte % 11.1 % (19-41); Mean Corpuscular Volume 87.3 fL (80-94); Mean Platelet Vol. 10.6 fl (6.2-12.0); Monocyte# 0.44 X10^3/uL; Monocyte% 3.2 % (0-10); NRBC Flagged by Analyzer 0 % (0-5); Neutrophil # 11.59 X10^3/uL (2.7-7.7); Neutrophil % 84.2 % (47-70); POSITIVE MORPHOLOGY YES; Platelet Count 334 K/mm3 (150-450); RBC Distribution Width CV 13.3 % (11.6-14.6); RBC Distribution Width SD 42.2 fl (35.1-43.9); Red Blood Count 3.54 M/mm3 (4.6-6.2); White Blood Count 13.8 K/mm3 (4.4-11.0)
--- NOTE | 2022-09-25 07:46 | PCM.PN.HOSP ---
Subjective Subjective Sitting up in chair with friend at bedside, he is very tired and falling asleep while we are talking but upon my review he had received oxycodone which she had not received recently. Abdomen still somewhat tender, still reports that he does not think this is worsening. Is fairly edematous but does not have complaints with his breathing. No other complaints today Objective Data Objective Data Vital Signs: Vital Signs Temp Pulse Resp BP Pulse Ox O2 Del Method 98.9 F 102 H 18 128/82 H 99 Room Air 09/25/22 05:58 09/25/22 07:00 09/25/22 05:58 09/25/22 05:58 09/25/22 05:58 09/25/22 05:58 Oxygen Delivery Method Room Air Weight: 69.6 kg Body Mass Index (BMI) 22.3 Intake & Output: Intake and Output for Last 24 Hours 09/23/22 09/24/22 09/25/22 23:59 23:59 23:59 Intake Total 2581.67 / 2701.67 1597.5 / 1597.5 246.4 / 246.4 Output Total 700 / 700 Balance 2581.67 / 2701.67 897.5 / 897.5 246.4 / 246.4 Medical Nutrition Assessment Dietitian: Malnutrition Criteria Met Start: 09/16/22 14:13 Freq: Status: Active Protocol: Document 09/20/22 14:55 RMA (Rec: 09/20/22 14:55 RMA [id number]) Nutrition Malnutrition Evidence of Malnutrition Exists Yes Malnutrition (severe): Acute Illness/Injury Evidenced By Suboptimal Energy Intake ( Severe),Weight Loss (Severe), Physical Changes (Severe) Clinical Problem Acute Disease or Injury Related Malnutrition Etiology severe, acute malnutrition related to inadequate energy intake d/t GI dysfunction Signs/Symptoms as evidenced by unintentional 45#/27% wt loss < 1 month; estimated PO intake meeting < 50% of estimated energy needs >5 days; severe muscle wasting /fat loss per physical exam Status Active Problem Recommendation Dietitian Recommendations/Changes Recommend advance diet as tolerated to regular/fat restricted. Will d/c 8oz ensure clear w/ meals and d/c ensure clear with medpass. Will add 120 ml ensure plus high protein TID w/ meals for tolerance. Adjust ONS as needed to optimize oral intake at meals and promote weight gain. Lab / Micro Data Result Diagrams: 09/25/22 06:24 09/25/22 06:24 Labs: Laboratory Results - last 24 hr 09/24/22 11:03: POC Glucose 212 H 09/24/22 16:47: POC Glucose 162 H 09/24/22 22:16: POC Glucose 183 H 09/25/22 06:24: APTT 46.0 H 09/25/22 06:46: POC Glucose 168 H Micro: Microbiology 09/15/22 21:55 Blood Culture (Wb) - Right Forearm Blood Culture - Final No growth in 5 days. 09/15/22 21:44 Blood Culture (Wb) - Anticubital Right Blood Culture - Final No growth in 5 days. Physical Exam Const Constitutional Narrative: Oriented, tired HEENT normocephalic and head/scalp atraumatic Eyes Eyes Narrative: EOM grossly intact, does have some mild scleral icterus Neck supple Resp normal respiratory effort and clear to auscultation bilaterally Cardio regular rate and regular rhythm GI GI Narrative: Somewhat full, mildly tender, no rebound, guarding, or rigidity Extremity Extremity Narrative: 1-2+ lower extremity edema Neuro moves all extremities Neuro Narrative: No overt focal deficits appreciated Psych Psych Narrative: Cooperative Assessment & Plan Assessment/Plan (1) Pancreatitis: QUALIFIERS: Chronicity: acute Pancreatitis type: unspecified pancreatitis type Acute pancreatitis complication: no infection or necrosis Qualified Code(s): K85.90 - Acute pancreatitis without necrosis or infection, unspecified (2) Hyperthyroidism: (3) Abnormal EKG: (4) Hyperkalemia: (5) Pancreatic pseudocyst: (6) Weight loss: (7) Encephalopathy: PLAN: Plan #Acute pancreatitis MRCP showed 6.6 cm pseudocyst involving head and uncinate process of the pancreas and there was pancreatic edema consistent with acute pancreatitis involving the evert hepatis and hepatoduodenal ligament Pain is improving slowly tolerating p.o. GI following and obtained repeat CT which read as the 6 cm pseudocyst versus abscess with worsening phlegmon extending into the evert hepatis and retroperitoneum and a portal vein thrombus. Discussed with GI, he is on Merrem On heparin drip, short acting agent given to monitor the risk for hemorrhagic transformation Ensure clear 3 times daily Pain control 09/19: Still some tenderness, on fluids and Merrem. White blood cell count has normalized. Has had 2 contrasted [address]s and want to avoid overuse but pending progress/clinical status tomorrow we will consider repeating CT with contrast for reevaluation 09/20: CTA obtained this morning resulted this evening, CT reported inadequate opacification of the portal venous system so unable to assess for thrombosis but it does redemonstrate what it reports is acute necrotic pancreatitis with increased size of peripancreatic acute necrotic collections extending inferiorly throughout the retroperitoneum and involving the right pararenal space and evert hepatis. Discussed with GI recs were to increase the fluids, add albumin, check lactate, and also for a surgery consult to be placed as well as an order for PICC as he may likely need TPN. We will continue Merrem. Will trend ESR and CRP as they are elevated. Of note his white count has improved and returned to normal, afebrile and vitals have remained stable. 09/21: EGD performed today by Dr. Magdaleno and showed esophagitis and nonbleeding duodenal ulcer but no varices. Also was evaluated by surgery today and given the fact that he has decreased pain surgery does not feel there needs to be any acute intervention. If intervention does need to be performed may need to be transferred to tertiary facility. Surgery also said to consider discontinuation of antibiotics if there is no clinical evidence of infected pancreatic necrosis. He did have white count of 25,000 prior to meropenem being started and it did improve white count from there, still given current status improvement will consider discontinuing 09/22: Abdomen continues to improve, does have a bump in LFTs and ALP today but all inflammatory markers are downtrending. Given improvement in clinical status hopefully will be able to avoid surgery, GI following 09/23: Pain continues to improve. Was cut back on fluids yesterday to 50, closely monitor fluid status and try for more strict I's and O's to assess for further fluid management 09/24: Minimal if any pain, trying to increase p.o. intake, is becoming edematous and had to adjust fluids accordingly. Bili was somewhat up today as were LFTs, will repeat tomorrow, will also decrease statin 09/25: Continues to wax and wane from a pain perspective. No surgery planned at this time, will discuss with GI regarding dispo and TPN and if repeat CT may be needed. Is having peripheral edema that is worsening, fluid scale back #Portal vein thrombosis On heparin drip, discussed with GI and they recommended short acting agent for 72 hours to monitor for hemorrhagic conversion prior to long-acting agent. Hemoglobin has remained stable, will need to assess long-term plan discussed with family #Change in mental status reports he is not close to baseline, seems to be waxing and waning Ammonia is not elevated, only 19 at this time Was hyponatremic on admission and this has gradually been improving Suspect there could be hypoactive delirium Melatonin nightly, will try nonpharmacologic management first but can consider small dose of Abilify if compatible with other medications if he remains unchanged We will also decrease bedtime trazodone dose in the event that this is contributing ESR and CRP also ordered 09/20/2022: Has seemed more awake and conversational though still somewhat confused, trending ESR and CRP 09/22: Confused, will attempt to reach out to his clerical supervisor regarding his medications 09/23: Spoke with his clerical supervisor, medications likely not the cause of confusion but he was agreeable to stopping propranolol as he is no longer in thyroid storm sensitive free T4 and T3 are within normal limits can cut methimazole back to 30, free T4 within normal limits and free T3 actually low so change will be made for tomorrow. If he does not begin to improve may get head CT and EEG but given comorbidities and clinical status very likely may just be delirium, encourage nonpharmacologic measures 09/24: Is certainly improved today, may be due to medication changes. With mental status improving may be closer to discharge 09/25: Has been doing better, upon further review after finding patient very tired today he did receive oxycodone 5 mg this morning which he had not been receiving, will decrease this dose. Did order ABG and ammonia to further assess however. #Elevated liver enzymes Improving today, will stop Tylenol #Hypothyroidism Had recent hospitalization at [facility] for thyroid storm Continue methimazole, this dosage was increased on admission due to TSH less than 0.01 and free T4 of 2.6 09/23: Spoke with his clerical supervisor yesterday, checked labs, DC'd propranolol and decrease methimazole accordingly #Abnormal EKG Planning on seeing cardiology as an outpatient Echo obtained and EF 55 to 60% with overall normal LV systolic function #DVT ppx: On heparin drip Elizabeth Roger MD Charges/Coding Visit Charges Inpatient E&M: 64161 Subs Hosp L2
[2022-09-25 07:48] LABS: Differential Indicated SCAN CRITERIA MET
[2022-09-25 08:13] LABS: ALB/GLOB Ratio 0.7 RATIO (0.9-2.4); AST(SGOT) 83 U/L (15-37); Alanine Aminotransfer ALT/SGPT 66 U/L (16-61); Albumin, Serum 2.4 g/dL (3.2-5.0); Alkaline Phosphatase 668 U/L (45-117); Anion Gap 7 (5-15); BUN 4 mg/dL (7-18); BUN/Creat Ratio 7.3 RATIO (10-20); Calcium,Total 7.6 mg/dL (8.5-10.1); Chloride 112 mmol/L (98-107); Creatinine, Serum 0.55 mg/dL (0.70-1.30); EST Glomerular Filtration Rate 164 mL/min (>60); Est Glom Filt Rate - Afr Amer 198 mL/min (>60); Globulin 3.3 g/dL (2.2-4.2); Glucose 162 mg/dL (74-106); Potassium 3.1 mmol/L (3.5-5.1); Protein, Total 5.7 g/dL (6.4-8.2); Sodium Level 138 mmol/L (136-145)
[2022-09-25] MEDS: Sertraline 100 MG Tablet PO (09:01)
[2022-09-25] MEDS: methIMAzole 10 MG TABLET 30 MG PO (09:01)
[2022-09-25] MEDS: Aspirin 81 MG TAB.CHEW PO (09:01)
[2022-09-25] MEDS: Creon 12,000 unit DR CapSULE 2 CAP PO ×3 (09:01→17:23)
[2022-09-25] MEDS: amLODIPine 5 MG Tablet PO (09:01)
[2022-09-25] MEDS: Ensure Clear 120 ML Liquid PO ×2 (09:01→21:09)
[2022-09-25] MEDS: rifAXIMin 550 MG Tablet PO ×2 (09:01→21:09)
[2022-09-25] MEDS: Pantoprazole Sodium 40 MG Tablet PO (09:01)
[2022-09-25] MEDS: Albumin Human 25% (100 mL) 25 GM/100 ML BAG IV ×2 (09:02→20:52)
[2022-09-25] MEDS: Heparin Injection (Vial) 5,000 UNIT/ML VIAL IV (09:07)
[2022-09-25 09:23] LABS: Differential Comment SCANNED
[2022-09-25] MEDS: Potassium Chloride Oral Tablet 20 MEQ 40 MEQ PO (11:03)
[2022-09-25] MEDS: 0.9% Saline Lock 10 ML Syringe IV (11:06)
[2022-09-25 12:00] LABS: Bedside Glucose 170 mg/dL (74-106)
--- NOTE | 2022-09-25 13:10 | CT_ITS ---
STUDY: CTA OF THE ABDOMINAL AORTA AND BILATERAL LOWER EXTREMITIES REASON FOR EXAM: Male, 56 years old. Diffuse abdominal pain, history of pancreatitis and portal vein thrombosis RADIATION DOSAGE (If Supplied By Facility): CTDIvol = ( 17.27 ) mGy, DLP = ( 1262.92 ) mGycm TECHNIQUE: Axial CT angiography multi-detector data acquisition was obtained from the lung bases to the pelvis following intravenous administration of IV 100mL Isovue-370. Axial images and MIP images were reconstructed from the axial data set. Post-processing of the angiographic images was performed, with multiplanar reformation and 3D reconstruction. Individualized dose optimization techniques were used for this CT. TECHNICAL QUALITY: Good COMPARISON: 09/20/2022 Descriptors of Narrowing: None (0%) Mild (< 50%) Moderate (50-70%) Severe (70-90%) Subtotal/Total Occlusion (90-100%) Non-Evaluable (technically non-diagnostic FINDINGS: Lung bases show smaller pleural effusions and less atelectasis than on the previous study. Cirrhotic liver with nodular borders and persistent and unchanged thrombosis of the intrahepatic and extrahepatic portal veins. Stable peripancreatic edema with stable dilatation of the pancreatic duct and a stable 6 cm pseudocyst involving the pancreatic neck and proximal body. Associated induration of the mesenteric fat with scattered subcentimeter short axis dimension mesenteric lymph nodes. Spleen and adrenals are unremarkable. Simple bilateral renal cysts, no specific follow-up needed. No obstructive uropathy or suspicious solid renal lesion. Stomach is unremarkable. Nondistended fluid filled small and large bowel loops consistent with diffuse enteritis. Evidence of previous appendectomy, there is diffuse four-quadrant ascites increased in amount from the previous study. Abdominal aorta: No demonstrated narrowing. Celiac and superior mesenteric arteries: No demonstrated narrowing. Inferior mesenteric artery: No demonstrated narrowing. Right renal artery(arteries): No demonstrated narrowing. Left renal artery(arteries): No demonstrated narrowing. Right common iliac artery: No demonstrated narrowing. Right external iliac artery: No demonstrated narrowing. Right internal iliac artery: No demonstrated narrowing. Left common iliac artery: No demonstrated narrowing. Left external iliac artery: No demonstrated narrowing. Left internal iliac artery: No demonstrated narrowing. Diffuse induration of the subcutaneous fat consistent with anasarca. Bony structures show degenerative change CT/CTA Abdomen W/WO Contrast IMPRESSION: Stable CT changes of acute and chronic pancreatitis with stable pseudocyst, pancreatic ductal dilatation and peripancreatic inflammation. No interval change since the previous study. 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 Nonspecific induration of the mesenteric fat with scattered subcentimeter in short axis dimension mesenteric lymph nodes. Induration of the subcutaneous fat consistent with anasarca. Electronically Signed: Kolton Rodriguez MD at 14:34 EST ,
[2022-09-25] MEDS: Lactulose 20 GM/30 ML UDC PO ×2 (13:33→21:09)
[2022-09-25 14:13] LABS: Lactic Acid 2.1 mmol/L (0.4-1.9)
[2022-09-25 14:30] LABS: Allen Test Positive; Base Excess -7 mmol/L (-2 to +2); Bicarbonate 18.7 mmol/L (22-26); Blood Gas Specimen Type ART; O2 Delivery Device Room Air; PO2 85 mmHG (75-100); SITE L Brach; SO2 96 % (95-99); Total Carbon Dioxide 20 mmol/L; pCO2 31.8 mmHg (35-45); pH 7.38 (7.35-7.45)
[2022-09-25 14:43] LABS: LDH 148 U/L (87-241)
[2022-09-25 15:22] LABS: Erythrocyte Sedimentation Rate 20 mm/hr (0-20)
[2022-09-25 15:39] LABS: Partial Thromboplast Time 58.2 Seconds (24.1-36.2)
[2022-09-25 16:46] LABS: Bedside Glucose 218 mg/dL (74-106)
[2022-09-25 17:45] LABS: Reflex Lactate? Y
[2022-09-25 18:44] LABS: Lactic Acid 3.5 mmol/L (0.4-1.9)
[2022-09-25] MEDS: Furosemide 20 MG/2 ML VIAL IV (20:59)
[2022-09-25] MEDS: MELATONIN 10 MG TABLET PO (21:10)
[2022-09-25] MEDS: Atorvastatin Calcium 20 MG Tablet PO (21:10)
[2022-09-25 22:01] LABS: Partial Thromboplast Time 72.8 Seconds (24.1-36.2)
[2022-09-25 22:08] LABS: International Normalized Ratio 1.5; Prothrombin Time (Protime)PT. 17.7 SECONDS (11.7-14.9)
[2022-09-25 22:27] LABS: Lactic Acid 2.4 mmol/L (0.4-1.9)
[2022-09-25 23:00] LABS: Bedside Glucose 178 mg/dL (74-106)
[2022-09-26] VITALS (11 sets, daily range): BP systolic 130–154; BP diastolic 67–89; PULSE 81–104; RESP 16–18; TEMP 36.8–37.1; O2SAT 95–98
[2022-09-26 01:43] LABS: Reflex Lactate? Y
[2022-09-26 02:46] LABS: Absolute Lymphocyte Count 1.54 X10^3/uL (0.83-4.51); Absolute Neutrophil Count 6.9 X10^3/uL (2.0-7.7); Basophil# 0.02 X10^3/uL; Basophil% 0.2 % (0-1); Eosinophil# 0.13 X10^3/uL; Eosinophils% 1.4 % (0-5); Hematocrit 23.5 % (40-54); Hemoglobin 7.2 g/dL (13.0-16.5); Lymphocyte # 1.54 X10^3/ul (0.83-4.51); Lymphocyte % 16.7 % (19-41); Mean Corp Hgb Conc 30.6 g/dL (32-36); Mean Corpuscular Hgb 27.7 pg (27.0-32.0); Mean Corpuscular Volume 90.4 fL (80-94); Mean Platelet Vol. 9.7 fl (6.2-12.0); Monocyte# 0.57 X10^3/uL; Monocyte% 6.2 % (0-10); NRBC Flagged by Analyzer 0 % (0-5); Neutrophil # 6.88 X10^3/uL (2.7-7.7); Neutrophil % 74.7 % (47-70); Platelet Count 254 K/mm3 (150-450); RBC Distribution Width CV 13.8 % (11.6-14.6); RBC Distribution Width SD 45.2 fl (35.1-43.9); White Blood Count 9.2 K/mm3 (4.4-11.0)
[2022-09-26 02:52] LABS: Partial Thromboplast Time 81.6 Seconds (24.1-36.2)
[2022-09-26 03:32] LABS: ALB/GLOB Ratio 0.9 RATIO (0.9-2.4); AST(SGOT) 20 U/L (15-37); Alanine Aminotransfer ALT/SGPT 34 U/L (16-61); Albumin, Serum 2.9 g/dL (3.2-5.0); Alkaline Phosphatase 402 U/L (45-117); Anion Gap 6 (5-15); BUN 5 mg/dL (7-18); BUN/Creat Ratio 6.7 RATIO (10-20); Calcium,Total 7.9 mg/dL (8.5-10.1); Chloride 109 mmol/L (98-107); Creatinine, Serum 0.75 mg/dL (0.70-1.30); EST Glomerular Filtration Rate 115 mL/min (>60); Est Glom Filt Rate - Afr Amer 139 mL/min (>60); Estimated Creatinine Clearance 85.94 ml/min; Globulin 3.1 g/dL (2.2-4.2); Glucose 168 mg/dL (74-106); Potassium 2.9 mmol/L (3.5-5.1); Sodium Level 138 mmol/L (136-145)
[2022-09-26 03:36] LABS: Lactic Acid 1.8 mmol/L (0.4-1.9)
[2022-09-26] MEDS: Lactulose 20 GM/30 ML UDC PO ×2 (05:13→21:41)
[2022-09-26] MEDS: Insulin Lispro 100 UNIT/ML INSULN.PEN SC ×3 (06:39→16:49)
[2022-09-26] MEDS: Metoclopramide 5 MG TABLET PO ×3 (06:42→16:50)
[2022-09-26 07:05] LABS: Bedside Glucose 162 mg/dL (74-106)
[2022-09-26] MEDS: Albumin Human 25% (100 mL) 25 GM/100 ML BAG IV (09:33)
[2022-09-26] MEDS: Creon 12,000 unit DR CapSULE 2 CAP PO ×3 (09:37→16:50)
[2022-09-26] MEDS: HEPARIN/D5w 25,000 UNITS 25,000 UNITS/250 ML IV.SOLN. 8 UNITS CONT INF (09:37)
[2022-09-26] MEDS: rifAXIMin 550 MG Tablet PO ×2 (09:38→21:41)
[2022-09-26] MEDS: Aspirin 81 MG TAB.CHEW PO (09:38)
[2022-09-26] MEDS: Pantoprazole Sodium 40 MG Tablet PO (09:38)
[2022-09-26] MEDS: methIMAzole 10 MG TABLET 30 MG PO (09:38)
[2022-09-26] MEDS: Sertraline 100 MG Tablet PO (09:39)
[2022-09-26] MEDS: amLODIPine 5 MG Tablet PO (09:40)
[2022-09-26] MEDS: Potassium Chloride Oral Tablet 20 MEQ 60 MEQ PO (09:42)
--- NOTE | 2022-09-26 10:14 | PN.HOSP_ITS ---
Subjective Subjective Continue to wax and wane with his confusion, lactic improved after albumin and Lasix, abdomen slightly improved today. Back on liquids. If unable to advance diet will need TPN, PICC in place Objective Data Objective Data Vital Signs: Vital Signs Temp Pulse Resp BP Pulse Ox O2 Del Method 98.2 F 95 18 130/89 H 98 Room Air 09/26/22 09:30 09/26/22 09:30 09/26/22 09:30 09/26/22 09:30 09/26/22 09:51 09/26/22 09:51 Oxygen Delivery Method Room Air Weight: 70.3 kg Body Mass Index (BMI) 22.3 Intake & Output: Intake and Output for Last 24 Hours 09/24/22 09/25/22 09/26/22 23:59 23:59 23:59 Intake Total 1597.5 / 1597.5 1478.14 / 1478.14 304.93 / 304.93 Output Total 700 / 700 Balance 897.5 / 897.5 1478.14 / 1478.14 304.93 / 304.93 Medical Nutrition Assessment Dietitian: Malnutrition Criteria Met Start: 09/16/22 14:13 Freq: Status: Active Protocol: Document 09/20/22 14:55 RMA (Rec: 09/20/22 14:55 RMA [id number]) Nutrition Malnutrition Evidence of Malnutrition Exists Yes Malnutrition (severe): Acute Illness/Injury Evidenced By Suboptimal Energy Intake ( Severe),Weight Loss (Severe), Physical Changes (Severe) Clinical Problem Acute Disease or Injury Related Malnutrition Etiology severe, acute malnutrition related to inadequate energy intake d/t GI dysfunction Signs/Symptoms as evidenced by unintentional 45#/27% wt loss < 1 month; estimated PO intake meeting < 50% of estimated energy needs >5 days; severe muscle wasting /fat loss per physical exam Status Active Problem Recommendation Dietitian Recommendations/Changes Recommend advance diet as tolerated to regular/fat restricted. Will d/c 8oz ensure clear w/ meals and d/c ensure clear with medpass. Will add 120 ml ensure plus high protein TID w/ meals for tolerance. Adjust ONS as needed to optimize oral intake at meals and promote weight gain. Lab / Micro Data Result Diagrams: 09/26/22 02:30 09/26/22 02:30 Labs: Laboratory Results - last 24 hr 09/25/22 06:24: ESR 20 12/31/22 06:24: Lactate Dehydrogenase 148 09/25/22 11:01: POC Glucose 170 H 09/25/22 13:13: Ammonia 21.0 09/25/22 13:27: Lactic Acid 2.1 H* 09/25/22 15:21: APTT 58.2 H 09/25/22 16:22: POC Glucose 218 H 09/25/22 17:55: Lactic Acid 3.5 H* 09/25/22 21:33: APTT 72.8 H 09/25/22 21:33: Lactic Acid 2.4 H* 09/25/22 21:33: PT 17.7 H, INR 1.5 09/25/22 22:33: POC Glucose 178 H 09/26/22 02:30: WBC 9.2, RBC 2.60 L, Hgb 7.2 L, Hct 23.5 L, MCV 90.4, MCH 27.7, MCHC 30.6 L, RDW Std Deviation 45.2 H, RDW Coeff of Fili 13.8, Plt Count 254, MPV 9.7, Immature Gran % (Auto) 0.800, Neut % (Auto) 74.7 H, Lymph % (Auto) 16.7 L, [place] % (Auto) 6.2, Eos % (Auto) 1.4, Baso % (Auto) 0.2, Absolute Neuts (auto) 6. 9, Absolute Lymphs (auto) 1.54, Nucleated RBC % 0 09/26/22 02:30: Sodium 138, Potassium 2.9 L, Chloride 109 H, Carbon Dioxide 23.0, Anion Gap 6, BUN 5 L, Creatinine 0.75, Estim Creat Clear Calc 85.94, Est GFR (MDRD) Af Amer 139, Est GFR (MDRD) Non-Af 115, BUN/Creatinine Ratio 6.7 L, Glucose 168 H, Calcium 7.9 L, Total Bilirubin 1.20 H, AST 20, ALT 34, Alkaline Phosphatase 402 H, C-React Prot Ext Range 156.00 H, Total Protein 6.0 L, Albumin 2.9 L, Globulin 3.1, Albumin/Globulin Ratio 0.9 09/26/22 02:30: APTT 81.6 H 09/26/22 02:30: Lactic Acid 1.8 09/26/22 06:36: POC Glucose 162 H Micro: Microbiology 09/15/22 21:55 Blood Culture (Wb) - Right Forearm Blood Culture - Final No growth in 5 days. 09/15/22 21:44 Blood Culture (Wb) - Anticubital Right Blood Culture - Final No growth in 5 days. ABG Data ABG results: ABG 09/25/22 14:23 Specimen Type ART Sample Site L Brach pH 7.38 Bicarbonate Actual 18.7 L Total CO2 20 Base Excess -7 L O2 Saturation 96 ABG pCO2 31.8 L ABG pO2 85 [place] Test Positive O2 Delivery Device Room Air Radiography Diagnostic Testing: Radiology Impression Abdomen CTA 09/25/22 13:10 IMPRESSION: Stable CT changes of acute and chronic pancreatitis with stable pseudocyst, pancreatic ductal dilatation and peripancreatic inflammation. No interval change since the previous study. 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 Nonspecific induration of the mesenteric fat with scattered subcentimeter in short axis dimension mesenteric lymph nodes. Induration of the subcutaneous fat consistent with anasarca. Electronically Signed: Kolton Rodriguez MD at 14:34 EST , Physical Exam Const Constitutional Narrative: Oriented, tired HEENT normocephalic and head/scalp atraumatic Eyes Eyes Narrative: EOM grossly intact, icterus slight improved Neck supple Resp normal respiratory effort and clear to auscultation bilaterally Cardio regular rate and regular rhythm GI GI Narrative: Somewhat full, urine is improved from yesterday, no rebound, guarding, rigidity but slightly distended Extremity Extremity Narrative: 1-2+ lower extremity edema Neuro moves all extremities Neuro Narrative: No overt focal deficits appreciated Psych Psych Narrative: Cooperative Assessment & Plan Assessment/Plan (1) Pancreatitis: QUALIFIERS: Chronicity: acute Pancreatitis type: unspecified pancreatitis type Acute pancreatitis complication: no infection or necrosis Qualified Code(s): K85.90 - Acute pancreatitis without necrosis or infection, unspecified (2) Hyperthyroidism: (3) Abnormal EKG: (4) Hyperkalemia: (5) Pancreatic pseudocyst: (6) Weight loss: (7) Encephalopathy: PLAN: Plan #Acute pancreatitis MRCP showed 6.6 cm pseudocyst involving head and uncinate process of the pa ncreas and there was pancreatic edema consistent with acute pancreatitis involving the evert hepatis and hepatoduodenal ligament Pain is improving slowly tolerating p.o. GI following and obtained repeat CT which read as the 6 cm pseudocyst versus abscess with worsening phlegmon extending into the evert hepatis and retroperitoneum and a portal vein thrombus. Discussed with GI, he is on Merrem On heparin drip, short acting agent given to monitor the risk for hemorrhagic transformation Ensure clear 3 times daily Pain control 09/19: Still some tenderness, on fluids and Merrem. White blood cell count has normalized. Has had 2 contrasted [address]s and want to avoid overuse but pending progress/clinical status tomorrow we will consider repeating CT with contrast for reevaluation 09/20: CTA obtained this morning resulted this evening, CT reported inadequate opacification of the portal venous system so unable to assess for thrombosis but it does redemonstrate what it reports is acute necrotic pancreatitis with increased size of peripancreatic acute necrotic collections extending inferiorly throughout the retroperitoneum and involving the right pararenal space and evert hepatis. Discussed with GI recs were to increase the fluids, add albumin, check lactate, and also for a surgery consult to be placed as well as an order for PICC as he may likely need TPN. We will continue Merrem. Will trend ESR and CRP as they are elevated. Of note his white count has improved and returned to normal, afebrile and vitals have remained stable. 09/21: EGD performed today by Dr. Magdaleno and showed esophagitis and nonbleeding duodenal ulcer but no varices. Also was evaluated by surgery today and given t he fact that he has decreased pain surgery does not feel there needs to be any acute intervention. If intervention does need to be performed may need to be transferred to tertiary facility. Surgery also said to consider discontinuation of antibiotics if there is no clinical evidence of infected pancreatic necrosis. He did have white count of 25,000 prior to meropenem being started and it did improve white count from there, still given current status improvement will consider discontinuing 09/22: Abdomen continues to improve, does have a bump in LFTs and ALP today but all inflammatory markers are downtrending. Given improvement in clinical status hopefully will be able to avoid surgery, GI following 09/23: Pain continues to improve. Was cut back on fluids yesterday to 50, closely monitor fluid status and try for more strict I's and O's to assess for further fluid management 09/24: Minimal if any pain, trying to increase p.o. intake, is becoming edematous and had to adjust fluids accordingly. Bili was somewhat up today as were LFTs, will repeat tomorrow, will also decrease statin 09/25: Continues to wax and wane from a pain perspective. No surgery planned at this time, will discuss with GI regarding dispo and TPN and if repeat CT may be needed. Is having peripheral edema that is worsening, fluid scale back 09/26: After discussing with GI yesterday CT repeated and discussed the results. Patient placed back on liquids and Lactic improved with albumin and Lasix, another dose of Lasix given today and abdomen feels slightly better. If not able to advance diet again within the next 1 to 2 days we will need to start TPN, has PICC in place. #Portal vein thrombosis On heparin drip, discussed with GI and they recommended short acting agent for 72 hours to monitor for hemorrhagic conversion prior to long-acting agent. Hemoglobin has remained stable, will need to assess long-term plan discussed with family 09/26: Hemoglobin has been variable but is somewhat down today, unclear if third space fluid is becoming intravascular as all cell lines decreased today but will repeat #Change in mental status reports he is not close to baseline, seems to be waxing and waning Ammonia is not elevated, only 19 at this time Was hyponatremic on admission and this has gradually been improving Suspect there could be hypoactive delirium Melatonin nightly, will try nonpharmacologic management first but can consider small dose of Abilify if compatible with other medications if he remains unchanged We will also decrease bedtime trazodone dose in the event that this is contrib uting ESR and CRP also ordered 09/20/2022: Has seemed more awake and conversational though still somewhat confused, trending ESR and CRP 09/22: Confused, will attempt to reach out to his retail presentation specialist regarding his medications 09/23: Spoke with his retail presentation specialist, medications likely not the cause of confusion but he was agreeable to stopping propranolol as he is no longer in thyroid storm sensitive free T4 and T3 are within normal limits can cut methimazole back to 30, free T4 within normal limits and free T3 actually low so change will be made for tomorrow. If he does not begin to improve may get head CT and EEG but given comorbidities and clinical status very likely may just be delirium, encourage nonpharmacologic measures 09/24: Is certainly improved today, may be due to medication changes. With mental status improving may be closer to discharge 09/25: Has been doing better, upon further review after finding patient very tired today he did receive oxycodone 5 mg this morning which he had not been receiving, will decrease this dose. Did order ABG and ammonia to further assess however. 09/26: A.m. free T3 and free T4, may need further adjustments of thyroid medication based on results, waxing and waning, likely component of delirium at this point #Elevated liver enzymes Improving today, will stop Tylenol #Hypothyroidism Had recent hospitalization at [place] for thyroid storm Continue methimazole, this dosage was increased on admission due to TSH less than 0.01 and free T4 of 2.6 09/23: Spoke with his retail presentation specialist yesterday, checked labs, DC'd propranolol and decrease methimazole accordingly 09/26: Repeating thyroid function in the morning #Abnormal EKG Planning on seeing cardiology as an outpatient Echo obtained and EF 55 to 60% with overall normal LV systolic function #DVT ppx: On heparin drip Elizabeth Roger MD Charges/Coding Visit Charges Inpatient E&M: 64638 Subs Hosp L2
[2022-09-26 11:30] LABS: Bedside Glucose 183 mg/dL (74-106)
[2022-09-26 11:53] LABS: Partial Thromboplast Time 83.8 Seconds (24.1-36.2)
[2022-09-26] MEDS: 0.9% Saline Lock 10 ML Syringe IV (13:19)
[2022-09-26] MEDS: Furosemide 20 MG/2 ML VIAL IV (13:19)
[2022-09-26] MEDS: oxyCODONE 5 MG Tablet 2.5 MG PO (14:53)
[2022-09-26 17:16] LABS: Bedside Glucose 198 mg/dL (74-106)
[2022-09-26 18:22] LABS: Partial Thromboplast Time 69.3 Seconds (24.1-36.2)
[2022-09-26 20:08] LABS: Absolute Lymphocyte Count 1.59 X10^3/uL (0.83-4.51); Absolute Neutrophil Count 7.3 X10^3/uL (2.0-7.7); Basophil# 0.02 X10^3/uL; Basophil% 0.2 % (0-1); Eosinophil# 0.18 X10^3/uL; Eosinophils% 1.9 % (0-5); Hematocrit 23.5 % (40-54); Hemoglobin 7.7 g/dL (13.0-16.5); Lymphocyte # 1.59 X10^3/ul (0.83-4.51); Lymphocyte % 16.6 % (19-41); Mean Corp Hgb Conc 32.8 g/dL (32-36); Mean Corpuscular Hgb 29.4 pg (27.0-32.0); Mean Corpuscular Volume 89.7 fL (80-94); Mean Platelet Vol. 9.1 fl (6.2-12.0); Monocyte# 0.47 X10^3/uL; Monocyte% 4.9 % (0-10); NRBC Flagged by Analyzer 0 % (0-5); Neutrophil # 7.26 X10^3/uL (2.7-7.7); Platelet Count 249 K/mm3 (150-450); RBC Distribution Width CV 14.3 % (11.6-14.6); RBC Distribution Width SD 45.7 fl (35.1-43.9); Red Blood Count 2.62 M/mm3 (4.6-6.2); White Blood Count 9.6 K/mm3 (4.4-11.0)
[2022-09-26] MEDS: Atorvastatin Calcium 20 MG Tablet PO (21:41)
[2022-09-26] MEDS: traZODone 100 MG Tablet PO (21:41)
[2022-09-26] MEDS: MELATONIN 10 MG TABLET PO (21:41)
[2022-09-26 22:11] LABS: Bedside Glucose 139 mg/dL (74-106)
[2022-09-27] VITALS (9 sets, daily range): BP systolic 134–167; BP diastolic 73–84; PULSE 97–119; RESP 16–18; TEMP 37.1–37.7; O2SAT 95–99
[2022-09-27 00:15] LABS: Partial Thromboplast Time 77.2 Seconds (24.1-36.2)
[2022-09-27] MEDS: Metoclopramide 5 MG TABLET PO ×3 (05:55→16:59)
[2022-09-27] MEDS: Insulin Lispro 100 UNIT/ML INSULN.PEN SC ×4 (06:13→21:11)
[2022-09-27 06:35] LABS: Bedside Glucose 162 mg/dL (74-106)
[2022-09-27 06:47] LABS: Absolute Neutrophil Count 4.8 X10^3/uL (2.0-7.7); Eosinophil# 0.09 X10^3/uL; Eosinophils% 1.5 % (0-5); Hematocrit 24.2 % (40-54); Hemoglobin 7.8 g/dL (13.0-16.5); Lymphocyte % 11.9 % (19-41); Mean Corp Hgb Conc 32.2 g/dL (32-36); Mean Corpuscular Hgb 28.8 pg (27.0-32.0); Mean Corpuscular Volume 89.3 fL (80-94); Mean Platelet Vol. 9.2 fl (6.2-12.0); Monocyte# 0.27 X10^3/uL; Monocyte% 4.6 % (0-10); NRBC Flagged by Analyzer 0 % (0-5); Neutrophil % 81.3 % (47-70); Platelet Count 235 K/mm3 (150-450); RBC Distribution Width CV 14.6 % (11.6-14.6); RBC Distribution Width SD 46.1 fl (35.1-43.9); Red Blood Count 2.71 M/mm3 (4.6-6.2); White Blood Count 5.9 K/mm3 (4.4-11.0)
[2022-09-27 06:57] LABS: Partial Thromboplast Time 60.2 Seconds (24.1-36.2)
[2022-09-27 07:11] LABS: ALB/GLOB Ratio 0.7 RATIO (0.9-2.4); AST(SGOT) 33 U/L (15-37); Alanine Aminotransfer ALT/SGPT 29 U/L (16-61); Albumin, Serum 2.5 g/dL (3.2-5.0); Alkaline Phosphatase 331 U/L (45-117); Anion Gap 8 (5-15); BUN 5 mg/dL (7-18); BUN/Creat Ratio 7.2 RATIO (10-20); Calcium,Total 7.8 mg/dL (8.5-10.1); Chloride 105 mmol/L (98-107); EST Glomerular Filtration Rate 125 mL/min (>60); Est Glom Filt Rate - Afr Amer 151 mL/min (>60); Estimated Creatinine Clearance 92.08 ml/min; Free T3 0.8 pg/mL (2.18-3.98); Globulin 3.7 g/dL (2.2-4.2); Glucose 161 mg/dL (74-106); Potassium 3.2 mmol/L (3.5-5.1); Protein, Total 6.2 g/dL (6.4-8.2); Sodium Level 136 mmol/L (136-145); T4 Free Direct 0.75 ng/dL (0.76-1.46); Thyroid Stim Hormone (TSH) 0.01 uIU/mL (0.358-3.74)
[2022-09-27] MEDS: Aspirin 81 MG TAB.CHEW PO (08:06)
[2022-09-27] MEDS: Creon 12,000 unit DR CapSULE 2 CAP PO ×3 (08:06→16:59)
[2022-09-27] MEDS: Sertraline 100 MG Tablet PO (10:11)
[2022-09-27] MEDS: methIMAzole 10 MG TABLET 30 MG PO (10:11)
[2022-09-27] MEDS: rifAXIMin 550 MG Tablet PO ×2 (10:11→21:10)
[2022-09-27] MEDS: Lactulose 20 GM/30 ML UDC PO ×2 (10:11→21:11)
[2022-09-27] MEDS: amLODIPine 5 MG Tablet PO (10:11)
[2022-09-27] MEDS: Pantoprazole Sodium 40 MG Tablet PO (10:11)
[2022-09-27] MEDS: Ensure Clear 120 ML Liquid PO ×4 (10:11→21:10)
[2022-09-27] MEDS: Potassium Chloride 10mEq/100mL 10 MEQ/100 ML IV.SOLN. 100 MEQ IV BOLUS ×4 (10:12→14:26)
[2022-09-27 11:55] LABS: Bedside Glucose 222 mg/dL (74-106)
[2022-09-27 14:40] LABS: Triglycerides 102 mg/dL
[2022-09-27 17:21] LABS: Bedside Glucose 160 mg/dL (74-106)
--- NOTE | 2022-09-27 17:22 | PCM.PN.HOSP ---
Subjective Subjective Follow-up on acute pancreatitis: Patient was seen and examined. He complains of epigastric abdominal pain, 6 out of 10. He is on clear liquid diet. Started on TPN. Discussed patient's overall care with his , and sons are at bedside. All questions answered. Objective Data Objective Data Vital Signs: Vital Signs Temp Pulse Resp BP Pulse Ox O2 Del Method 99.2 F H 97 16 149/79 H 97 Room Air 09/27/22 17:12 09/27/22 17:12 09/27/22 17:12 09/27/22 17:12 09/27/22 17:12 09/27/22 17:12 Oxygen Delivery Method Room Air Weight: 70.1 kg Body Mass Index (BMI) 22.3 Intake & Output: Intake and Output for Last 24 Hours 09/25/22 09/26/22 09/27/22 23:59 23:59 23:59 Intake Total 1478.14 / 1478.14 1496.66 / 1496.66 825.4 / 825.4 Output Total 650 / 650 150 / 150 Balance 1478.14 / 1478.14 846.66 / 846.66 675.4 / 675.4 Medical Nutrition Assessment Dietitian: Malnutrition Criteria Met Start: 09/16/22 14:13 Freq: Status: Active Protocol: Document 09/27/22 14:09 RMA (Rec: 09/27/22 14:09 RMA [id number]) Nutrition Malnutrition Evidence of Malnutrition Exists Yes Malnutrition (severe): Acute Illness/Injury Evidenced By Suboptimal Energy Intake ( Severe),Weight Loss (Severe), Physical Changes (Severe) Intake Problem Inadequate Oral Intake Etiology related to altered GI function /inflammation Signs/Symptoms as evidenced by clear liquid diet and need for parenteral nutrition support Status Active Problem Clinical Problem Acute Disease or Injury Related Malnutrition Etiology severe, acute malnutrition related to inadequate energy intake d/t GI dysfunction Signs/Symptoms as evidenced by unintentional 45#/27% wt loss < 1 month; estimated PO intake meeting < 50% of estimated energy needs >5 days; severe muscle wasting /fat loss per physical exam Status Active Problem Recommendation Dietitian Recommendations/Changes Consult today to order and implement parenteral nutrition support. Will order TPN day #1: 1 L 8% amino acid/14% dextrose with electrolytes, MVI, folic acid and trace elements @ 42 ml/hr to provide 798 kcal, 140 gm dextrose, 80 gm protein. No lipids today. No insulin and no famotidine per provider. TPN will meet ~50% estimated calorie needs and ~100% estimated protein needs. Triglyceride level ordered 1 time per week; mag/phos ordered x 3 days. Will monitor daily weights, labs and electrolytes closely. Continue clear liquid diet as tolerated---will d/c ensure clear with meals. Resume solid foods as able with fat-restricted diet as indicated. Continue 120 ml ensure clear 4 times per day w/ medpass as tolerated. Lab / Micro Data Result Diagrams: 09/27/22 06:36 09/27/22 06:36 Labs: Laboratory Results - last 24 hr 09/26/22 18:05: APTT 69.3 H 09/26/22 20:05: WBC 9.6, RBC 2.62 L, Hgb 7.7 L, Hct 23.5 L, MCV 89.7, MCH 29.4, MCHC 32.8 D, RDW Std Deviation 45.7 H, RDW Coeff of Fili 14.3, Plt Count 249, MPV 9.1, Immature Gran % (Auto) 0.400, Neut % (Auto) 76.0 H, Lymph % (Auto) 16.6 L, [place] % (Auto) 4.9, Eos % (Auto) 1.9, Baso % (Auto) 0.2, Absolute Neuts (auto) 7.3, Absolute Lymphs (auto) 1.59, Nucleated RBC % 0 09/26/22 21:45: POC Glucose 139 H 09/26/22 23:57: APTT 77.2 H 09/27/22 06:12: POC Glucose 162 H 09/27/22 06:36: WBC 5.9, RBC 2.71 L, Hgb 7.8 L, Hct 24.2 L, MCV 89.3, MCH 28.8, MCHC 32.2, RDW Std Deviation 46.1 H, RDW Coeff of Fili 14.6, Plt Count 235, MPV 9.2, Immature Gran % (Auto) 0.700, Neut % (Auto) 81.3 H, Lymph % (Auto) 11.9 L, [place] % (Auto) 4.6, Eos % (Auto) 1.5, Baso % (Auto) 0.0, Absolute Neuts (auto) 4.8, Absolute Lymphs (auto) 0.70 L, Nucleated RBC % 0 09/27/22 06:36: Sodium 136, Potassium 3.2 L, Chloride 105, Carbon Dioxide 23.0, Anion Gap 8, BUN 5 L, Creatinine 0.70, Estim Creat Clear Calc 92.08, Est GFR (MDRD) Af Amer 151, Est GFR (MDRD) Non-Af 125, BUN/Creatinine Ratio 7.2 L, Glucose 161 H, Calcium 7.8 L, Total Bilirubin 1.10 H, AST 33, ALT 29, Alkaline Phosphatase 331 H, C-React Prot Ext Range 107.00 H, Total Protein 6.2 L, Albumin 2.5 L, Globulin 3.7, Albumin/Globulin Ratio 0.7 L, Triglycerides 102, TSH 0.01 L, Free T4 0.75 L, Free T3 pg/dL 0.8 L 09/27/22 06:36: APTT 60.2 H 09/27/22 11:31: POC Glucose 222 H 09/27/22 16:57: POC Glucose 160 H Micro: Microbiology 09/15/22 21:55 Blood Culture (Wb) - Right Forearm Blood Culture - Final No growth in 5 days. 09/15/22 21:44 Blood Culture (Wb) - Anticubital Right Blood Culture - Final No growth in 5 days. Physical Exam Narrative Physical exam: General: Alert, Oriented x3, Cooperative, appears frail, unwell HEENT: Atraumatic Oral: Moist Mucosa Neck: Supple Lungs: Diminished to auscultation Cardiovascular: HS I+II, regular, no murmurs Abdomen: Bowel Sounds Present, Soft, appears distended, epigastric tenderness without guarding or rebound tenderness Extremities:Bilateral leg edema +2 Skin: No rashes, No breakdown Neurological: Grossly intact Psych/Mental Status: Appropriate Assessment & Plan Assessment/Plan (1) Pancreatitis: QUALIFIERS: Chronicity: acute Pancreatitis type: unspecified pancreatitis type Acute pancreatitis complication: no infection or necrosis Qualified Code(s): K85.90 - Acute pancreatitis without necrosis or infection, unspecified (2) Hyperthyroidism: (3) Abnormal EKG: (4) Hyperkalemia: (5) Pancreatic pseudocyst: (6) Weight loss: (7) Encephalopathy: PLAN: Plan 1.Acute pancreatitis, unclear etiology, complicated by pseudocyst of the head and uncinate process of the pancreas on admission Patient oral intake has not been sufficient on account of pain; started on TPN Last CT scan of the abdomen done on 09/25/[address] changes of acute on chronic pancreatitis stable cirrhosis, pancreatic ductal dilatation and peripancreatic inflammation. Continue to encourage oral intake Continue on IV Zosyn GI following. General surgery recommended outpatient follow-up 2. Acute portal vein thrombosis, confirmed on last CT of the abdomen pelvis which showed stable thrombosis of the intrahepatic, hepatic and extrahepatic portal veins, continue heparin drip 3. Liver cirrhosis with anasarca, unclear etiology, LFTs are not elevated, continue on Lasix 4. Severe protein-calorie malnutrition, [employer] ax developer consulted, started on TPN 5. Hypokalemia, replace, recheck in a.m. 6. Acute blood loss anemia, hemoglobin has remained stable at 7.8 Status post EGD 7. Acute delirium, hypoactive, multifactorial, less likely from acute hepatic encephalopathy as LFTs and ammonia abnormal Will discontinue melatonin and trazodone for now Continue to monitor closely 8. Hyperthyroidism, continue methimazole 9. DVT ppx - heparin drip Charges/Coding Visit Charges Inpatient E&M: 95939 Subs Hosp L2
[2022-09-27] MEDS: TPN - Clinimix E 8%-14% Soln 2,000 ML with Multivitamins 10 ML, Trace Elements 1 ML, Fo... 42 ML IV (17:35)
[2022-09-27] MEDS: 0.9% Saline Lock 10 ML Syringe IV (17:35)
[2022-09-27] MEDS: Furosemide 40 MG/4 ML Vial IV (17:35)
[2022-09-27] MEDS: Atorvastatin Calcium 20 MG Tablet PO (21:10)
[2022-09-27] MEDS: oxyCODONE 5 MG Tablet 2.5 MG PO (21:11)
[2022-09-27 22:30] LABS: Bedside Glucose 238 mg/dL (74-106)
[2022-09-28] VITALS (12 sets, daily range): BP systolic 152–174; BP diastolic 70–87; PULSE 100–113; RESP 16–18; TEMP 36.7–38.2; O2SAT 93–97
[2022-09-28] MEDS: HEPARIN/D5w 25,000 UNITS 25,000 UNITS/250 ML IV.SOLN. 7 UNITS CONT INF (01:47)
[2022-09-28] MEDS: hydrALAZINE 20 MG/ML Vial 5 MG IV ×2 (03:52→15:39)
[2022-09-28] MEDS: Acetaminophen 325 MG Tablet 650 MG PO ×2 (03:53→22:46)
[2022-09-28] MEDS: 0.9% Saline Lock 10 ML Syringe IV ×2 (03:55→08:38)
[2022-09-28 06:08] LABS: Absolute Lymphocyte Count 0.66 X10^3/uL (0.83-4.51); Absolute Neutrophil Count 3.5 X10^3/uL (2.0-7.7); Basophil# 0.01 X10^3/uL; Basophil% 0.2 % (0-1); Eosinophil# 0.02 X10^3/uL; Eosinophils% 0.4 % (0-5); Hematocrit 22.2 % (40-54); Hemoglobin 7.1 g/dL (13.0-16.5); Lymphocyte # 0.66 X10^3/ul (0.83-4.51); Lymphocyte % 14.6 % (19-41); Mean Corpuscular Hgb 28.7 pg (27.0-32.0); Mean Corpuscular Volume 89.9 fL (80-94); Mean Platelet Vol. 9.3 fl (6.2-12.0); Monocyte# 0.28 X10^3/uL; Monocyte% 6.2 % (0-10); NRBC Flagged by Analyzer 0 % (0-5); Neutrophil # 3.52 X10^3/uL (2.7-7.7); Neutrophil % 77.9 % (47-70); POSITIVE MORPHOLOGY YES; Platelet Count 197 K/mm3 (150-450); RBC Distribution Width CV 14.8 % (11.6-14.6); Red Blood Count 2.47 M/mm3 (4.6-6.2); White Blood Count 4.5 K/mm3 (4.4-11.0)
[2022-09-28 06:35] LABS: Differential Indicated SCAN CRITERIA MET
[2022-09-28] MEDS: Insulin Lispro 100 UNIT/ML INSULN.PEN SC ×4 (06:36→22:47)
[2022-09-28] MEDS: Metoclopramide 5 MG TABLET PO ×3 (06:36→17:14)
[2022-09-28 06:39] LABS: ALB/GLOB Ratio 0.6 RATIO (0.9-2.4); AST(SGOT) 34 U/L (15-37); Alanine Aminotransfer ALT/SGPT 28 U/L (16-61); Albumin, Serum 2.5 g/dL (3.2-5.0); Alkaline Phosphatase 283 U/L (45-117); Anion Gap 9 (5-15); BUN 9 mg/dL (7-18); BUN/Creat Ratio 11.9 RATIO (10-20); Calcium,Total 7.4 mg/dL (8.5-10.1); Chloride 102 mmol/L (98-107); Creatinine, Serum 0.76 mg/dL (0.70-1.30); EST Glomerular Filtration Rate 114 mL/min (>60); Est Glom Filt Rate - Afr Amer 137 mL/min (>60); Estimated Creatinine Clearance 84.81 ml/min; Globulin 3.9 g/dL (2.2-4.2); Glucose 224 mg/dL (74-106); Magnesium 1.4 mg/dL (1.6-2.6); Phosphorus 2.7 mg/dL (2.5-4.9); Potassium 3.1 mmol/L (3.5-5.1); Protein, Total 6.4 g/dL (6.4-8.2); Sodium Level 135 mmol/L (136-145)
[2022-09-28 07:10] LABS: Bedside Glucose 215 mg/dL (74-106)
[2022-09-28 07:13] LABS: Differential Comment SCANNED
[2022-09-28 08:26] LABS: Partial Thromboplast Time 61.7 Seconds (24.1-36.2)
[2022-09-28] MEDS: Aspirin 81 MG TAB.CHEW PO (08:26)
[2022-09-28] MEDS: Lactulose 20 GM/30 ML UDC PO (08:27)
[2022-09-28] MEDS: Furosemide 40 MG/4 ML Vial IV ×2 (08:27→17:16)
[2022-09-28] MEDS: Sertraline 100 MG Tablet PO (08:27)
[2022-09-28] MEDS: Pantoprazole Sodium 40 MG Tablet PO (08:27)
[2022-09-28] MEDS: rifAXIMin 550 MG Tablet PO ×2 (08:27→22:47)
[2022-09-28] MEDS: methIMAzole 10 MG TABLET 30 MG PO (08:27)
[2022-09-28] MEDS: amLODIPine 5 MG Tablet PO (08:27)
[2022-09-28] MEDS: Creon 12,000 unit DR CapSULE 2 CAP PO ×3 (11:16→17:15)
[2022-09-28] MEDS: Potassium Chloride 10mEq/100mL 10 MEQ/100 ML IV.SOLN. 100 MEQ IV BOLUS ×4 (11:17→15:19)
[2022-09-28] MEDS: Magnesium Sulfate 4gm/100mL 4 GM/100 ML IV.SOLN. IV (11:17)
--- NOTE | 2022-09-28 11:28 | PCM.PN.HOSP ---
Subjective Subjective Follow-up on acute pancreatitis/pancreatic pseudocyst: Patient was seen and examined. He stated that his epigastric abdominal pain yesterday. He did not eat this morning because he did not feel like eating. He was started on TPN yesterday. Objective Data Objective Data Vital Signs: Vital Signs Temp Pulse Resp BP Pulse Ox O2 Del Method 98.7 F 100 16 156/70 H 97 Room Air 09/28/22 08:14 09/28/22 08:14 09/28/22 08:14 09/28/22 08:14 09/28/22 08:14 09/28/22 08:16 Oxygen Delivery Method Room Air Weight: 70.1 kg Body Mass Index (BMI) 22.3 Intake & Output: Intake and Output for Last 24 Hours 09/26/22 09/27/22 09/28/22 23:59 23:59 23:59 Intake Total 1496.66 / 1496.66 1315.4 / 1315.4 242.87 / 242.87 Output Total 650 / 650 1650 / 1650 Balance 846.66 / 846.66 -334.6 / -334.6 242.87 / 242.87 Medical Nutrition Assessment Dietitian: Malnutrition Criteria Met Start: 09/16/22 14:13 Freq: Status: Active Protocol: Document 09/27/22 14:09 RMA (Rec: 09/27/22 14:09 RMA [id number]) Nutrition Malnutrition Evidence of Malnutrition Exists Yes Malnutrition (severe): Acute Illness/Injury Evidenced By Suboptimal Energy Intake ( Severe),Weight Loss (Severe), Physical Changes (Severe) Intake Problem Inadequate Oral Intake Etiology related to altered GI function /inflammation Signs/Symptoms as evidenced by clear liquid diet and need for parenteral nutrition support Status Active Problem Clinical Problem Acute Disease or Injury Related Malnutrition Etiology severe, acute malnutrition related to inadequate energy intake d/t GI dysfunction Signs/Symptoms as evidenced by unintentional 45#/27% wt loss < 1 month; estimated PO intake meeting < 50% of estimated energy needs >5 days; severe muscle wasting /fat loss per physical exam Status Active Problem Recommendation Dietitian Recommendations/Changes Consult today to order and implement parenteral nutrition support. Will order TPN day #1: 1 L 8% amino acid/14% dextrose with electrolytes, MVI, folic acid and trace elements @ 42 ml/hr to provide 798 kcal, 140 gm dextrose, 80 gm protein. No lipids today. No insulin and no famotidine per provider. TPN will meet ~50% estimated calorie needs and ~100% estimated protein needs. Triglyceride level ordered 1 time per week; mag/phos ordered x 3 days. Will monitor daily weights, labs and electrolytes closely. Continue clear liquid diet as tolerated---will d/c ensure clear with meals. Resume solid foods as able with fat-restricted diet as indicated. Continue 120 ml ensure clear 4 times per day w/ medpass as tolerated. Lab / Micro Data Result Diagrams: 09/28/22 05:33 09/28/22 05:33 Labs: Laboratory Results - last 24 hr 09/27/22 06:36: Triglycerides 102 09/27/22 11:31: POC Glucose 222 H 09/27/22 16:57: POC Glucose 160 H 09/27/22 21:09: POC Glucose 238 H 09/28/22 05:33: WBC 4.5, RBC 2.47 L, Hgb 7.1 L, Hct 22.2 L, MCV 89.9, MCH 28.7, MCHC 32.0, RDW Std Deviation 47.0 H, RDW Coeff of Fili 14.8 H, Plt Count 197, MPV 9.3, Immature Gran % (Auto) 0.700, Neut % (Auto) 77.9 H, Lymph % (Auto) 14.6 L, [place] % (Auto) 6.2, Eos % (Auto) 0.4, Baso % (Auto) 0.2, Absolute Neuts (auto) 3.5, Absolute Lymphs (auto) 0.66 L, Nucleated RBC % 0, Differential Comment SCANNED 09/28/22 05:33: Sodium 135 L, Potassium 3.1 L, Chloride 102, Carbon Dioxide 24.0, Anion Gap 9, BUN 9, Creatinine 0.76, Estim Creat Clear Calc 84.81, Est GFR (MDRD) Af Amer 137, Est GFR (MDRD) Non-Af 114, BUN/Creatinine Ratio 11.9, Glucose 224 H, Calcium 7.4 L, Phosphorus 2.7, Magnesium 1.4 L, Total Bilirubin 0.50, AST 34, ALT 28, Alkaline Phosphatase 283 H, Total Protein 6.4, Albumin 2.5 L, Globulin 3.9, Albumin/Globulin Ratio 0.6 L 09/28/22 06:35: POC Glucose 215 H 09/28/22 07:51: APTT 61.7 H Micro: Microbiology 09/15/22 21:55 Blood Culture (Wb) - Right Forearm Blood Culture - Final No growth in 5 days. 09/15/22 21:44 Blood Culture (Wb) - Anticubital Right Blood Culture - Final No growth in 5 days. Physical Exam Narrative Physical exam: General: Alert, Oriented x3, Cooperative, appears frail, unwell HEENT: Atraumatic Oral: Moist Mucosa Neck: Supple Lungs: Diminished to auscultation Cardiovascular: HS I+II, regular, no murmurs Abdomen: Bowel Sounds Present, Soft, appears distended, epigastric tenderness without guarding or rebound tenderness Extremities:Bilateral leg edema +2, BRIDGETTE wraps to legs Skin: No rashes, No breakdown Neurological: Grossly intact Psych/Mental Status: Appropriate Assessment & Plan Assessment/Plan (1) Pancreatitis: QUALIFIERS: Chronicity: acute Pancreatitis type: unspecified pancreatitis type Acute pancreatitis complication: no infection or necrosis Qualified Code(s): K85.90 - Acute pancreatitis without necrosis or infection, unspecified (2) Hyperthyroidism: (3) Abnormal EKG: (4) Hyperkalemia: (5) Pancreatic pseudocyst: (6) Weight loss: (7) Encephalopathy: PLAN: Plan 1.Acute pancreatitis, unclear etiology, complicated by pseudocyst of the head and uncinate process of the pancreas on admission Patient oral intake has not been sufficient on account of pain; continue on TPN Last CT scan of the abdomen done on 09/25/[address] changes of acute on chronic pancreatitis stable cirrhosis, pancreatic ductal dilatation and peripancreatic inflammation. Continue to encourage oral intake Continue on IV Zosyn GI following. General surgery recommended outpatient follow-up 2. Acute portal vein thrombosis, confirmed on last CT of the abdomen pelvis which showed stable thrombosis of the intrahepatic, hepatic and extrahepatic portal veins, continue heparin drip 3. Liver cirrhosis with anasarca, unclear etiology, LFTs are not elevated, continue on Lasix 4. Severe protein-calorie malnutrition, energy efficiency specialist consulted, continue on TPN 5. Hypokalemia/hypomagnesemia, replaced, recheck in a.m. 6. Acute blood loss anemia, hemoglobin is 7.1 Status post EGD on 09/21/22 showed LA grade B erosive esophagitis, gastric antral vascular ectasia without bleeding, 1 nonbleeding duodenal ulcer with no stigmata of bleeding, biopsied. We will repeat H&H, will transfuse for hemoglobin less than 7. 7. Acute delirium, hypoactive, multifactorial, less likely from acute hepatic encephalopathy as LFTs and ammonia abnormal Delirium appears resolved, will continue to hold off melatonin, reintroduce trazodone 25 mg QHS 8. Hyperthyroidism, continue methimazole 9. DVT ppx - heparin drip Disposition: Anticipate eventual DC home with home health Charges/Coding Visit Charges Inpatient E&M: 16600 Subs Hosp L2
[2022-09-28 11:52] LABS: Hematocrit 24.6 % (40-54)
[2022-09-28 12:45] LABS: Bedside Glucose 231 mg/dL (74-106)
--- NOTE | 2022-09-28 16:55 | PN_ITS ---
Subjective Subjective Patient complains of bloating. He appears to be a lot more awake today. He did not eat much today. No bowel movements today. Objective Data Objective Data Vital Signs: Vital Signs Temp Pulse Resp BP Pulse Ox O2 Del Method 98.0 F 102 H 18 162/84 H 97 Room Air 09/28/22 15:28 09/28/22 15:39 09/28/22 15:28 09/28/22 15:39 09/28/22 15:28 09/28/22 15:28 Oxygen Delivery Method Room Air Weight: 154 lb 8.705 oz Body Mass Index (BMI) 22.3 Intake & Output: Intake and Output for Last 24 Hours 09/26/22 09/27/22 09/28/22 23:59 23:59 23:59 Intake Total 1496.66 / 1496.66 1315.4 / 1315.4 1042.87 / 1042.87 Output Total 650 / 650 1650 / 1650 Balance 846.66 / 846.66 -334.6 / -334.6 1042.87 / 1042.87 Medical Nutrition Assessment Dietitian: Malnutrition Criteria Met Start: 09/16/22 14:13 Freq: Status: Active Protocol: Document 09/27/22 14:09 RMA (Rec: 09/27/22 14:09 RMA [id number]) Nutrition Malnutrition Evidence of Malnutrition Exists Yes Malnutrition (severe): Acute Illness/Injury Evidenced By Suboptimal Energy Intake ( Severe),Weight Loss (Severe), Physical Changes (Severe) Intake Problem Inadequate Oral Intake Etiology related to altered GI function /inflammation Signs/Symptoms as evidenced by clear liquid diet and need for parenteral nutrition support Status Active Problem Clinical Problem Acute Disease or Injury Related Malnutrition Etiology severe, acute malnutrition related to inadequate energy intake d/t GI dysfunction Signs/Symptoms as evidenced by unintentional 45#/27% wt loss < 1 month; estimated PO intake meeting < 50% of estimated energy needs >5 days; severe muscle wasting /fat loss per physical exam Status Active Problem Recommendation Dietitian Recommendations/Changes Consult today to order and implement parenteral nutrition support. Will order TPN day #1: 1 L 8% amino acid/14% dextrose with electrolytes, MVI, folic acid and trace elements @ 42 ml/hr to provide 798 kcal, 140 gm dextrose, 80 gm protein. No lipids today. No insulin and no famotidine per provider. TPN will meet ~50% estimated calorie needs and ~100% estimated protein needs. Triglyceride level ordered 1 time per week; mag/phos ordered x 3 days. Will monitor daily weights, labs and electrolytes closely. Continue clear liquid diet as tolerated---will d/c ensure clear with meals. Resume solid foods as able with fat-restricted diet as indicated. Continue 120 ml ensure clear 4 times per day w/ medpass as tolerated. Lab / Micro Data Result Diagrams: 09/28/22 11:37 09/28/22 05:33 Labs: Laboratory Results - last 24 hr 09/27/22 16:57: POC Glucose 160 H 09/27/22 21:09: POC Glucose 238 H 09/28/22 05:33: WBC 4.5, RBC 2.47 L, Hgb 7.1 L, Hct 22.2 L, MCV 89.9, MCH 28.7, MCHC 32.0, RDW Std Deviation 47.0 H, RDW Coeff of Fili 14.8 H, Plt Count 197, MPV 9.3, Immature Gran % (Auto) 0.700, Neut % (Auto) 77.9 H, Lymph % (Auto) 14.6 L, [place] % (Auto) 6.2, Eos % (Auto) 0.4, Baso % (Auto) 0.2, Absolute Neuts (auto) 3.5, Absolute Lymphs (auto) 0.66 L, Nucleated RBC % 0, Differential Comment SCANNED 09/28/22 05:33: Sodium 135 L, Potassium 3.1 L, Chloride 102, Carbon Dioxide 24.0, Anion Gap 9, BUN 9, Creatinine 0.76, Estim Creat Clear Calc 84.81, Est GFR (MDRD) Af Amer 137, Est GFR (MDRD) Non-Af 114, BUN/Creatinine Ratio 11.9, Glucose 224 H, Calcium 7.4 L, Phosphorus 2.7, Magnesium 1.4 L, Total Bilirubin 0.50, AST 34, ALT 28, Alkaline Phosphatase 283 H, Total Protein 6.4, Albumin 2.5 L, Globulin 3.9, Albumin/Globulin Ratio 0.6 L 09/28/22 06:35: POC Glucose 215 H 09/28/22 07:51: APTT 61.7 H 09/28/22 11:29: POC Glucose 231 H 09/28/22 11:37: Hgb 8.0 L, Hct 24.6 L Micro: Microbiology 09/15/22 21:55 Blood Culture (Wb) - Right Forearm Blood Culture - Final No growth in 5 days. 09/15/22 21:44 Blood Culture (Wb) - Anticubital Right Blood Culture - Final No growth in 5 days. Assessment & Plan Assessment/Plan (1) Encephalopathy: PLAN: Mild encephalopathy from unknown cause. Possibly secondary to systemic inflammatory reaction secondary to pancreatitis with a coexisting Warnicke's encephalopathy from previous alcohol usage. He has no history of cirrhosis that is documented or seen and imaging thus far. His ammonia level was normal. I would have him on Xifaxan 550 mg twice a day and lactulose 30 cc twice a day as he is not eating much and it may help with bowel decontamination to help prevent SBP (2) Portal vein thrombosis: PLAN: . Portal vein thrombosis without splenic vein thrombosis possibly secondary to severe acute pancreatitis in the setting of possible chronic pancreatitis. I do not now if he has any history of chronic pancreatitis as we cannot tell from our imaging because he presented with severe acute pancreatitis. No calcifications are seen on imaging. (3) Pancreatitis: QUALIFIERS: Chronicity: acute Pancreatitis type: unspecified pancreatitis type Acute pancreatitis complication: no infection or necrosis Qualified Code(s): K85.90 - Acute pancreatitis without necrosis or infection, unspecified PLAN: Very cute pancreatitis by CT criteria. Continue TPN. Albumin can be stopped. Continue Reglan and PPI therapy. (4) Pancreatic pseudocyst: PLAN: . History of pancreatic pseudocyst without signs of gastric outlet obs truction at this time. Charges/Coding Visit Charges Inpatient E&M: 94259 Subs Hosp L3
[2022-09-28] MEDS: TPN - Clinimix E 8%-14% Soln 2,000 ML with Multivitamins 10 ML, Trace Elements 1 ML, Fo... 63 ML IV (17:16)
[2022-09-28 18:01] LABS: Bedside Glucose 216 mg/dL (74-106)
[2022-09-28] MEDS: traZODone 50 MG Tablet 25 MG PO (22:46)
[2022-09-28] MEDS: Atorvastatin Calcium 20 MG Tablet PO (22:47)
[2022-09-29] VITALS (13 sets, daily range): BP systolic 136–153; BP diastolic 77–97; PULSE 86–100; RESP 16–18; TEMP 2.6–36.9; O2SAT 96–100
[2022-09-29 00:06] LABS: Bedside Glucose 259 mg/dL (74-106)
[2022-09-29] MEDS: oxyCODONE 5 MG Tablet 2.5 MG PO (03:21)
[2022-09-29] MEDS: Metoclopramide 5 MG TABLET PO ×3 (06:24→15:59)
[2022-09-29] MEDS: Insulin Lispro 100 UNIT/ML INSULN.PEN SC ×4 (06:27→22:05)
[2022-09-29 06:51] LABS: Bedside Glucose 255 mg/dL (74-106)
[2022-09-29 07:20] LABS: Absolute Lymphocyte Count 0.97 X10^3/uL (0.83-4.51); Absolute Neutrophil Count 2.5 X10^3/uL (2.0-7.7); Basophil# 0.01 X10^3/uL; Basophil% 0.3 % (0-1); Eosinophil# 0.04 X10^3/uL; Hematocrit 23.8 % (40-54); Hemoglobin 7.3 g/dL (13.0-16.5); Lymphocyte # 0.97 X10^3/ul (0.83-4.51); Lymphocyte % 25.4 % (19-41); Mean Corp Hgb Conc 30.7 g/dL (32-36); Mean Corpuscular Hgb 27.7 pg (27.0-32.0); Mean Corpuscular Volume 90.2 fL (80-94); Mean Platelet Vol. 9.7 fl (6.2-12.0); Monocyte# 0.31 X10^3/uL; Monocyte% 8.1 % (0-10); NRBC Flagged by Analyzer 0 % (0-5); Neutrophil # 2.45 X10^3/uL (2.7-7.7); Neutrophil % 64.2 % (47-70); POSITIVE MORPHOLOGY YES; Platelet Count 188 K/mm3 (150-450); RBC Distribution Width CV 14.7 % (11.6-14.6); RBC Distribution Width SD 46.7 fl (35.1-43.9); Red Blood Count 2.64 M/mm3 (4.6-6.2); White Blood Count 3.8 K/mm3 (4.4-11.0)
[2022-09-29 07:23] LABS: Differential Indicated SCAN CRITERIA MET
[2022-09-29 07:54] LABS: ALB/GLOB Ratio 0.6 RATIO (0.9-2.4); AST(SGOT) 28 U/L (15-37); Alanine Aminotransfer ALT/SGPT 26 U/L (16-61); Albumin, Serum 2.5 g/dL (3.2-5.0); Alkaline Phosphatase 259 U/L (45-117); Anion Gap 6 (5-15); BUN 15 mg/dL (7-18); BUN/Creat Ratio 24.6 RATIO (10-20); Calcium,Total 7.5 mg/dL (8.5-10.1); Chloride 97 mmol/L (98-107); Creatinine, Serum 0.61 mg/dL (0.70-1.30); EST Glomerular Filtration Rate 145 mL/min (>60); Est Glom Filt Rate - Afr Amer 176 mL/min (>60); Estimated Creatinine Clearance 105.67 ml/min; Globulin 4.1 g/dL (2.2-4.2); Glucose 264 mg/dL (74-106); Magnesium 2.1 mg/dL (1.6-2.6); Protein, Total 6.6 g/dL (6.4-8.2); Sodium Level 131 mmol/L (136-145)
[2022-09-29 07:59] LABS: Reactive Lymphocyte RARE
[2022-09-29] MEDS: amLODIPine 5 MG Tablet PO (08:03)
[2022-09-29] MEDS: Creon 12,000 unit DR CapSULE 2 CAP PO ×3 (08:03→16:01)
[2022-09-29] MEDS: Sertraline 100 MG Tablet PO (08:03)
[2022-09-29] MEDS: Pantoprazole Sodium 40 MG Tablet PO (08:03)
[2022-09-29] MEDS: Aspirin 81 MG TAB.CHEW PO (08:03)
[2022-09-29 08:48] LABS: Partial Thromboplast Time 34.6 Seconds (24.1-36.2)
[2022-09-29] MEDS: Heparin Injection (Vial) 5,000 UNIT/ML VIAL IV (08:53)
[2022-09-29] MEDS: Lactulose 20 GM/30 ML UDC PO (10:59)
[2022-09-29] MEDS: methIMAzole 10 MG TABLET 30 MG PO (10:59)
[2022-09-29] MEDS: rifAXIMin 550 MG Tablet PO ×2 (10:59→21:44)
[2022-09-29] MEDS: Furosemide 40 MG/4 ML Vial IV ×2 (10:59→17:09)
[2022-09-29] MEDS: 0.9% Saline Lock 10 ML Syringe IV ×3 (11:04→17:09)
[2022-09-29 11:31] LABS: Bedside Glucose 257 mg/dL (74-106)
[2022-09-29] MEDS: Potassium Chloride 10mEq/100mL 10 MEQ/100 ML IV.SOLN. 100 MEQ IV BOLUS ×6 (13:30→23:28)
[2022-09-29] MEDS: HEPARIN/D5w 25,000 UNITS 25,000 UNITS/250 ML IV.SOLN. 9 UNITS CONT INF (14:31)
[2022-09-29 15:38] LABS: Partial Thromboplast Time 85.7 Seconds (24.1-36.2)
--- NOTE | 2022-09-29 15:48 | CASEMGMT ---
Therapy is recommending patient go somewhere for rehab. Physician spoke with patient and he was not opposed to going somewhere. SW went to patient's room. Introduced self and role at [facility]. Patient confirmed he will talk with his about placement. SW provided him with a list of correction facility?providers including quality and resource use data and consistent with patient?s preferred geographic region, medical needs, and insurance network were provided from the [employer] Guide. SW told patient that he will need to pick at least 3 facilities he would be willing to go to and SW will call the facilities. Trinidad Del Rio PULLMAN CAR CLERKChiara ESPINO
[2022-09-29 16:50] LABS: Bedside Glucose 291 mg/dL (74-106)
--- NOTE | 2022-09-29 21:27 | PN.HOSP_ITS ---
Subjective Subjective Follow-up on acute pancreatitis/pancreatic pseudocyst: Patient was seen and examined. He complains of poor appetite because he does not like the food here. He did eat solid food yesterday and appeared to tolerate it. I asked that he could ask his family to bring him food. Discussed with nutrition, would not resume TPN is able to tolerate oral food. Objective Data Objective Data Vital Signs: Vital Signs Temp Pulse Resp BP Pulse Ox O2 Del Method 98.5 F 89 18 138/97 H 100 Room Air 09/29/22 16:10 09/29/22 16:10 09/29/22 16:10 09/29/22 16:10 09/29/22 16:26 09/29/22 16:10 Oxygen Delivery Method Room Air Weight: 66.1 kg Body Mass Index (BMI) 22.3 Intake & Output: Intake and Output for Last 24 Hours 09/27/22 09/28/22 09/29/22 23:59 23:59 23:59 Intake Total 1315.4 / 1315.4 2106.47 / 2106.47 2247.95 / 2247.95 Output Total 1650 / 1650 200 / 200 3050 / 3050 Balance -334.6 / -334.6 1906.47 / 1906.47 -802.05 / -802.05 Medical Nutrition Assessment Dietitian: Malnutrition Criteria Met Start: 09/16/22 14:13 Freq: Status: Active Protocol: Document 09/27/22 14:09 RMA (Rec: 09/27/22 14:09 RMA [id number]) Nutrition Malnutrition Evidence of Malnutrition Exists Yes Malnutrition (severe): Acute Illness/Injury Evidenced By Suboptimal Energy Intake ( Severe),Weight Loss (Severe), Physical Changes (Severe) Intake Problem Inadequate Oral Intake Etiology related to altered GI function /inflammation Signs/Symptoms as evidenced by clear liquid diet and need for parenteral nutrition support Status Active Problem Clinical Problem Acute Disease or Injury Related Malnutrition Etiology severe, acute malnutrition related to inadequate energy intake d/t GI dysfunction Signs/Symptoms as evidenced by unintentional 45#/27% wt loss < 1 month; estimated PO intake meeting < 50% of estimated energy needs >5 days; severe muscle wasting /fat loss per physical exam Status Active Problem Recommendation Dietitian Recommendations/Changes Consult today to order and implement parenteral nutrition support. Will order TPN day #1: 1 L 8% amino acid/14% dextrose with electrolytes, MVI, folic acid and trace elements @ 42 ml/hr to provide 798 kcal, 140 gm dextrose, 80 gm protein. No lipids today. No insulin and no famotidine per provider. TPN will meet ~50% estimated calorie needs and ~100% estimated protein needs. Triglyceride level ordered 1 time per week; mag/phos ordered x 3 days. Will monitor daily weights, labs and electrolytes closely. Continue clear liquid diet as tolerated---will d/c ensure clear with meals. Resume solid foods as able with fat-restricted diet as indicated. Continue 120 ml ensure clear 4 times per day w/ medpass as tolerated. Lab / Micro Data Result Diagrams: 09/29/22 06:30 09/29/22 06:30 Labs: Laboratory Results - last 24 hr 09/28/22 22:42: POC Glucose 259 H 09/29/22 06:26: POC Glucose 255 H 09/29/22 06:30: WBC 3.8 L, RBC 2.64 L, Hgb 7.3 L, Hct 23.8 L, MCV 90.2, MCH 27.7, MCHC 30.7 L, RDW Std Deviation 46.7 H, RDW Coeff of Fili 14.7 H, Plt Count 188, MPV 9.7, Immature Gran % (Auto) 1.000 H, Neut % (Auto) 64.2, Lymph % (Auto) 25.4, [place] % (Auto) 8.1, Eos % (Auto) 1.0, Baso % (Auto) 0.3, Absolute Neuts (auto) 2.5, Absolute Lymphs (auto) 0.97, Nucleated RBC % 0, Reactive Lymphocytes RARE 09/29/22 06:30: Sodium 131 L, Potassium 3.0 L, Chloride 97 L, Carbon Dioxide 28.0, Anion Gap 6, BUN 15, Creatinine 0.61 L, Estim Creat Clear Calc 105.67, Est GFR (MDRD) Af Amer 176, Est GFR (MDRD) Non-Af 145, BUN/Creatinine Ratio 24.6 H, Glucose 264 H, Calcium 7.5 L, Phosphorus 3.0, Magnesium 2.1, Total Bilirubin 0.50, AST 28, ALT 26, Alkaline Phosphatase 259 H, Total Protein 6.6, Albumin 2.5 L, Globulin 4.1, Albumin/Globulin Ratio 0.6 L 09/29/22 06:30: APTT 34.6 09/29/22 11:00: POC Glucose 257 H 09/29/22 15:10: APTT 85.7 H 09/29/22 15:58: POC Glucose 291 H Micro: Microbiology 09/15/22 21:55 Blood Culture (Wb) - Right Forearm Blood Culture - Final No growth in 5 days. 09/15/22 21:44 Blood Culture (Wb) - Anticubital Right Blood Culture - Final No growth in 5 days. Physical Exam Narrative Physical exam: General: Alert, Oriented x3, Cooperative, appears frail, unwell HEENT: Atraumatic Oral: Moist Mucosa Neck: Supple Lungs: Diminished to auscultation Cardiovascular: HS I+II, regular, no murmurs Abdomen: Bowel Sounds Present, Soft, appears distended, epigastric tenderness without guarding or rebound tenderness Extremities:Bilateral leg edema +2, BRIDGETTE wraps to legs Skin: No rashes, No breakdown Neurological: Grossly intact Psych/Mental Status: Appropriate Assessment & Plan Assessment/Plan (1) Pancreatitis: QUALIFIERS: Chronicity: acute Pancreatitis type: unspecified panc reatitis type Acute pancreatitis complication: no infection or necrosis Qualified Code(s): K85.90 - Acute pancreatitis without necrosis or infection, unspecified (2) Hyperthyroidism: (3) Abnormal EKG: (4) Hyperkalemia: (5) Pancreatic pseudocyst: (6) Weight loss: (7) Encephalopathy: PLAN: Plan 1.Acute pancreatitis, unclear etiology, complicated by pseudocyst of the head and uncinate process of the pancreas on admission Patient had good oral intake yesterday, will discontinue TPN for now Last CT scan of the abdomen done on 09/25/[address] changes of acute on chronic pancreatitis stable cirrhosis, pancreatic ductal dilatation and peripancreatic inflammation. Continue to encourage oral intake Continue on IV Zosyn - will aim for total of 7-10 days GI following. General surgery recommended outpatient follow-up 2. Acute portal vein thrombosis, confirmed on last CT of the abdomen pelvis which showed stable thrombosis of the intrahepatic, hepatic and extrahepatic portal veins, continue heparin drip 3. Liver cirrhosis with anasarca, unclear etiology, LFTs are not elevated, continue on Lasix 4. Severe protein-calorie malnutrition, manager user experience consulted, will encourage oral intake 5. Hypokalemia, replaced, recheck in a.m. 6. Acute blood loss anemia, hemoglobin is 7.3 Status post EGD on 09/21/22 showed LA grade B erosive esophagitis, gastric antral vascular ectasia without bleeding, 1 nonbleeding duodenal ulcer with no stigmata of bleeding, biopsied. We will repeat H&H, will transfuse for hemoglobin less than 7. 7. Acute delirium, hypoactive, multifactorial, less likely from acute hepatic encephalopathy as LFTs and ammonia abnormal Delirium appears resolved, will continue to hold off melatonin, reintroduce trazodone 25 mg QHS 8. Hyperthyroidism, continue methimazole 9. DVT ppx - heparin drip Disposition: [facility] vs SNF Charges/Coding Visit Charges Inpatient E&M: 49081 Subs Hosp L2
[2022-09-29] MEDS: traZODone 50 MG Tablet 25 MG PO (21:41)
[2022-09-29] MEDS: Ensure Clear 120 ML Liquid PO (21:42)
[2022-09-29] MEDS: Atorvastatin Calcium 20 MG Tablet PO (21:43)
[2022-09-29 23:00] LABS: Bedside Glucose 185 mg/dL (74-106)
[2022-09-29 23:02] LABS: Partial Thromboplast Time 86.8 Seconds (24.1-36.2)
[2022-09-30] VITALS (11 sets, daily range): BP systolic 126–153; BP diastolic 81–92; PULSE 89–109; RESP 18; TEMP 36.6–37.2; O2SAT 92–100
[2022-09-30] MEDS: Potassium Chloride 10mEq/100mL 10 MEQ/100 ML IV.SOLN. 100 MEQ IV BOLUS ×2 (01:44→02:29)
[2022-09-30 05:54] LABS: Absolute Neutrophil Count 2.8 X10^3/uL (2.0-7.7); Basophil# 0.02 X10^3/uL; Basophil% 0.4 % (0-1); Eosinophil# 0.08 X10^3/uL; Eosinophils% 1.7 % (0-5); Hematocrit 26.4 % (40-54); Hemoglobin 8.5 g/dL (13.0-16.5); Lymphocyte % 29.6 % (19-41); Mean Corp Hgb Conc 32.2 g/dL (32-36); Mean Corpuscular Hgb 28.6 pg (27.0-32.0); Mean Corpuscular Volume 88.9 fL (80-94); Mean Platelet Vol. 9.3 fl (6.2-12.0); Monocyte# 0.38 X10^3/uL; NRBC Flagged by Analyzer 0 % (0-5); Neutrophil # 2.82 X10^3/uL (2.7-7.7); Neutrophil % 59.7 % (47-70); POSITIVE MORPHOLOGY YES; Platelet Count 186 K/mm3 (150-450); RBC Distribution Width CV 14.9 % (11.6-14.6); RBC Distribution Width SD 46.6 fl (35.1-43.9); Red Blood Count 2.97 M/mm3 (4.6-6.2); White Blood Count 4.7 K/mm3 (4.4-11.0)
[2022-09-30 05:58] LABS: Differential Indicated SCAN CRITERIA MET
[2022-09-30 06:29] LABS: Partial Thromboplast Time 66.2 Seconds (24.1-36.2)
[2022-09-30 06:31] LABS: ALB/GLOB Ratio 0.6 RATIO (0.9-2.4); AST(SGOT) 56 U/L (15-37); Alanine Aminotransfer ALT/SGPT 38 U/L (16-61); Albumin, Serum 2.7 g/dL (3.2-5.0); Alkaline Phosphatase 307 U/L (45-117); Anion Gap 7 (5-15); BUN 14 mg/dL (7-18); BUN/Creat Ratio 16.9 RATIO (10-20); Calcium,Total 8.3 mg/dL (8.5-10.1); Chloride 95 mmol/L (98-107); Creatinine, Serum 0.83 mg/dL (0.70-1.30); EST Glomerular Filtration Rate 103 mL/min (>60); Est Glom Filt Rate - Afr Amer 124 mL/min (>60); Estimated Creatinine Clearance 77.66 ml/min; Globulin 4.5 g/dL (2.2-4.2); Glucose 152 mg/dL (74-106); Magnesium 1.8 mg/dL (1.6-2.6); Potassium 3.8 mmol/L (3.5-5.1); Protein, Total 7.2 g/dL (6.4-8.2); Sodium Level 132 mmol/L (136-145)
[2022-09-30 06:52] LABS: Atypical Lymphocyte RARE %; Differential Comment SCANNED
[2022-09-30] MEDS: Insulin Lispro 100 UNIT/ML INSULN.PEN SC ×4 (06:53→23:09)
[2022-09-30] MEDS: Metoclopramide 5 MG TABLET PO ×3 (06:53→16:34)
[2022-09-30 07:25] LABS: Bedside Glucose 165 mg/dL (74-106)
[2022-09-30] MEDS: Creon 12,000 unit DR CapSULE 2 CAP PO ×3 (07:52→16:34)
[2022-09-30] MEDS: methIMAzole 10 MG TABLET 30 MG PO (07:52)
[2022-09-30] MEDS: amLODIPine 5 MG Tablet PO (07:52)
[2022-09-30] MEDS: Sertraline 100 MG Tablet PO (07:52)
[2022-09-30] MEDS: Aspirin 81 MG TAB.CHEW PO (07:52)
[2022-09-30] MEDS: Pantoprazole Sodium 40 MG Tablet PO (07:52)
[2022-09-30] MEDS: 0.9% Saline Lock 10 ML Syringe IV ×3 (07:52→18:38)
[2022-09-30] MEDS: Furosemide 40 MG/4 ML Vial IV ×2 (10:24→18:38)
[2022-09-30] MEDS: Lactulose 20 GM/30 ML UDC PO ×2 (10:24→23:09)
[2022-09-30] MEDS: rifAXIMin 550 MG Tablet PO ×2 (10:24→23:11)
[2022-09-30 11:23] LABS: Partial Thromboplast Time 53.4 Seconds (24.1-36.2)
--- NOTE | 2022-09-30 11:29 | CASEMGMT ---
BOY spoke with patient and his . BOY introduced self and role at [facility]. SW mentioned therapy is recommending patient go somewhere for skilled therapy. SW asked if they discussed this at all. Patient's feels patient will be fine at home. She has seen him up and moving around and feels like he will be fine to go home. Patient is active with home health already so they would continue those services. BOY let them know we will make sure the home health agency knows when he is discharged. BOY notified MARCK Vazquez Plan: d/c home with resumption of home health. Trinidad Del Rio PIPED BUTTONHOLE MACHINE OPERATOR KENZIE
[2022-09-30] MEDS: Heparin Injection (Vial) 5,000 UNIT/ML VIAL IV (11:45)
[2022-09-30 11:55] LABS: Bedside Glucose 181 mg/dL (74-106)
[2022-09-30 16:29] LABS: Partial Thromboplast Time 87.1 Seconds (24.1-36.2)
[2022-09-30 17:04] LABS: Free T3 0.9 pg/mL (2.18-3.98); T4 Free Direct 0.64 ng/dL (0.76-1.46); Thyroid Stim Hormone (TSH) 0.05 uIU/mL (0.358-3.74)
[2022-09-30 17:10] LABS: Bedside Glucose 171 mg/dL (74-106)
[2022-09-30] MEDS: traZODone 50 MG Tablet 25 MG PO (18:38)
--- NOTE | 2022-09-30 18:58 | PCM.PN.HOSP ---
Subjective Subjective Follow-up on acute pancreatitis/pancreatic pseudocyst: Patient was seen and examined.? He denied any new complaints. Patient's and daughter at the bedside. Patient was said to be confused according to them. Nursing reports that patient is intermittently confused. Objective Data Objective Data Vital Signs: Vital Signs Temp Pulse Resp BP Pulse Ox O2 Del Method 97.9 F 109 H 18 126/92 H 96 Room Air 09/30/22 16:32 09/30/22 16:32 09/30/22 16:32 09/30/22 16:32 09/30/22 16:32 09/30/22 16:32 Oxygen Delivery Method Room Air Weight: 63.8 kg Body Mass Index (BMI) 22.3 Intake & Output: Intake and Output for Last 24 Hours 09/28/22 09/29/22 09/30/22 23:59 23:59 23:59 Intake Total 2106.47 / 2106.47 2405.82 / 2405.82 873.71 / 873.71 Output Total 200 / 200 3050 / 3700 2650 / 2650 Balance 1906.47 / 1906.47 -644.18 / -1294.18 -1776.29 / -1776.29 Medical Nutrition Assessment Dietitian: Malnutrition Criteria Met Start: 09/16/22 14:13 Freq: Status: Active Protocol: Document 09/27/22 14:09 RMA (Rec: 09/27/22 14:09 RMA [id number]) Nutrition Malnutrition Evidence of Malnutrition Exists Yes Malnutrition (severe): Acute Illness/Injury Evidenced By Suboptimal Energy Intake ( Severe),Weight Loss (Severe), Physical Changes (Severe) Intake Problem Inadequate Oral Intake Etiology related to altered GI function /inflammation Signs/Symptoms as evidenced by clear liquid diet and need for parenteral nutrition support Status Active Problem Clinical Problem Acute Disease or Injury Related Malnutrition Etiology severe, acute malnutrition related to inadequate energy intake d/t GI dysfunction Signs/Symptoms as evidenced by unintentional 45#/27% wt loss < 1 month; estimated PO intake meeting < 50% of estimated energy needs >5 days; severe muscle wasting /fat loss per physical exam Status Active Problem Recommendation Dietitian Recommendations/Changes Consult today to order and implement parenteral nutrition support. Will order TPN day #1: 1 L 8% amino acid/14% dextrose with electrolytes, MVI, folic acid and trace elements @ 42 ml/hr to provide 798 kcal, 140 gm dextrose, 80 gm protein. No lipids today. No insulin and no famotidine per provider. TPN will meet ~50% estimated calorie needs and ~100% estimated protein needs. Triglyceride level ordered 1 time per week; mag/phos ordered x 3 days. Will monitor daily weights, labs and electrolytes closely. Continue clear liquid diet as tolerated---will d/c ensure clear with meals. Resume solid foods as able with fat-restricted diet as indicated. Continue 120 ml ensure clear 4 times per day w/ medpass as tolerated. Lab / Micro Data Result Diagrams: 09/30/22 05:35 09/30/22 05:35 Labs: Laboratory Results - last 24 hr 09/29/22 22:04: POC Glucose 185 H 09/29/22 22:10: APTT 86.8 H 09/30/22 05:35: WBC 4.7, RBC 2.97 L, Hgb 8.5 L, Hct 26.4 L, MCV 88.9, MCH 28.6, MCHC 32.2, RDW Std Deviation 46.6 H, RDW Coeff of Fili 14.9 H, Plt Count 186, MPV 9.3, Immature Gran % (Auto) 0.600, Neut % (Auto) 59.7, Lymph % (Auto) 29.6, [place] % (Auto) 8.0, Eos % (Auto) 1.7, Baso % (Auto) 0.4, Absolute Neuts (auto) 2.8, Absolute Lymphs (auto) 1.40, Nucleated RBC % 0, Differential Comment SCANNED, Atypical Lymphocytes RARE 09/30/22 05:35: Sodium 132 L, Potassium 3.8, Chloride 95 L, Carbon Dioxide 30.0, Anion Gap 7, BUN 14, Creatinine 0.83, Estim Creat Clear Calc 77.66, Est GFR (MDRD) Af Amer 124, Est GFR (MDRD) Non-Af 103, BUN/Creatinine Ratio 16.9, Glucose 152 H, Calcium 8.3 L, Phosphorus 3.0, Magnesium 1.8, Total Bilirubin 0.50, AST 56 H, ALT 38, Alkaline Phosphatase 307 H, Total Protein 7.2, Albumin 2.7 L, Globulin 4.5 H, Albumin/Globulin Ratio 0.6 L 09/30/22 05:35: APTT 66.2 H 09/30/22 05:35: TSH 0.05 L, Free T4 0.64 L, Free T3 pg/dL 0.9 L 09/30/22 06:51: POC Glucose 165 H 09/30/22 10:40: APTT 53.4 H 09/30/22 11:17: POC Glucose 181 H 09/30/22 15:50: APTT 87.1 H 09/30/22 16:33: POC Glucose 171 H Micro: Microbiology 09/15/22 21:55 Blood Culture (Wb) - Right Forearm Blood Culture - Final No growth in 5 days. 09/15/22 21:44 Blood Culture (Wb) - Anticubital Right Blood Culture - Final No growth in 5 days. Physical Exam Narrative Physical exam: General: Alert, Oriented x3, Cooperative, appears frail, unwell HEENT: Atraumatic Oral: Moist Mucosa Neck: Supple Lungs: Diminished to auscultation Cardiovascular: HS I+II, regular, no murmurs Abdomen: Bowel Sounds Present, Soft, appears distended, epigastric tenderness without guarding or rebound tenderness Extremities:Bilateral leg edema +2, BRIDGETTE wraps to legs Skin: No rashes, No breakdown Neurological: Grossly intact Psych/Mental Status: Appropriate Assessment & Plan Assessment/Plan (1) Pancreatitis: QUALIFIERS: Chronicity: acute Pancreatitis type: unspecified pancreatitis type Acute pancreatitis complication: no infection or necrosis Qualified Code(s): K85.90 - Acute pancreatitis without necrosis or infection, unspecified (2) Hyperthyroidism: (3) Abnormal EKG: (4) Hyperkalemia: (5) Pancreatic pseudocyst: (6) Weight loss: (7) Encephalopathy: PLAN: Plan 1.Acute pancreatitis, unclear etiology, complicated by pseudocyst of the head and uncinate process of the pancreas on admission Patient had good oral intake today Last CT scan of the abdomen done on 09/25/[address] changes of acute on chronic pancreatitis stable cirrhosis, pancreatic ductal dilatation and peripancreatic inflammation. Continue to encourage oral intake Continue on IV Zosyn - will aim for total of 7-10 days GI following. General surgery recommended outpatient follow-up 2. Acute portal vein thrombosis, confirmed on last CT of the abdomen pelvis which showed stable thrombosis of the intrahepatic, hepatic and extrahepatic portal veins, continue heparin drip 3. Liver cirrhosis with anasarca, unclear etiology, LFTs are not elevated, continue on Lasix 4. Severe protein-calorie malnutrition, gore maker consulted, will encourage oral intake 5. Hypokalemia, replaced, recheck in a.m. 6. Acute blood loss anemia, hemoglobin is 8.5 Status post EGD on 09/21/22 showed LA grade B erosive esophagitis, gastric antral vascular ectasia without bleeding, 1 nonbleeding duodenal ulcer with no stigmata of bleeding, biopsied. We will repeat H&H, will transfuse for hemoglobin less than 7. 7. Acute delirium, hypoactive, multifactorial, less likely from acute hepatic encephalopathy as LFTs and ammonia abnormal Delirium appears resolved, will continue to hold off melatonin, reintroduce trazodone 25 mg QHS 8. Hyperthyroidism, continue methimazole 9. DVT ppx - heparin drip Disposition: [facility] Charges/Coding Visit Charges Inpatient E&M: 45107 Subs Hosp L1
[2022-09-30] MEDS: Atorvastatin Calcium 20 MG Tablet PO (23:10)
[2022-09-30] MEDS: Ensure Clear 120 ML Liquid PO (23:17)
[2022-09-30 23:29] LABS: Partial Thromboplast Time 81.6 Seconds (24.1-36.2)
[2022-09-30 23:40] LABS: Bedside Glucose 182 mg/dL (74-106)
[2022-10-01] VITALS (12 sets, daily range): BP systolic 112–158; BP diastolic 76–94; PULSE 79–108; RESP 16–20; TEMP 36.8–37.2; O2SAT 92–97
[2022-10-01] MEDS: Metoclopramide 5 MG TABLET PO ×2 (05:12→16:25)
[2022-10-01 05:51] LABS: Partial Thromboplast Time 69.1 Seconds (24.1-36.2)
[2022-10-01] MEDS: Insulin Lispro 100 UNIT/ML INSULN.PEN SC ×4 (06:28→20:35)
[2022-10-01 07:01] LABS: Bedside Glucose 158 mg/dL (74-106)
[2022-10-01 08:18] LABS: ALB/GLOB Ratio 0.6 RATIO (0.9-2.4); AST(SGOT) 70 U/L (15-37); Alanine Aminotransfer ALT/SGPT 46 U/L (16-61); Albumin, Serum 2.7 g/dL (3.2-5.0); Alkaline Phosphatase 283 U/L (45-117); Anion Gap 7 (5-15); BUN 12 mg/dL (7-18); BUN/Creat Ratio 11.9 RATIO (10-20); Calcium,Total 8.2 mg/dL (8.5-10.1); Chloride 96 mmol/L (98-107); Creatinine, Serum 1.01 mg/dL (0.70-1.30); EST Glomerular Filtration Rate 81 mL/min (>60); Est Glom Filt Rate - Afr Amer 98 mL/min (>60); Estimated Creatinine Clearance 63.82 ml/min; Globulin 4.2 g/dL (2.2-4.2); Glucose 156 mg/dL (74-106); Magnesium 1.8 mg/dL (1.6-2.6); Phosphorus 4.3 mg/dL (2.5-4.9); Potassium 3.2 mmol/L (3.5-5.1); Protein, Total 6.9 g/dL (6.4-8.2); Sodium Level 134 mmol/L (136-145)
[2022-10-01 08:29] LABS: Absolute Lymphocyte Count 1.15 X10^3/uL (0.83-4.51); Absolute Neutrophil Count 2.1 X10^3/uL (2.0-7.7); Basophil# 0.02 X10^3/uL; Basophil% 0.5 % (0-1); Eosinophil# 0.04 X10^3/uL; Eosinophils% 1.1 % (0-5); Hematocrit 23.1 % (40-54); Hemoglobin 7.4 g/dL (13.0-16.5); Lymphocyte # 1.15 X10^3/ul (0.83-4.51); Lymphocyte % 31.5 % (19-41); Mean Corpuscular Hgb 28.6 pg (27.0-32.0); Mean Corpuscular Volume 89.2 fL (80-94); Mean Platelet Vol. 9.5 fl (6.2-12.0); Monocyte# 0.32 X10^3/uL; Monocyte% 8.8 % (0-10); NRBC Flagged by Analyzer 0 % (0-5); Neutrophil % 57.6 % (47-70); POSITIVE MORPHOLOGY YES; Platelet Count 179 K/mm3 (150-450); RBC Distribution Width CV 15.3 % (11.6-14.6); RBC Distribution Width SD 47.4 fl (35.1-43.9); Red Blood Count 2.59 M/mm3 (4.6-6.2); White Blood Count 3.7 K/mm3 (4.4-11.0)
[2022-10-01 08:34] LABS: Differential Indicated SCAN CRITERIA MET
[2022-10-01 09:38] LABS: Differential Comment SCANNED; Hypochromasia 2+; Microcytosis 2+
[2022-10-01] MEDS: Creon 12,000 unit DR CapSULE 2 CAP PO ×2 (10:07→17:58)
[2022-10-01] MEDS: Aspirin 81 MG TAB.CHEW PO (10:07)
[2022-10-01] MEDS: amLODIPine 5 MG Tablet PO (10:08)
[2022-10-01] MEDS: methIMAzole 10 MG TABLET 30 MG PO (10:08)
[2022-10-01] MEDS: Pantoprazole Sodium 40 MG Tablet PO (10:08)
[2022-10-01] MEDS: rifAXIMin 550 MG Tablet PO ×2 (10:09→20:35)
[2022-10-01] MEDS: Sertraline 100 MG Tablet PO (10:09)
[2022-10-01] MEDS: Lactulose 20 GM/30 ML UDC PO ×2 (10:16→20:33)
[2022-10-01] MEDS: Ensure Clear 120 ML Liquid PO ×2 (10:18→16:30)
[2022-10-01] MEDS: Potassium Chloride 10mEq/100mL 10 MEQ/100 ML IV.SOLN. 100 MEQ IV BOLUS ×4 (10:26→20:28)
[2022-10-01] MEDS: HEPARIN/D5w 25,000 UNITS 25,000 UNITS/250 ML IV.SOLN. 6 UNITS CONT INF (10:53)
[2022-10-01 11:25] LABS: Bedside Glucose 168 mg/dL (74-106)
--- NOTE | 2022-10-01 11:41 | NURSING ---
pt currently is too sleepy to sign consent form for blood transfusion. has left, expect her back.
[2022-10-01 11:45] LABS: Partial Thromboplast Time 54.2 Seconds (24.1-36.2)
[2022-10-01] MEDS: 0.9% Saline Lock 10 ML Syringe IV ×4 (11:48→19:03)
[2022-10-01] MEDS: Heparin Injection (Vial) 5,000 UNIT/ML VIAL IV (12:15)
[2022-10-01] MEDS: Furosemide 40 MG/4 ML Vial IV ×2 (12:31→17:24)
[2022-10-01 17:40] LABS: Bedside Glucose 199 mg/dL (74-106)
--- NOTE | 2022-10-01 18:07 | PCM.PN.HOSP ---
Subjective Subjective Follow-up on acute pancreatitis/pancreatic pseudocyst: Patient was seen and examined.? He denied any new complaints.? Patient's and daughter at the bedside.? Patient was said to be confused according to them.? Nursing reports that patient is intermittently confused. Objective Data Objective Data Vital Signs: Vital Signs Temp Pulse Resp BP Pulse Ox O2 Del Method 98.3 F 90 20 H 150/78 H 92 Room Air 10/01/22 15:14 10/01/22 15:18 10/01/22 15:14 10/01/22 15:14 10/01/22 15:18 10/01/22 15:18 Oxygen Delivery Method Room Air Weight: 62.3 kg Body Mass Index (BMI) 22.3 Intake & Output: Intake and Output for Last 24 Hours 09/29/22 09/30/22 10/01/22 23:59 23:59 23:59 Intake Total 2405.82 / 2405.82 920.49 / 920.49 311.79 / 311.79 Output Total 3050 / 3700 3650 / 3650 1050 / 1050 Balance -644.18 / -1294.18 -2729.51 / -2729.51 -738.21 / -738.21 Medical Nutrition Assessment Dietitian: Malnutrition Criteria Met Start: 09/16/22 14:13 Freq: Status: Active Protocol: Document 09/27/22 14:09 RMA (Rec: 09/27/22 14:09 RMA [id number]) Nutrition Malnutrition Evidence of Malnutrition Exists Yes Malnutrition (severe): Acute Illness/Injury Evidenced By Suboptimal Energy Intake ( Severe),Weight Loss (Severe), Physical Changes (Severe) Intake Problem Inadequate Oral Intake Etiology related to altered GI function /inflammation Signs/Symptoms as evidenced by clear liquid diet and need for parenteral nutrition support Status Active Problem Clinical Problem Acute Disease or Injury Related Malnutrition Etiology severe, acute malnutrition related to inadequate energy intake d/t GI dysfunction Signs/Symptoms as evidenced by unintentional 45#/27% wt loss < 1 month; estimated PO intake meeting < 50% of estimated energy needs >5 days; severe muscle wasting /fat loss per physical exam Status Active Problem Recommendation Dietitian Recommendations/Changes Consult today to order and implement parenteral nutrition support. Will order TPN day #1: 1 L 8% amino acid/14% dextrose with electrolytes, MVI, folic acid and trace elements @ 42 ml/hr to provide 798 kcal, 140 gm dextrose, 80 gm protein. No lipids today. No insulin and no famotidine per provider. TPN will meet ~50% estimated calorie needs and ~100% estimated protein needs. Triglyceride level ordered 1 time per week; mag/phos ordered x 3 days. Will monitor daily weights, labs and electrolytes closely. Continue clear liquid diet as tolerated---will d/c ensure clear with meals. Resume solid foods as able with fat-restricted diet as indicated. Continue 120 ml ensure clear 4 times per day w/ medpass as tolerated. Lab / Micro Data Result Diagrams: 10/01/22 05:30 10/01/22 05:30 Labs: Laboratory Results - last 24 hr 09/30/22 23:00: APTT 81.6 H 09/30/22 23:04: POC Glucose 182 H 10/01/22 05:30: WBC 3.7 L, RBC 2.59 L, Hgb 7.4 L, Hct 23.1 L, MCV 89.2, MCH 28.6, MCHC 32.0, RDW Std Deviation 47.4 H, RDW Coeff of Fili 15.3 H, Plt Count 179, MPV 9.5, Immature Gran % (Auto) 0.500, Neut % (Auto) 57.6, Lymph % (Auto) 31.5, [place] % (Auto) 8.8, Eos % (Auto) 1.1, Baso % (Auto) 0.5, Absolute Neuts (auto) 2.1, Absolute Lymphs (auto) 1.15, Nucleated RBC % 0, Differential Comment SCANNED, Hypochromasia 2+, Microcytosis 2+ 10/01/22 05:30: Sodium 134 L, Potassium 3.2 L, Chloride 96 L, Carbon Dioxide 31.0, Anion Gap 7, BUN 12, Creatinine 1.01, Estim Creat Clear Calc 63.82, Est GFR (MDRD) Af Amer 98, Est GFR (MDRD) Non-Af 81, BUN/Creatinine Ratio 11.9, Glucose 156 H, Calcium 8.2 L, Phosphorus 4.3, Magnesium 1.8, Total Bilirubin 0.50, AST 70 H, ALT 46, Alkaline Phosphatase 283 H, Total Protein 6.9, Albumin 2.7 L, Globulin 4.2, Albumin/Globulin Ratio 0.6 L 10/01/22 05:35: APTT 69.1 H 10/01/22 06:27: POC Glucose 158 H 10/01/22 10:38: POC Glucose 168 H 10/01/22 11:20: APTT 54.2 H 10/01/22 11:20: Blood Type O NEGATIVE, Antibody Screen NEGATIVE, Crossmatch See Detail 10/01/22 16:21: POC Glucose 199 H Micro: Microbiology 09/15/22 21:55 Blood Culture (Wb) - Right Forearm Blood Culture - Final No growth in 5 days. 09/15/22 21:44 Blood Culture (Wb) - Anticubital Right Blood Culture - Final No growth in 5 days. Physical Exam Narrative Physical exam: General: Alert, Oriented x3, Cooperative, appears frail, unwell HEENT: Atraumatic Oral: Moist Mucosa Neck: Supple Lungs: Diminished to auscultation Cardiovascular: HS I+II, regular, no murmurs Abdomen: Bowel Sounds Present, soft, appears distended, improved epigastric tenderness without guarding or rebound tenderness Extremities:Bilateral leg edema +2, BRIDGETTE wraps to legs Skin: No rashes, No breakdown Neurological: Grossly intact Psych/Mental Status: Appropriate Assessment & Plan Assessment/Plan (1) Pancreatitis: QUALIFIERS: Chronicity: acute Pancreatitis type: unspecified pancreatitis type Acute pancreatitis complication: no infection or necrosis Qualified Code(s): K85.90 - Acute pancreatitis without necrosis or infection, unspecified (2) Hyperthyroidism: (3) Abnormal EKG: (4) Hyperkalemia: (5) Pancreatic pseudocyst: (6) Weight loss: (7) Encephalopathy: PLAN: Plan 1.Acute pancreatitis, unclear etiology, complicated by pseudocyst of the head and uncinate process of the pancreas on admission Patient oral intake has been good with food his brings in Last CT scan of the abdomen done on 09/25/[address] changes of acute on chronic pancreatitis stable cirrhosis, pancreatic ductal dilatation and peripancreatic inflammation. Continue to encourage oral intake Continue on IV Zosyn -we will stop about this today GI following. General surgery recommended outpatient follow-up 2. Acute portal vein thrombosis, confirmed on last CT of the abdomen pelvis which showed stable thrombosis of the intrahepatic, hepatic and extrahepatic portal veins, switched to Eliquis today 3. Liver cirrhosis with anasarca, unclear etiology, LFTs are not elevated, continue on Lasix 4. Severe protein-calorie malnutrition, logging contractor consulted, will encourage oral intake 5. Hypokalemia/hypomagnesemia, replaced, recheck in a.m. 6. Acute blood loss anemia, hemoglobin is 7.4, will transfuse 1 unit of packed RBCs Status post EGD on 09/21/22 showed LA grade B erosive esophagitis, gastric antral vascular ectasia without bleeding, 1 nonbleeding duodenal ulcer with no stigmata of bleeding, biopsied. 7. Acute delirium, hypoactive, multifactorial, less likely from acute hepatic encephalopathy as LFTs and ammonia abnormal Delirium appears resolved, continue trazodone 25 mg QHS 8. Hyperthyroidism, continue methimazole 9. DVT ppx -Eliquis Disposition: [facility] Charges/Coding Visit Charges Inpatient E&M: 04018 Subs Hosp L2
[2022-10-01 18:36] LABS: Partial Thromboplast Time 79.8 Seconds (24.1-36.2)
[2022-10-01] MEDS: APIXABAN 5 MG TABLET PO (19:02)
[2022-10-01] MEDS: traZODone 50 MG Tablet 25 MG PO (20:33)
[2022-10-01] MEDS: Atorvastatin Calcium 20 MG Tablet PO (20:34)
[2022-10-01 21:06] LABS: Bedside Glucose 252 mg/dL (74-106)
[2022-10-02] VITALS (7 sets, daily range): BP systolic 137–159; BP diastolic 84–96; PULSE 80–91; RESP 16; TEMP 36.6–36.9; O2SAT 92–97
[2022-10-02] MEDS: Insulin Lispro 100 UNIT/ML INSULN.PEN SC ×2 (06:40→11:33)
[2022-10-02] MEDS: Metoclopramide 5 MG TABLET PO ×2 (06:41→10:28)
[2022-10-02 07:05] LABS: Bedside Glucose 181 mg/dL (74-106)
[2022-10-02 07:38] LABS: Absolute Lymphocyte Count 1.37 X10^3/uL (0.83-4.51); Absolute Neutrophil Count 2.6 X10^3/uL (2.0-7.7); Basophil# 0.02 X10^3/uL; Basophil% 0.4 % (0-1); Eosinophil# 0.05 X10^3/uL; Eosinophils% 1.1 % (0-5); Hematocrit 26.8 % (40-54); Hemoglobin 8.8 g/dL (13.0-16.5); Lymphocyte # 1.37 X10^3/ul (0.83-4.51); Lymphocyte % 30.6 % (19-41); Mean Corp Hgb Conc 32.8 g/dL (32-36); Mean Corpuscular Hgb 28.6 pg (27.0-32.0); Monocyte# 0.37 X10^3/uL; Monocyte% 8.3 % (0-10); NRBC Flagged by Analyzer 0 % (0-5); Neutrophil # 2.64 X10^3/uL (2.7-7.7); Neutrophil % 59.2 % (47-70); POSITIVE MORPHOLOGY YES; Platelet Count 164 K/mm3 (150-450); RBC Distribution Width CV 15.9 % (11.6-14.6); RBC Distribution Width SD 47.4 fl (35.1-43.9); Red Blood Count 3.08 M/mm3 (4.6-6.2); White Blood Count 4.5 K/mm3 (4.4-11.0)
[2022-10-02 07:46] LABS: Differential Indicated SCAN CRITERIA MET
[2022-10-02 07:54] LABS: ALB/GLOB Ratio 0.7 RATIO (0.9-2.4); AST(SGOT) 61 U/L (15-37); Alanine Aminotransfer ALT/SGPT 45 U/L (16-61); Albumin, Serum 2.9 g/dL (3.2-5.0); Alkaline Phosphatase 285 U/L (45-117); Anion Gap 8 (5-15); BUN 9 mg/dL (7-18); BUN/Creat Ratio 9.2 RATIO (10-20); Calcium,Total 8.4 mg/dL (8.5-10.1); Chloride 95 mmol/L (98-107); Creatinine, Serum 0.98 mg/dL (0.70-1.30); EST Glomerular Filtration Rate 84 mL/min (>60); Est Glom Filt Rate - Afr Amer 102 mL/min (>60); Estimated Creatinine Clearance 65.77 ml/min; Globulin 4.3 g/dL (2.2-4.2); Glucose 190 mg/dL (74-106); Potassium 3.3 mmol/L (3.5-5.1); Protein, Total 7.2 g/dL (6.4-8.2); Sodium Level 133 mmol/L (136-145)
[2022-10-02 07:59] LABS: Magnesium 2.5 mg/dL (1.6-2.6); Phosphorus 3.1 mg/dL (2.5-4.9)
[2022-10-02 08:32] LABS: Anisocytosis 1+; Hypochromasia 1+
[2022-10-02 08:33] LABS: Atypical Lymphocyte RARE %
[2022-10-02] MEDS: APIXABAN 5 MG TABLET PO ×2 (08:59→11:32)
[2022-10-02] MEDS: rifAXIMin 550 MG Tablet PO (08:59)
[2022-10-02] MEDS: Lactulose 20 GM/30 ML UDC PO (08:59)
[2022-10-02] MEDS: Furosemide 40 MG Tablet PO (08:59)
[2022-10-02] MEDS: amLODIPine 5 MG Tablet PO (08:59)
[2022-10-02] MEDS: Sertraline 100 MG Tablet PO (08:59)
[2022-10-02] MEDS: Pantoprazole Sodium 40 MG Tablet PO (08:59)
[2022-10-02] MEDS: Ensure Clear 120 ML Liquid PO ×2 (08:59→13:18)
[2022-10-02] MEDS: methIMAzole 10 MG TABLET 30 MG PO (08:59)
[2022-10-02] MEDS: Aspirin 81 MG TAB.CHEW PO (09:00)
[2022-10-02] MEDS: Creon 12,000 unit DR CapSULE 2 CAP PO ×2 (09:00→11:32)
--- NOTE | 2022-10-02 10:27 | PCM.DC ---
Discharge Instructions Diet Discharge Diet: No restrictions Activity Discharge Activity: Return to Normal Activity Follow Up Care Test Results: Test results from this visit will be discussed in further detail at your follow-up appointment, if applicable. Discharge Plan Admission Admit Date/Time: 09/15/22 18:25 Primary Reason for Your Visit: Pancreatic pseudocyst Attending Provider: Josi Hernandez Primary Care Provider: Cristopher Oliveros Consulting Providers: Lamberto Franco ; Law Barajas ; Сергей Franklin ; Elizabeth Roger Instructions Additional Instructions / Restrictions: Take note of changes to your medication Continue on pancreatic enzymes with each meal Continue Reglan therapy on a scheduled basis over the next 7 days along with PPI therapy and protein supplementation f/u with GI as outpt for CA 19-9 and EUS after pancreatitis resolves Follow-up with your pest control worker helper for thyroid medication adjustment Discharge Orders/Prescriptions Prescriptions: New furosemide 40 mg Tablet 40 mg PO BIDLX 30 Days Qty: 60 0RF trazodone 50 mg Tablet 25 mg PO QHS 30 Days Qty: 15 0RF sertraline 100 mg Tablet 100 mg PO DAILY 30 Days Qty: 30 0RF metoclopramide HCl 5 mg Tablet 5 mg PO TIDAC 30 Days Qty: 90 0RF pantoprazole 40 mg Tablet,Delayed Release (Dr/Ec) 40 mg PO DAILY 30 Days Qty: 30 0RF methimazole 10 mg Tablet 30 mg PO DAILY 30 Days Qty: 90 0RF Creon 12,000-38,000 -60,000 unit Capsule,Delayed Release(Dr/Ec) 2 cap PO TIDCM 30 Days Qty: 180 0RF Xifaxan 550 mg Tablet 550 mg PO BID 30 Days Qty: 60 0RF lactulose 20 gram/30 mL Solution 20 g PO BID 30 Days Qty: 1800 0RF potassium chloride [Klor-Con M20] 20 mEq tablet,ER particles/crystals 40 meq PO BID 5 Days Qty: 20 0RF amlodipine 10 mg tablet 10 mg PO DAILY 30 Days Qty: 30 0RF Eliquis DVT-PE Treat 30D Start 5 mg (74 tabs) tablets,dose pack See Taper PO BID Qty: 74 0RF Taper: Apixaban VTE Treatment 10 mg TWICE A DAY for 7 Days 5 mg TWICE A DAY for 30 Days Continued atorvastatin 40 mg tablet 40 mg PO DAILY buspirone 5 mg tablet 5 mg PO TID aspirin 81 mg Tablet,Chewable 81 mg PO DAILY Discontinued metformin 500 mg tablet 500 mg PO DAILY sertraline 100 mg tablet 200 mg PO DAILY propranolol 40 mg tablet 40 mg PO 4X/DAY trazodone 100 mg tablet 200 mg PO QHS PRN (Reason: Insomnia) omeprazole 20 mg capsule,delayed release(DR/EC) 20 mg PO DAILY methimazole 10 mg tablet 10 mg PO 5X/DAY Referrals / Follow Up: Cristopher Oliveros DO [Primary Care Provider] - 10/05/22 10:00 am Supa Santana MD [Non-Staff] - FriendHuber DO [Med Staff - Active Staff] - Within 2 Weeks Disposition Disposition (needs filled in before D/C Order can be placed): Home Health Service
[2022-10-02] MEDS: Potassium Chloride Oral Tablet 20 MEQ 60 MEQ PO (10:28)
--- NOTE | 2022-10-02 11:08 | PCM.DC.SUM ---
Providers Date of Admission: 09/15/22 Date of Discharge: 10/02/22 Primary Care Physician: Dr. Cristopher Oliveros, Consultations 09/15/22 21:42 Consult: Gastroenterology Routine Consulting Provider: [facility] Reason for Consult: Pancreatitis EMERGENT Consult: No Notified: Yes Date Notified: 09/15/22 Time Notified: 18:32 Method of Notification: Text 09/20/22 18:48 Consult: General Surgery Routine Consulting Provider: Сергей Franklin Reason for Consult: necrotic pancreatitis EMERGENT Consult: No Notified: Yes Date Notified: 09/21/22 Time Notified: 08:43 Method of Notification: notified per Dr. Momin Reason For Visit: PANCREATITIS Diagnosis Discharge Diagnosis (1) Pancreatitis: Status: Acute Code(s): K85.90 - Acute pancreatitis without necrosis or infection, unspecified Qualifiers: Acute pancreatitis complication: no infection or necrosis Chronicity: acute Pancreatitis type: unspecified pancreatitis type Qualified Code(s): K85.90 - Acute pancreatitis without necrosis or infection, unspecified (2) Hyperthyroidism: Status: Acute Code(s): E05.90 - Thyrotoxicosis, unspecified without thyrotoxic crisis or storm (3) Abnormal EKG: Status: Acute Code(s): R94.31 - Abnormal electrocardiogram [ECG] [EKG] (4) Hyperkalemia: Status: Acute Code(s): E87.5 - Hyperkalemia (5) Pancreatic pseudocyst: Status: Acute Code(s): K86.3 - Pseudocyst of pancreas (6) Weight loss: Status: Acute Code(s): R63.4 - Abnormal weight loss (7) Encephalopathy: Status: Acute Code(s): G93.40 - Encephalopathy, unspecified Plan 1.Acute pancreatitis, unclear etiology, complicated by pseudocyst of the head and uncinate process of the pancreas on admission 2. Acute portal vein thrombosis 3. Liver cirrhosis with anasarca 4. Severe protein-calorie malnutrition 5. Hypokalemia 6. Hypomagnesemia 7. Acute blood loss anemia 8. Acute delirium 9. Hyperthyroidism Medications at Discharge Home Medications aspirin 81 mg chewable tablet 81 mg PO DAILY HEART HEALTH 09/15/22 atorvastatin 40 mg tablet 40 mg PO DAILY CHOLESTEROL 09/15/22 buspirone 5 mg tablet 5 mg PO TID ANXIETY 09/15/22 amlodipine 10 mg tablet 10 mg PO DAILY 30 days #30 tabs 10/02/22 apixaban 5 mg (74 tabs) tablets in a dose pack (Eliquis DVT-PE Treat 30D Start) See Taper PO BID #74 tabs 10/02/22 furosemide 40 mg tablet 40 mg PO BIDLX 30 days #60 tabs 10/02/22 lactulose 20 gram/30 mL oral solution 20 g (30 mL) PO BID 30 days #1,800 mL 10/02/22 hphjjp-iwnbprhi-golwcta 12,000-38,000-60,000 unit capsule,delayed rel (Creon) 2 cap PO TIDCM 30 days #180 caps 10/02/22 methimazole 10 mg tablet 30 mg PO DAILY 30 days #90 tabs 10/02/22 metoclopramide HCl 5 mg tablet 5 mg PO TIDAC 30 days #90 tabs 10/02/22 pantoprazole 40 mg tablet,delayed release 40 mg PO DAILY 30 days #30 tabs 10/02/22 potassium chloride 20 mEq tablet,extended release(part/cryst) (Klor-Con M) 40 meq PO BID 5 days #20 tabs 10/02/22 rifaximin 550 mg tablet (Xifaxan) 550 mg PO BID 30 days #60 tabs 10/02/22 sertraline 100 mg tablet 100 mg PO DAILY 30 days #30 tabs 10/02/22 trazodone 50 mg tablet 25 mg PO QHS 30 days #15 tabs 10/02/22 Hospital Course Operations None Procedures 2-D Echocardiogram Summary of Care Provided Minutes Spent on Discharge: 35 Hospital Course: 56-year-old male with history of alcohol abuse, quit 4 years ago, recently admitted and discharged from [facility] on 09/06/2022 for acute pancreatitis and thyroid storm. Patient was started on methimazole for hyperthyroidism. Patient presented with abdominal pain and had a long and protracted hospital stay. Patient's hospital management was as follows: 1.Acute pancreatitis, unclear etiology, complicated by pseudocyst of the head and uncinate process of the pancreas on admission Last CT scan of the abdomen done on 09/25/[address] changes of acute on chronic pancreatitis stable cirrhosis, pancreatic ductal dilatation and peripancreatic inflammation. He completed IV Zosyn treatment to cover pancreatic pseudocyst. GI and general surgery were consulted. He will need to follow-up with GI within 2 weeks 2. Acute portal vein thrombosis, confirmed on last CT of the abdomen pelvis which showed stable thrombosis of the intrahepatic, hepatic and extrahepatic portal veins, discharged on Eliquis 3. Liver cirrhosis with anasarca, improved on Lasix, discharged on oral Lasix 4. 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 Hypokalemia/hypomagnesemia, replaced multiple times 6. Acute blood loss anemia, transfuse 1 unit of packed RBCs. Hemoglobin at discharge was 8.8 Status post EGD on 09/21/22 showed LA grade B erosive esophagitis, gastric antral vascular ectasia without bleeding, 1 nonbleeding duodenal ulcer with no stigmata of bleeding, biopsied. 7.? Acute delirium, hypoactive, multifactorial, Patient's ammonia and LFTs were normal but patient was managed on rifaximin, lactulose Delirium appears resolved, continue trazodone 25 mg QHS 8. Hyperthyroidism, continue methimazole, patient's repeat TSH was 0.05 from 0.01. Results were faxed to his primary coremaker machine. Recommended with his family to follow-up with endocrinology for other recommendations. 9. Type II DM, his metformin was held during this hospital stay, blood sugars were maintained on low insulin sliding scale 10. Debility, patient was seen by PT and OT and the plan initially was discharged to detention facility but however patient's felt that the patient would be fine at home. Patient was felt to be stable enough for discharge home with home health. Physical Exam Narrative Physical exam: General: Alert, Oriented x3, Cooperative, appears frail, unwell HEENT: Atraumatic Oral: Moist Mucosa Neck: Supple Lungs: Diminished to auscultation Cardiovascular: HS I+II, regular, no murmurs Abdomen: Bowel Sounds Present, soft, slightly tender epigastric region Extremities:Bilateral leg edema, trace Skin: No rashes, No breakdown Neurological: Grossly intact Psych/Mental Status: Appropriate Medical Records Data Medical Nutrition Assessment Dietitian: Malnutrition Criteria Met Start: 09/16/22 14:13 Freq: Status: Active Protocol: Document 09/27/22 14:09 RMA (Rec: 09/27/22 14:09 RMA [id number]) Nutrition Malnutrition Evidence of Malnutrition Exists Yes Malnutrition (severe): Acute Illness/Injury Evidenced By Suboptimal Energy Intake ( Severe),Weight Loss (Severe), Physical Changes (Severe) Intake Problem Inadequate Oral Intake Etiology related to altered GI function /inflammation Signs/Symptoms as evidenced by clear liquid diet and need for parenteral nutrition support Status Active Problem Clinical Problem Acute Disease or Injury Related Malnutrition Etiology severe, acute malnutrition related to inadequate energy intake d/t GI dysfunction Signs/Symptoms as evidenced by unintentional 45#/27% wt loss < 1 month; estimated PO intake meeting < 50% of estimated energy needs >5 days; severe muscle wasting /fat loss per physical exam Status Active Problem Recommendation Dietitian Recommendations/Changes Consult today to order and implement parenteral nutrition support. Will order TPN day #1: 1 L 8% amino acid/14% dextrose with electrolytes, MVI, folic acid and trace elements @ 42 ml/hr to provide 798 kcal, 140 gm dextrose, 80 gm protein. No lipids today. No insulin and no famotidine per provider. TPN will meet ~50% estimated calorie needs and ~100% estimated protein needs. Triglyceride level ordered 1 time per week; mag/phos ordered x 3 days. Will monitor daily weights, labs and electrolytes closely. Continue clear liquid diet as tolerated---will d/c ensure clear with meals. Resume solid foods as able with fat-restricted diet as indicated. Continue 120 ml ensure clear 4 times per day w/ medpass as tolerated. Weight / BMI Weight Weight: 59.8 kg Body Mass Index (BMI) 22.3 ABG / Lab / Microbiology Data Result Diagrams: 10/02/22 06:05 10/02/22 06:05 Laboratory: Laboratory Results - last 24 hr 10/01/22 10:38: POC Glucose 168 H 10/01/22 11:20: APTT 54.2 H 10/01/22 11:20: Blood Type O NEGATIVE, Antibody Screen NEGATIVE, Crossmatch See Detail 10/01/22 16:21: POC Glucose 199 H 10/01/22 18:20: APTT 79.8 H 10/01/22 20:32: POC Glucose 252 H 10/02/22 06:05: WBC 4.5, RBC 3.08 L, Hgb 8.8 L, Hct 26.8 L, MCV 87.0, MCH 28.6, MCHC 32.8, RDW Std Deviation 47.4 H, RDW Coeff of Fili 15.9 H, Plt Count 164, MPV 10.0, Immature Gran % (Auto) 0.400, Neut % (Auto) 59.2, Lymph % (Auto) 30.6, [place] % (Auto) 8.3, Eos % (Auto) 1.1, Baso % (Auto) 0.4, Absolute Neuts (auto) 2.6, Absolute Lymphs (auto) 1.37, Nucleated RBC % 0, Atypical Lymphocytes RARE, Hypochromasia 1+, Anisocytosis 1+ 10/02/22 06:05: Sodium 133 L, Potassium 3.3 L, Chloride 95 L, Carbon Dioxide 30.0, Anion Gap 8, BUN 9, Creatinine 0.98, Estim Creat Clear Calc 65.77, Est GFR (MDRD) Af Amer 102, Est GFR (MDRD) Non-Af 84, BUN/Creatinine Ratio 9.2 L, Glucose 190 H, Calcium 8.4 L, Total Bilirubin 1.40 H, AST 61 H, ALT 45, Alkaline Phosphatase 285 H, Total Protein 7.2, Albumin 2.9 L, Globulin 4.3 H, Albumin/Globulin Ratio 0.7 L 10/02/22 06:05: Phosphorus 3.1, Magnesium 2.5 10/02/22 06:38: POC Glucose 181 H Microbiology: Microbiology 09/15/22 21:55 Blood Culture (Wb) - Right Forearm Blood Culture - Final No growth in 5 days. 09/15/22 21:44 Blood Culture (Wb) - Anticubital Right Blood Culture - Final No growth in 5 days. D/C Instructions Discharge Diet: No restrictions Meaningful Use Info Meaningful Use Diagnoses (Choose all that apply): None applicable Discharge Plan Admission Admit Date/Time: 09/15/22 18:25 Primary Reason for Your Visit: Pancreatic pseudocyst Attending Provider: Josi Hernandez Primary Care Provider: Cristopher Oliveros Consulting Providers: Lamberto Franco ; Law Barajas ; Сергей Franklin ; Elizabeth Roger Instructions Additional Instructions / Restrictions: Take note of changes to your medication Continue on pancreatic enzymes with each meal Continue Reglan therapy on a scheduled basis over the next 7 days along with PPI therapy and protein supplementation f/u with GI as outpt for CA 19-9 and EUS after pancreatitis resolves Follow-up with your coremaker machine for thyroid medication adjustment Discharge Orders/Prescriptions Prescriptions: New furosemide 40 mg Tablet 40 mg PO BIDLX 30 Days Qty: 60 0RF trazodone 50 mg Tablet 25 mg PO QHS 30 Days Qty: 15 0RF sertraline 100 mg Tablet 100 mg PO DAILY 30 Days Qty: 30 0RF metoclopramide HCl 5 mg Tablet 5 mg PO TIDAC 30 Days Qty: 90 0RF pantoprazole 40 mg Tablet,Delayed Release (Dr/Ec) 40 mg PO DAILY 30 Days Qty: 30 0RF methimazole 10 mg Tablet 30 mg PO DAILY 30 Days Qty: 90 0RF Creon 12,000-38,000 -60,000 unit Capsule,Delayed Release(Dr/Ec) 2 cap PO TIDCM 30 Days Qty: 180 0RF Xifaxan 550 mg Tablet 550 mg PO BID 30 Days Qty: 60 0RF lactulose 20 gram/30 mL Solution 20 g PO BID 30 Days Qty: 1800 0RF potassium chloride [Klor-Con M20] 20 mEq tablet,ER particles/crystals 40 meq PO BID 5 Days Qty: 20 0RF amlodipine 10 mg tablet 10 mg PO DAILY 30 Days Qty: 30 0RF Eliquis DVT-PE Treat 30D Start 5 mg (74 tabs) tablets,dose pack See Taper PO BID Qty: 74 0RF Taper: Apixaban VTE Treatment 10 mg TWICE A DAY for 7 Days 5 mg TWICE A DAY for 30 Days Continued atorvastatin 40 mg tablet 40 mg PO DAILY buspirone 5 mg tablet 5 mg PO TID aspirin 81 mg Tablet,Chewable 81 mg PO DAILY Discontinued metformin 500 mg tablet 500 mg PO DAILY sertraline 100 mg tablet 200 mg PO DAILY propranolol 40 mg tablet 40 mg PO 4X/DAY trazodone 100 mg tablet 200 mg PO QHS PRN (Reason: Insomnia) omeprazole 20 mg capsule,delayed release(DR/EC) 20 mg PO DAILY methimazole 10 mg tablet 10 mg PO 5X/DAY Referrals / Follow Up: Cristopher Oliveros DO [Primary Care Provider] - 10/05/22 10:00 am Huber Magdaleno DO [Med Staff - Active Staff] - Within 2 Weeks Supa Santana MD [Non-Staff] - Disposition Disposition (needs filled in before D/C Order can be placed): Home Health Service Charges/Coding Visit Charges Inpatient E&M: 09413 Disch Hosp >30min
[2022-10-02 11:55] LABS: Bedside Glucose 194 mg/dL (74-106)
--- NOTE | 2022-10-02 12:11 | CASEMGMT ---
TC from [facility] nurse who states pt needs PA for xifaxin. TC to [facility] Retail pharmacy, received phone number from Klaudia. TC to , spoke with Amelia, approval received but states this may take up to 72 hours for med to be ran and approved in the system. TC to [facility] to make aware. Note for RN CM to follow up on Tuesday per [facility]'s request.
--- NOTE | 2022-10-12 09:51 | CASEMGMT ---
Addendum entered by Sampson Wolff 10/19/22 15:09: Call received from [facility], stating the [facility] order that was faxed 09/17 was not signed by physician. MARCK FLORES noted that Dr Barajas did sign the [facility] order on 09/17/22 and this was faxed to [facility] at this time. Original Note: MARCK FLORES NOTE: Call received from [facility], requesting signed [facility] order be faxed, as she was unable to locate the order. MARCK FLORES informed her the order was placed 09/17/22, signed by Dr Barajas, and sent w/initial [facility] referral, but that this RN MARK would fax to [facility] again at this time. She states she will check to confirm the order placed on 09/17 will be okay, as pt was not discharged home w/[facility] until 10/02/22. She states will call RN MARK back if she needs further information. Katya TOLLIVER RN, CM
== END 2022-10-02 14:28 | disposition home health service (06) | DRG 438 ==
LOC: ED 17:58 → PCU 18:44
PROVIDERS: Anesthesiology; Internal Medicine; Internal Medicine Gastroenterology; Emergency Provider Emergency Medicine; PCP Student in an Organized Health Care Education/Training Program; Visit Provider Internal Medicine
PROC: 0DJ08ZZ Inspection of Upper Intestinal Tract, Via Natural or Artificial Opening Endoscopic (ICD-10-PCS; CPT 43235; principal; 2022-09-21 14:55)
DX: K85.01 Idiopathic acute pancreatitis with uninfected necrosis (principal); I81 Portal vein thrombosis; G93.41 Metabolic encephalopathy; E43 Unspecified severe protein-calorie malnutrition; E87.1 Hypo-osmolality and hyponatremia; D62 Acute posthemorrhagic anemia; K86.3 Pseudocyst of pancreas; K26.9 Duodenal ulcer, unspecified as acute or chronic, without hemorrhage or perforation; K74.60 Unspecified cirrhosis of liver; E86.0 Dehydration; E11.9 Type 2 diabetes mellitus without complications; K86.1 Other chronic pancreatitis; E87.6 Hypokalemia; E87.5 Hyperkalemia; E03.9 Hypothyroidism, unspecified; K20.80 Other esophagitis without bleeding; D50.9 Iron deficiency anemia, unspecified; E83.42 Hypomagnesemia; E05.90 Thyrotoxicosis, unspecified without thyrotoxic crisis or storm; F10.11 Alcohol abuse, in remission; F17.210 Nicotine dependence, cigarettes, uncomplicated; K31.819 Angiodysplasia of stomach and duodenum without bleeding; K85.91 Acute pancreatitis with uninfected necrosis, unspecified; Z68.22 Body mass index [BMI] 22.0-22.9, adult; Z79.84 Long term (current) use of oral hypoglycemic drugs; Z79.82 Long term (current) use of aspirin; Z79.01 Long term (current) use of anticoagulants; Z79.899 Other long term (current) drug therapy; Z87.891 Personal history of nicotine dependence; Z90.49 Acquired absence of other specified parts of digestive tract; R94.31 Abnormal electrocardiogram [ECG] [EKG]
CPT/HCPCS: 36415; 36569; 36600; 74174; 74175; 74177; 74181; 80053; 81001; 82140; 82150; 82728; 82803; 82962; 83036; 83540; 83550; 83605; 83615; 83690; 83735; 84100; 84439; 84443; 84478; 84481; 84484; 85014; 85018; 85025; 85610; 85652; 85730; 86140; 86850; 86900; 86901; 86920; 86922; 87040; 88305; 93005; 93306; 97110; 97116; 97162; 97166; 97530; 97535; 97802; 97803; 99284; 99406; J2185; J7030; J7040; J7120; P9016; P9047; Q9967; A4216; J1940; J2405